=== PATIENT | female | born 1945 | race Two or more races ===

== ENCOUNTER 2019-07-13 22:54 | Emergency (ER) | payer BC, MEDICARE, OTHER ==
[~2019-07-13] VITALS: Ht 167.6 cm; Wt 83.9 kg
--- NOTE | 2019-07-13 23:00 | NUR ---
biba for evaluation of abd pain and backache. - n/v, - diarrhea, - hematuria or dysuria.
[2019-07-13] MEDS ORDERED: IV NS 0.9% 1,000 ML BAG IV ONE (23:30)
[2019-07-13 23:38] LABS: BASOPHILS % (AUTO) 0.4 % (0.0-2.0); EOSINOPHILS % (AUTO) 1.8 % (0.0-6.0); HEMATOCRIT 40 % (33-45); HEMOGLOBIN 13.4 g/dL (11.5-14.8); MEAN CORPUSCULAR HGB CONC 33 g/dl (31.0-36.0); MEAN CORPUSCULAR VOLUME 83 fL (82-100); MONOCYTES # (AUTO) 0.9 /CMM (0.1-1.30); NEUTROPHILS # (AUTO) 9.1 /CMM (1.8-8.9); NEUTROPHILS % (AUTO) 74.8 % (43.0-81.0); PLATELET COUNT (AUTO) 254 /CMM (150-450); RED BLOOD CELL COUNT(AUTO) 4.88 MIL/uL (4.0-5.2); WHITE BLOOD COUNT (AUTO) 12.2 K/uL (4.3-11.0)
--- NOTE | 2019-07-13 23:45 | NUR ---
us tech at the bed side
[2019-07-13 23:46] LABS: CALCIUM, SERUM 10.2 mg/dL (8.5-10.1); CARBON DIOXIDE 27 mmol/L (21-32); CHLORIDE 103 mmol/L (98-107); GLUCOSE 153 mg/dL (74-106); POTASSIUM 4.1 mmol/L (3.5-5.1); SODIUM SERUM 140 mmol/L (136-145); UREA NITROGEN, BLOOD 12 mg/dL (7-18)
[2019-07-13 23:50] LABS: ALANINE AMINOTRANSFERASE 59 U/L (12-78); ALBUMIN 3.6 g/dL (3.4-5.0); ALKALINE PHOSPHATASE 97 U/L (46-116); ASPARTATE AMINOTRANSFERASE 29 U/L (15-37); BILIRUBIN,DIRECT 0.1 mg/dL (0.0-0.2); BILIRUBIN,TOTAL 0.4 mg/dL (0.2-1.0); LIPASE 109 U/L (73-393); TOTAL PROTEIN, SERUM 7.7 g/dL (6.4-8.2)
[2019-07-13] MEDS ORDERED: IOHEXOL-300 100 ML VIAL IV ONE (23:52)
[2019-07-13] MEDS ORDERED: CT SWABBABLE VALVE TRANS SET 1 EA INFUS.SET MC ONE (23:52)
[2019-07-14 01:46] LABS: APPEARANCE,URINE Clear (CLEAR); BILIRUBIN,URINE Negative (NEGATIVE); BLOOD, URINE Negative Ery/uL (NEGATIVE); COLOR,URINE Yellow (YELLOW); KETONES,URINE 15 (NEGATIVE); LEUKOCYTE ESTERASE ,URINE Negative (NEGATIVE); NITRITE, URINE Negative (NEGATIVE); PROTEIN,URINE Negative (NEGATIVE); UGLUCOSE 500 MG/DL mg/dL (NEGATIVE); UROBILINOGEN,URINE 0.2 EU/dL (0.2)
--- NOTE | 2019-07-14 02:10 | NUR ---
IV removed. Catheter intact and site benign. Pressure and 4x4 applied to site. No bleeding noted.Patient discharged to home in stable condition. Rx and Written and verbal after care instructions given. Patient verbalizes understanding of instruction.
[2019-07-14 02:14] VITALS: BP 143/78
[2019-07-14 03:58] LABS: BACTERIA,URINE Few /HPF (None Seen); RBC,URINE 0-2 /HPF (0-2); SQUAMOUS EPITHELIAL CELL,UR Few /HPF (None Seen)
[2019-07-15] MEDS ORDERED: VALS80TA2 PO (17:52)
[2019-07-15] MEDS ORDERED: DULA0.75 SQ (17:52)
[2019-07-15] MEDS ORDERED: EMPA1TAB9 PO (17:54)
== END 2019-07-14 02:15 | disposition home or self-care (01) ==
LOC: ER 22:56
DX: K80.20 Calculus of gallbladder without cholecystitis without obstruction (principal); E11.65 Type 2 diabetes mellitus with hyperglycemia; M54.5 Low back pain; I10 Essential (primary) hypertension
CPT/HCPCS: 36415; 71045; 76705; 80048; 80076; 81001; 82150; 83690; 84484; 85025; 85730; 93005; 96360; 99284; J7030; Q9967; 74178; 81000-TC

== ENCOUNTER 2019-07-15 13:34 | Inpatient (IN) | payer MEDICARE, BC ==
[~2019-07-15] VITALS: Ht 167.6 cm; Wt 95.3 kg
[2019-07-15] MEDS ORDERED: IV NS 0.9% 1,000 ML BAG IV ONE (15:00)
[2019-07-15 15:09] LABS: BASOPHILS % (AUTO) 0.1 % (0.0-2.0); HEMATOCRIT 40 % (33-45); HEMOGLOBIN 12.9 g/dL (11.5-14.8); LYMPHOCYTES # (AUTO) 1.1 /CMM (0.8-4.8); LYMPHOCYTES % (AUTO) 4.5 % (20.0-44.0); MEAN CORPUSCULAR HGB CONC 32 g/dl (31.0-36.0); MEAN CORPUSCULAR VOLUME 84 fL (82-100); MONOCYTES # (AUTO) 2.2 /CMM (0.1-1.30); MONOCYTES % (AUTO) 9.3 % (2.0-12.0); NEUTROPHILS # (AUTO) 20.6 /CMM (1.8-8.9); NEUTROPHILS % (AUTO) 86.1 % (43.0-81.0); PLATELET COUNT (AUTO) 193 /CMM (150-450); RED BLOOD CELL COUNT(AUTO) 4.81 MIL/uL (4.0-5.2); WHITE BLOOD COUNT (AUTO) 23.9 K/uL (4.3-11.0)
[2019-07-15 15:16] LABS: CALCIUM, SERUM 9.3 mg/dL (8.5-10.1); CARBON DIOXIDE 25 mmol/L (21-32); CHLORIDE 101 mmol/L (98-107); CREATININE 0.8 mg/dL (0.6-1.3); GLUCOSE 196 mg/dL (74-106); POTASSIUM 4.5 mmol/L (3.5-5.1); SODIUM SERUM 137 mmol/L (136-145); UREA NITROGEN, BLOOD 12 mg/dL (7-18)
[2019-07-15 15:22] LABS: ALANINE AMINOTRANSFERASE 35 U/L (12-78); ALKALINE PHOSPHATASE 83 U/L (46-116); ASPARTATE AMINOTRANSFERASE 25 U/L (15-37); BILIRUBIN,DIRECT 0.2 mg/dL (0.0-0.2); LIPASE 45 U/L (73-393)
[2019-07-15] MEDS ORDERED: IV NS 0.9% 250 ML IV ONE (16:57)
[2019-07-15] MEDS ORDERED: IOHEXOL-300 100 ML VIAL IV ONE (16:57)
[2019-07-15] MEDS ORDERED: CT SWABBABLE VALVE TRANS SET 1 EA INFUS.SET MC ONE (16:57)
[2019-07-15 17:27] LABS: APPEARANCE,URINE Clear (CLEAR); BLOOD, URINE Negative Ery/uL (NEGATIVE); COLOR,URINE Yellow (YELLOW); KETONES,URINE 80 (NEGATIVE); LEUKOCYTE ESTERASE ,URINE Negative (NEGATIVE); NITRITE, URINE Negative (NEGATIVE); PROTEIN,URINE Trace mg/dl (NEGATIVE); UGLUCOSE 500 MG/DL mg/dL (NEGATIVE); UROBILINOGEN,URINE 0.2 EU/dL (0.2)
[2019-07-15 17:28] LABS: BILIRUBIN,URINE NEGATIVE (NEGATIVE)
[2019-07-15 17:43] LABS: BACTERIA,URINE Rare /HPF (None Seen); RBC,URINE 0-2 /HPF (0-2); SQUAMOUS EPITHELIAL CELL,UR Few /HPF (None Seen); WBC,URINE 0-2 /HPF (0-3)
[2019-07-15] MEDS ORDERED: VALS80TA2 PO (17:52)
[2019-07-15] MEDS ORDERED: DULA0.75 SQ (17:52)
[2019-07-15] MEDS ORDERED: EMPA1TAB9 PO (17:54)
[2019-07-15 20:45] VITALS: BP 145/80
[2019-07-15] MEDS ORDERED: DEXTROSE 50%-WATER 50 ML DISP.SYRIN IV PRN (21:30)
[2019-07-15] MEDS ORDERED: ACETAMINOPHEN 325 MG TABLET PO PRN (21:30)
[2019-07-15] MEDS ORDERED: KETOROLAC TROMETHAMINE INJ 30 MG/ML VIAL IV PRN (21:30)
[2019-07-15] MEDS ORDERED: HYDROCODONE/APAP 5/325MG 1 EACH TABLET PO PRN (21:30)
[2019-07-15] MEDS ORDERED: Z GUARD REMEDY 2 OZ OINT TP PRN (21:30)
[2019-07-15] MEDS ORDERED: ZOLPIDEM TARTRATE 5 MG TABLET PO PRN (21:30)
[2019-07-15] MEDS ORDERED: ONDANSETRON HCL/PF 4 MG/2 ML VIAL IVP PRN (21:30)
[2019-07-15] MEDS ORDERED: MAGNESIUM HYDROXIDE 30 ML UDC PO PRN (21:30)
[2019-07-15] MEDS: IV NS 0.9% 1,000 ML IV PRN (23:23)
[2019-07-16] VITALS (43 sets, daily range): BP systolic 89–150; BP diastolic 47–80
[2019-07-16] MEDS ORDERED: PIPERACILLIN /TAZOBACTAM 3.375 G VIAL IV ONE ×2 (00:01→05:57)
[2019-07-16] MEDS: PIPERACILLIN /TAZOBACTAM 3.375 G in IV D5W 50 ML IV SCH ×2 (00:10→06:05)
[2019-07-16] MEDS: BLOOD SUGAR DIAGNOSTIC 1 EACH STRIP IN SCH ×5 (00:32→23:41)
[2019-07-16 06:34] LABS: BASOPHILS % (AUTO) 0.1 % (0.0-2.0); EOSINOPHILS % (AUTO) 0.1 % (0.0-6.0); HEMATOCRIT 37 % (33-45); LYMPHOCYTES # (AUTO) 1.2 /CMM (0.8-4.8); LYMPHOCYTES % (AUTO) 6.7 % (20.0-44.0); MEAN CORPUSCULAR HGB CONC 33 g/dl (31.0-36.0); MEAN CORPUSCULAR VOLUME 83 fL (82-100); MONOCYTES # (AUTO) 1.7 /CMM (0.1-1.30); MONOCYTES % (AUTO) 9.1 % (2.0-12.0); NEUTROPHILS # (AUTO) 15.4 /CMM (1.8-8.9); PLATELET COUNT (AUTO) 168 /CMM (150-450); RED BLOOD CELL COUNT(AUTO) 4.41 MIL/uL (4.0-5.2); WHITE BLOOD COUNT (AUTO) 18.3 K/uL (4.3-11.0)
[2019-07-16 07:18] LABS: CALCIUM, SERUM 8.1 mg/dL (8.5-10.1); CREATININE 0.9 mg/dL (0.6-1.3); MAGNESIUM 2.1 mg/dL (1.8-2.4); PHOSPHORUS 2.5 mg/dL (2.5-4.9); POTASSIUM 3.4 mmol/L (3.5-5.1)
[2019-07-16] MEDS ORDERED: BUPIVACAINE 0.5 % PF 150 MG/30 ML VIAL ONE (08:19)
[2019-07-16] MEDS: VALSARTAN 80 MG TABLET PO SCH (09:00)
[2019-07-16] MEDS ORDERED: MIDAZOLAM HCL 2 MG/2ML VIAL ONE (09:40)
[2019-07-16] MEDS ORDERED: FENTANYL PF 100MCG/2ML AMPUL ONE (09:40)
[2019-07-16] MEDS ORDERED: MORPHINE SULFATE INJ 2 MG/ML DISP.SYRIN IV PRN ×2 (10:00→13:30)
[2019-07-16] MEDS ORDERED: PROPOFOL 100 ML IV PRN (11:00)
[2019-07-16] MEDS ORDERED: FENTANYL PF 100MCG/2ML AMPUL IV PRN (11:00)
[2019-07-16] MEDS ORDERED: DOPamine 400 MG in IV D5W 250 ML IV PRN (11:00)
[2019-07-16 11:20] LABS: ABG BASE EXCESS -6.4 mmol/L; ABG OXYGEN SATURATION 91.5 % (92.0-98.5); ABG PCO2 35.2 mmHg (35.0-45.0); ABG PO2 64.9 mmHg (75.0-100.0); AaDO2 612.9 mmHg; COHb 0.9 % (0.5-1.5); MetHb 0.7 % (0.0-1.5); PEEP,BG 5 cm H2O; SITE, ABG A-Line; VT, ABG 800 mL
[2019-07-16] MEDS: POTASSIUM CL. PREMIX PERIPHER. 50 ML IV SCH ×2 (11:28→12:30)
[2019-07-16] MEDS: IV NS 0.9% 1,000 ML IV PRN (11:29)
[2019-07-16] MEDS ORDERED: MIDAZOLAM HCL 2 MG/2ML VIAL IV PRN (12:00)
[2019-07-16] MEDS ORDERED: HYDROCODONE/APAP 5/325MG 1 EACH TABLET PO PRN (13:30)
[2019-07-16] MEDS: PIPERACILLIN /TAZOBACTAM 3.375 G in IV D5W 100 ML IV SCH ×2 (14:16→22:17)
[2019-07-16 14:37] LABS: ABG BASE EXCESS -6.1 mmol/L; ABG OXYGEN SATURATION 96.3 % (92.0-98.5); ABG PCO2 33.8 mmHg (35.0-45.0); ABG PH 7.356 (7.350-7.450); AaDO2 86.2 mmHg; COHb 0.3 % (0.5-1.5); MetHb 0.7 % (0.0-1.5); O2Hb 95.3 % (94.0-97.0); SITE, ABG A-Line; VENT MODE, BG CPAP5 / PS 10
[2019-07-16] MEDS ORDERED: ACETAMINOPHEN 650 MG/SUPP.RECT RC PRN (16:00)
[2019-07-17] VITALS (20 sets, daily range): BP systolic 93–142; BP diastolic 45–77
[2019-07-17] MEDS: IV NS 0.9% 1,000 ML IV PRN ×2 (02:00→13:47)
[2019-07-17] MEDS ORDERED: ALBUMIN 25% 50 ML IV ONE ×2 (02:15→02:18)
[2019-07-17 04:28] LABS: HEMATOCRIT 32 % (33-45); HEMOGLOBIN 10.5 g/dL (11.5-14.8); LYMPHOCYTES # (AUTO) 0.8 /CMM (0.8-4.8); LYMPHOCYTES % (AUTO) 5.8 % (20.0-44.0); MEAN CORPUSCULAR HGB CONC 33 g/dl (31.0-36.0); MEAN CORPUSCULAR VOLUME 84 fL (82-100); MONOCYTES # (AUTO) 1.1 /CMM (0.1-1.30); MONOCYTES % (AUTO) 7.8 % (2.0-12.0); NEUTROPHILS # (AUTO) 12.3 /CMM (1.8-8.9); NEUTROPHILS % (AUTO) 86.4 % (43.0-81.0); PLATELET COUNT (AUTO) 173 /CMM (150-450); RED BLOOD CELL COUNT(AUTO) 3.81 MIL/uL (4.0-5.2); WHITE BLOOD COUNT (AUTO) 14.3 K/uL (4.3-11.0)
[2019-07-17 04:52] LABS: APPEARANCE,URINE CLOUDY (CLEAR); BILIRUBIN,URINE 1+ (NEGATIVE); BLOOD, URINE NEGATIVE Ery/uL (NEGATIVE); COLOR,URINE YELLOW (YELLOW); KETONES,URINE 1+ (NEGATIVE); LEUKOCYTE ESTERASE ,URINE NEGATIVE (NEGATIVE); NITRITE, URINE NEGATIVE (NEGATIVE); PH,URINE 5.5 (5.0-8.0); PROTEIN,URINE TRACE mg/dl (NEGATIVE); UGLUCOSE 3+ mg/dL (NEGATIVE); UROBILINOGEN,URINE 0.2 EU/dL (0.2)
[2019-07-17 04:53] LABS: CALCIUM, SERUM 8.1 mg/dL (8.5-10.1); CARBON DIOXIDE 25 mmol/L (21-32); CHLORIDE 107 mmol/L (98-107); CREATININE 0.9 mg/dL (0.6-1.3); GLUCOSE 170 mg/dL (74-106); MAGNESIUM 2.3 mg/dL (1.8-2.4); PHOSPHORUS 2.8 mg/dL (2.5-4.9); POTASSIUM 3.9 mmol/L (3.5-5.1); SODIUM SERUM 141 mmol/L (136-145); UREA NITROGEN, BLOOD 27 mg/dL (7-18)
[2019-07-17 05:05] LABS: BACTERIA,URINE Few /HPF (None Seen); RBC,URINE 0-2 /HPF (0-2); SQUAMOUS EPITHELIAL CELL,UR Rare /HPF (None Seen); URINE AMORPHOUS URATE Many /HPF (None Seen); WBC,URINE 0-2 /HPF (0-3)
[2019-07-17] MEDS: PIPERACILLIN /TAZOBACTAM 3.375 G in IV D5W 100 ML IV SCH ×3 (05:22→22:02)
[2019-07-17] MEDS: BLOOD SUGAR DIAGNOSTIC 1 EACH STRIP IN SCH ×4 (05:31→23:20)
[2019-07-17] MEDS: VALSARTAN 80 MG TABLET PO SCH (08:12)
[2019-07-17] MEDS ORDERED: MENTHOL/CETYLPYRD (CEPACOL) 1 LOZ LOZENGE PO PRN (11:30)
[2019-07-17] MEDS: INSULIN REGULAR, HUMAN 100 UNIT/ML 3 ML VIAL SQ PRN (11:41)
[2019-07-17] MEDS: ACETYLCYSTEINE 10% SOLN 400 MG/4 ML VIAL NEB SCH ×2 (14:00→23:51)
[2019-07-17] MEDS: ALBUTEROL FS 2.5 MG/0.5 ML VIAL.NEB NEB SCH ×2 (14:00→19:41)
[2019-07-17] MEDS: IPRATROPIUM NEB FS 0.5 MG/2.5 ML AMPUL.NEB NEB SCH ×2 (14:00→19:41)
[2019-07-17 17:10] LABS: ALBUMIN 2.2 g/dL (3.4-5.0); BILIRUBIN,TOTAL 0.5 mg/dL (0.2-1.0); CALCIUM, SERUM 8.3 mg/dL (8.5-10.1); CREATININE 0.9 mg/dL (0.6-1.3); POTASSIUM 3.5 mmol/L (3.5-5.1); TOTAL PROTEIN, SERUM 6.3 g/dL (6.4-8.2)
[2019-07-18 00:53] VITALS: BP 132/59
[2019-07-18] MEDS: IV NS 0.9% 1,000 ML IV PRN (03:45)
[2019-07-18 04:00] VITALS: BP 127/61
[2019-07-18] MEDS: PIPERACILLIN /TAZOBACTAM 3.375 G in IV D5W 100 ML IV SCH ×3 (04:58→20:17)
[2019-07-18] MEDS: BLOOD SUGAR DIAGNOSTIC 1 EACH STRIP IN SCH ×3 (05:19→23:30)
[2019-07-18 07:13] LABS: BASOPHILS % (AUTO) 0.4 % (0.0-2.0); EOSINOPHILS % (AUTO) 1.1 % (0.0-6.0); HEMATOCRIT 32 % (33-45); HEMOGLOBIN 10.4 g/dL (11.5-14.8); LYMPHOCYTES # (AUTO) 1.2 /CMM (0.8-4.8); LYMPHOCYTES % (AUTO) 14.9 % (20.0-44.0); MEAN CORPUSCULAR HGB CONC 33 g/dl (31.0-36.0); MEAN CORPUSCULAR VOLUME 84 fL (82-100); MONOCYTES # (AUTO) 0.7 /CMM (0.1-1.30); MONOCYTES % (AUTO) 9.1 % (2.0-12.0); NEUTROPHILS % (AUTO) 74.5 % (43.0-81.0); PLATELET COUNT (AUTO) 199 /CMM (150-450); WHITE BLOOD COUNT (AUTO) 8.1 K/uL (4.3-11.0)
[2019-07-18] MEDS: IPRATROPIUM NEB FS 0.5 MG/2.5 ML AMPUL.NEB NEB SCH ×4 (07:44→20:03)
[2019-07-18] MEDS: ALBUTEROL FS 2.5 MG/0.5 ML VIAL.NEB NEB SCH ×4 (07:44→20:03)
[2019-07-18] MEDS: ACETYLCYSTEINE 10% SOLN 400 MG/4 ML VIAL NEB SCH ×3 (07:45→23:51)
[2019-07-18 07:57] LABS: BILIRUBIN,TOTAL 0.6 mg/dL (0.2-1.0); CREATININE 0.8 mg/dL (0.6-1.3); MAGNESIUM 1.9 mg/dL (1.8-2.4); PHOSPHORUS 1.7 mg/dL (2.5-4.9); POTASSIUM 3.5 mmol/L (3.5-5.1); TOTAL PROTEIN, SERUM 5.8 g/dL (6.4-8.2)
[2019-07-18 08:00] VITALS: BP 130/63
[2019-07-18] MEDS: VALSARTAN 80 MG TABLET PO SCH (09:07)
[2019-07-18] MEDS ORDERED: K PHOS NEUTRAL 250 MG TABLET PO ONE (11:30)
[2019-07-18 12:00] VITALS: BP_SYST 130; BP_SYST 134; BP_DIAS 63; BP_DIAS 69
[2019-07-18] MEDS ORDERED: FUROSEMIDE 20 MG/2 ML VIAL IV ONE (12:00)
[2019-07-18 16:00] VITALS: BP_SYST 134; BP_SYST 135; BP_DIAS 67; BP_DIAS 69
[2019-07-18 20:00] VITALS: BP 136/61
[2019-07-18] MEDS: INSULIN REGULAR, HUMAN 100 UNIT/ML 3 ML VIAL SQ PRN (23:31)
[2019-07-19] MEDS: PIPERACILLIN /TAZOBACTAM 3.375 G in IV D5W 100 ML IV SCH ×3 (04:08→20:30)
[2019-07-19] MEDS: BLOOD SUGAR DIAGNOSTIC 1 EACH STRIP IN SCH ×4 (05:23→23:38)
[2019-07-19 06:58] LABS: BASOPHILS % (AUTO) 0.8 % (0.0-2.0); EOSINOPHILS % (AUTO) 2.6 % (0.0-6.0); HEMATOCRIT 32 % (33-45); HEMOGLOBIN 10.7 g/dL (11.5-14.8); LYMPHOCYTES # (AUTO) 1.2 /CMM (0.8-4.8); LYMPHOCYTES % (AUTO) 19.2 % (20.0-44.0); MEAN CORPUSCULAR HGB CONC 33 g/dl (31.0-36.0); MEAN CORPUSCULAR VOLUME 84 fL (82-100); MONOCYTES # (AUTO) 0.7 /CMM (0.1-1.30); MONOCYTES % (AUTO) 10.6 % (2.0-12.0); NEUTROPHILS # (AUTO) 4.2 /CMM (1.8-8.9); NEUTROPHILS % (AUTO) 66.8 % (43.0-81.0); PLATELET COUNT (AUTO) 203 /CMM (150-450); RED BLOOD CELL COUNT(AUTO) 3.88 MIL/uL (4.0-5.2); WHITE BLOOD COUNT (AUTO) 6.3 K/uL (4.3-11.0)
[2019-07-19 07:36] LABS: CALCIUM, SERUM 8.6 mg/dL (8.5-10.1); CREATININE 0.8 mg/dL (0.6-1.3); MAGNESIUM 1.8 mg/dL (1.8-2.4); PHOSPHORUS 2.7 mg/dL (2.5-4.9); POTASSIUM 3.4 mmol/L (3.5-5.1)
[2019-07-19] MEDS: ALBUTEROL FS 2.5 MG/0.5 ML VIAL.NEB NEB SCH ×4 (07:57→19:55)
[2019-07-19] MEDS: IPRATROPIUM NEB FS 0.5 MG/2.5 ML AMPUL.NEB NEB SCH ×4 (07:57→19:55)
[2019-07-19] MEDS: ACETYLCYSTEINE 10% SOLN 400 MG/4 ML VIAL NEB SCH ×3 (07:57→22:41)
[2019-07-19 08:00] VITALS: BP 122/58
[2019-07-19] MEDS: VALSARTAN 80 MG TABLET PO SCH (09:00)
[2019-07-19] MEDS ORDERED: POTASSIUM CHLORIDE 20 MEQ TAB.PRT.SR PO SCH (10:30)
[2019-07-19] MEDS: INSULIN REGULAR, HUMAN 100 UNIT/ML 3 ML VIAL SQ PRN ×2 (12:22→17:13)
[2019-07-19] MEDS ORDERED: POTASSIUM CHLORIDE 20 MEQ TAB.PRT.SR PO ONE (15:00)
[2019-07-19 16:00] VITALS: BP 120/62
[2019-07-19 18:29] VITALS: BP 109/64
[2019-07-19 20:00] VITALS: BP 159/69
[2019-07-20 04:00] VITALS: BP 146/70
[2019-07-20] MEDS: PIPERACILLIN /TAZOBACTAM 3.375 G in IV D5W 100 ML IV SCH ×2 (04:10→12:05)
[2019-07-20] MEDS: BLOOD SUGAR DIAGNOSTIC 1 EACH STRIP IN SCH ×2 (05:45→11:48)
[2019-07-20 08:00] VITALS: BP 152/73
[2019-07-20] MEDS: IPRATROPIUM NEB FS 0.5 MG/2.5 ML AMPUL.NEB NEB SCH ×2 (08:10→11:34)
[2019-07-20] MEDS: ACETYLCYSTEINE 10% SOLN 400 MG/4 ML VIAL NEB SCH (08:11)
[2019-07-20] MEDS: ALBUTEROL FS 2.5 MG/0.5 ML VIAL.NEB NEB SCH ×2 (08:11→11:34)
[2019-07-20 08:33] VITALS: BP 152/73
[2019-07-20] MEDS: VALSARTAN 80 MG TABLET PO SCH (08:33)
[2019-07-20 08:36] LABS: CALCIUM, SERUM 8.7 mg/dL (8.5-10.1); CREATININE 0.8 mg/dL (0.6-1.3); POTASSIUM 3.6 mmol/L (3.5-5.1)
[2019-07-20] MEDS ORDERED: CIPR-262 PO (10:13)
[2019-07-20] MEDS ORDERED: METR500T PO (10:13)
[2019-07-20] MEDS: INSULIN REGULAR, HUMAN 100 UNIT/ML 3 ML VIAL SQ PRN (11:48)
== END 2019-07-20 14:20 | disposition home health service (06) | DRG 417 ==
LOC: ER 13:41 → MEDSG1 20:09 → ICU 07-16 10:00 → TELE-TD 07-17 15:43 → MEDSG1 07-18 09:47
PROVIDERS: ADMIT Nurse Practitioner Acute Care; ATTEND Nurse Practitioner Acute Care
PROC: 0FT44ZZ Resection of Gallbladder, Percutaneous Endoscopic Approach (ICD-10-PCS; principal; 2019-07-16)
DX: K81.0 Acute cholecystitis (principal); J96.00 Acute respiratory failure, unspecified whether with hypoxia or hypercapnia; E44.1 Mild protein-calorie malnutrition; D68.59 Other primary thrombophilia; J98.11 Atelectasis; E11.9 Type 2 diabetes mellitus without complications; K74.60 Unspecified cirrhosis of liver; I10 Essential (primary) hypertension; E66.01 Morbid (severe) obesity due to excess calories; D64.9 Anemia, unspecified; R16.1 Splenomegaly, not elsewhere classified; Z68.33 Body mass index [BMI] 33.0-33.9, adult; E88.09 Other disorders of plasma-protein metabolism, not elsewhere classified; D72.829 Elevated white blood cell count, unspecified; Z90.710 Acquired absence of both cervix and uterus; Z79.84 Long term (current) use of oral hypoglycemic drugs
CPT/HCPCS: 36415; 36600; 71045-TC; 74022-TC; 74178; 76705-TC; 80048-TC; 80053-TC; 80061-TC; 80076-TC; 81000-TC; 82150-TC; 82803-TC; 82962-TC; 83605-TC; 83690-TC; 83735-TC; 84100-TC; 84484-TC; 85025-TC; 85730-TC; 87040-TC; 87081-TC; 87086-TC; 88304-TC; 88312-TC; 92526; 92611-TC; 94799-TC; 97110-TC; 97116-TC; 97530-TC; A6253; A6403; C1751; G0378; J0690; J1100; J1265; J1815; J1940; J2250; J2543; J2704; J2765; J3010; J3480; J3490; J7030; J7050; J7060; P9047; Q9967

== ENCOUNTER 2020-08-23 17:21 | Emergency (ER) | payer BC, MEDICARE ==
[~2020-08-23] VITALS: Ht 170.2 cm; Wt 90.3 kg
[~2020-08-23 17:21] MED LIST: CIPR-262 PO; DULA0.75 SQ; EMPA1TAB9 PO; METR500T PO; VALS80TA2 PO
--- NOTE | 2020-08-23 17:21 | NUR ---
PT BIBRA FROM HOME C/O ABDOMINAL PAIN FOR 2 WEEKS. PT IS AAOX4, NOT IN RESPIRATORY DISTRESS, HOOKED TO TRUCK DRIVER INSTRUCTOR V/S STABLE, KEPT RESTED AND COMFORTABLE. WILL CONTINUE TO MONITOR.
--- NOTE | 2020-08-23 17:25 | NUR ---
IV LINE ESTABLISHED BLOOD DRAWN AND SENT TO LAB.
--- NOTE | 2020-08-23 17:32 | NUR ---
SEEN AND EXAMINED BY .
--- NOTE | 2020-08-23 17:40 | NUR ---
PT REFUSED IV INSERTION AND INSISTED TO START ONLY IN THE AC. MD JIMENES.
[2020-08-23] MEDS ORDERED: IOHEXOL-300 100 ML VIAL IV ONE (17:46)
[2020-08-23] MEDS ORDERED: IV NS 0.9% 250 ML IV ONE (17:46)
--- NOTE | 2020-08-23 17:46 | NUR ---
ER PHLEB AT BEDSIDE FOR BLOOD DRAW.
[2020-08-23] MEDS: MORPHINE SULFATE INJ 2 MG/ML DISP.SYRIN IV ONE ×2 (17:47→17:59)
[2020-08-23] MEDS ORDERED: MORPHINE SULFATE INJ 4 MG/ML DISP.SYRIN ONE (17:58)
[2020-08-23 18:18] LABS: BASOPHILS % (AUTO) 0.4 % (0.0-2.0); EOSINOPHILS % (AUTO) 0.4 % (0.0-6.0); HEMATOCRIT 39 % (33-45); HEMOGLOBIN 12.6 g/dL (11.5-14.8); LYMPHOCYTES # (AUTO) 0.9 /CMM (0.8-4.8); LYMPHOCYTES % (AUTO) 28.2 % (20.0-44.0); MEAN CORPUSCULAR HGB CONC 33 g/dl (31.0-36.0); MEAN CORPUSCULAR VOLUME 79 fL (82-100); MONOCYTES # (AUTO) 0.3 /CMM (0.1-1.30); NEUTROPHILS # (AUTO) 1.9 /CMM (1.8-8.9); PLATELET COUNT (AUTO) 96 /CMM (150-450); RED BLOOD CELL COUNT(AUTO) 4.88 MIL/uL (4.0-5.2); WHITE BLOOD COUNT (AUTO) 3.1 K/uL (4.3-11.0)
--- NOTE | 2020-08-23 18:18 | NUR ---
LEVELMAN AT BEDSIDE FOR XRAY.
[2020-08-23] MEDS ORDERED: MECLIZINE HCL 25 MG TABLET ONE (18:19)
[2020-08-23] MEDS ORDERED: ONDANSETRON HCL/PF 4 MG/2 ML VIAL ONE (18:19)
[2020-08-23] MEDS ORDERED: MECLIZINE HCL 12.5 MG TABLET PO ONE (18:30)
[2020-08-23] MEDS ORDERED: ONDANSETRON HCL/PF - ER 4 MG/2 ML VIAL IV ONE (18:30)
[2020-08-23 18:31] LABS: CALCIUM, SERUM 8.5 mg/dL (8.5-10.1); CARBON DIOXIDE 24 mmol/L (21-32); CHLORIDE 103 mmol/L (98-107); CREATININE 0.8 mg/dL (0.6-1.3); GLUCOSE 123 mg/dL (74-106); SODIUM SERUM 140 mmol/L (136-145); UREA NITROGEN, BLOOD 15 mg/dL (7-18)
--- NOTE | 2020-08-23 18:39 | NUR ---
URINE SPECIMEN COLLECTED AND SENT TO LAB.
[2020-08-23 18:41] LABS: ALANINE AMINOTRANSFERASE 47 U/L (12-78); ALBUMIN 2.9 g/dL (3.4-5.0); ALKALINE PHOSPHATASE 101 U/L (46-116); ASPARTATE AMINOTRANSFERASE 59 U/L (15-37); BILIRUBIN,DIRECT 0.1 mg/dL (0.0-0.2); BILIRUBIN,TOTAL 0.4 mg/dL (0.2-1.0); LIPASE 116 U/L (73-393); TOTAL PROTEIN, SERUM 6.7 g/dL (6.4-8.2)
[2020-08-23 19:19] LABS: APPEARANCE,URINE CLEAR (CLEAR); BILIRUBIN,URINE SMALL (NEGATIVE); COLOR,URINE DARK YELLO (YELLOW); KETONES,URINE TRACE (NEGATIVE); LEUKOCYTE ESTERASE ,URINE NEGATIVE (NEGATIVE); NITRITE, URINE NEGATIVE (NEGATIVE); PROTEIN,URINE TRACE mg/dl (NEGATIVE); UGLUCOSE 250 MG/DL mg/dL (NEGATIVE)
[2020-08-23 19:27] LABS: BLOOD, URINE NEGATIVE Ery/uL (NEGATIVE)
[2020-08-23 19:36] LABS: LYMPHOCYTES % (MANUAL) 30 % (16-48); MONOCYTES % (MANUAL) 8 % (0-11.0); NEUTROPHILS % (MANUAL) 62 (42-76)
--- NOTE | 2020-08-23 21:39 | NUR ---
Patient discharged to home in stable condition. Written and verbal after care instructions given. Patient verbalizes understanding of instruction. IV removed. Catheter intact and site benign. Pressure and 4x4 applied to site. No bleeding noted.
[2020-08-23 22:47] VITALS: BP 139/80
== END 2020-08-23 21:39 | disposition home or self-care (01) ==
LOC: ER 17:29
DX: U07.1 COVID-19 (principal); R19.7 Diarrhea, unspecified; R10.9 Unspecified abdominal pain; E11.9 Type 2 diabetes mellitus without complications; Z79.84 Long term (current) use of oral hypoglycemic drugs; Z90.710 Acquired absence of both cervix and uterus; R91.8 Other nonspecific abnormal finding of lung field
CPT/HCPCS: 36415; 71045; 74177; 80048; 80076; 81001; 83605; 83690; 84484; 85007; 85025; 87426; 93005; 96374; 99285; J2270; J2405 ×2; J7050; J8597; Q9967; 81000-TC; C9803

== ENCOUNTER 2020-10-04 19:39 | Inpatient (IN) | payer MEDICARE ==
[~2020-10-04] VITALS: Ht 170.2 cm; Wt 69.4 kg
--- NOTE | 2020-10-04 19:45 | NUR ---
PT COREYRA 102 FROM HOME FOR C/O ALOC X1 DAY. PER EMS , PT WAS DIAGNOSED W COVID A FEW WEEKS AGO AND IS CURRENTLY TAKING CIPRO FOR UTI. PT AAOX1, RESPIRATIONS EVEN AND UNLABORED ON RA W/ NAD NOTED. PT CONNECTED TO THE RESOLUTION AGENT AND POX
[2020-10-04] MEDS ORDERED: ACETAMINOPHEN 650 MG/SUPP.RECT RC ONE ×2 (20:06→20:30)
--- NOTE | 2020-10-04 20:07 | NUR ---
XRAY AT BEDSIDE
--- NOTE | 2020-10-04 20:20 | NUR ---
GLAZIER SUPERVISOR AT BEDSIDE FOR BLOOD DRAW
[2020-10-04 20:28] LABS: BASOPHILS % (AUTO) 0.5 % (0.0-2.0); EOSINOPHILS % (AUTO) 0.2 % (0.0-6.0); HEMATOCRIT 46 % (33-45); LYMPHOCYTES # (AUTO) 0.5 /CMM (0.8-4.8); LYMPHOCYTES % (AUTO) 5.4 % (20.0-44.0); MEAN CORPUSCULAR HGB CONC 33 g/dl (31.0-36.0); MEAN CORPUSCULAR VOLUME 83 fL (82-100); MONOCYTES # (AUTO) 0.7 /CMM (0.1-1.30); NEUTROPHILS # (AUTO) 7.4 /CMM (1.8-8.9); NEUTROPHILS % (AUTO) 85.9 % (43.0-81.0); PLATELET COUNT (AUTO) 365 /CMM (150-450); RED BLOOD CELL COUNT(AUTO) 5.53 MIL/uL (4.0-5.2); WHITE BLOOD COUNT (AUTO) 8.6 K/uL (4.3-11.0)
[2020-10-04 20:37] LABS: BILIRUBIN,URINE Negative (NEGATIVE); BLOOD, URINE Moderate Ery/uL (NEGATIVE); COLOR,URINE DARK YELLOW (YELLOW); LEUKOCYTE ESTERASE ,URINE Large (NEGATIVE); NITRITE, URINE Positive (NEGATIVE); PH,URINE 6.5 (5.0-8.0); PROTEIN,URINE >=300 mg/dl (NEGATIVE); UGLUCOSE 500 MG/DL mg/dL (NEGATIVE); UROBILINOGEN,URINE 0.2 EU/dL (0.2)
--- NOTE | 2020-10-04 20:37 | NUR ---
SIMON COLLECTED AND SENT TO LAB
[2020-10-04 20:43] LABS: BACTERIA,URINE 4+ /HPF (None Seen); SQUAMOUS EPITHELIAL CELL,UR Few /HPF (None Seen); WBC,URINE 21-50 /HPF (0-3)
[2020-10-04 20:45] LABS: ALANINE AMINOTRANSFERASE 46 U/L (12-78); ALBUMIN 3.2 g/dL (3.4-5.0); ALKALINE PHOSPHATASE 206 U/L (46-116); ASPARTATE AMINOTRANSFERASE 31 U/L (15-37); BILIRUBIN,DIRECT 0.4 mg/dL (0.0-0.2); BILIRUBIN,TOTAL 0.7 mg/dL (0.2-1.0); CALCIUM, SERUM 10.3 mg/dL (8.5-10.1); CARBON DIOXIDE 24 mmol/L (21-32); CHLORIDE 96 mmol/L (98-107); CREATININE 2.3 mg/dL (0.6-1.3); SODIUM SERUM 132 mmol/L (136-145); TOTAL PROTEIN, SERUM 8.4 g/dL (6.4-8.2); UREA NITROGEN, BLOOD 29 mg/dL (7-18)
[2020-10-04 20:46] LABS: GLUCOSE 392 mg/dL (74-106)
--- NOTE | 2020-10-04 20:49 | NUR ---
(SISTER) [phone] PLEASE CALL FOR UPDATE
--- NOTE | 2020-10-04 21:01 | NUR ---
[facility] ([facility]) AND EMERGENCY CONTACT [phone]
--- NOTE | 2020-10-04 21:27 | NUR ---
Call from lab, rapid covid negative
[2020-10-04] MEDS ORDERED: NS 0.9% IV ONE (22:00)
[2020-10-04] MEDS ORDERED: CEFTRIAXONE 1 G in IV D5W 50 ML IV ONE (22:00)
[2020-10-04] MEDS ORDERED: VANCOMYCIN 1 GM in IV D5W 250 ML IV ONE (22:00)
--- NOTE | 2020-10-04 22:10 | NUR ---
COVIDPCR SAMPLE COLLECTED, SENT TO LAB.
[2020-10-04] MEDS ORDERED: CEFTRIAXONE 1 G VIAL ONE (22:12)
--- NOTE | 2020-10-04 22:23 | NUR ---
REPORT GIVEN TO DEMETRIO NASCIMENTO FOR MELVI
[2020-10-04] MEDS ORDERED: VANCOMYCIN 1 GM VIAL ONE (22:41)
[2020-10-04 23:00] VITALS: BP 164/75
--- NOTE | 2020-10-04 23:04 | NUR ---
PT TRANSFERRED TO ROOM PER ACLS PROTOCOL
--- NOTE | 2020-10-04 23:05 | NUR ---
TELE/SUPERVISOR TAN ROOM NOTES: REPORT GIVEN BY ER NURSE RANDY. PT ARRIVED TO THE UNIT AT 2300, STABLE VIA GURNEY. ON ROOM AIR, TRANSFERRED VIA ACLS PROTOCOL. PT. IS ABLE TO NON VERBAL IN ER PER RN RANDY. PT. IS RESPONSIVE TO STIMULUS. A/OX1, APPEARS TO BE CONFUSED AT THIS TIME AND UNABLE TO ANSWER QUESTIONS FOR ADMISSION. PT IS BED BOUND PER FAMILY. SKIN WAS ASSESSED AND PRESENTED REDNESS ON THE SACRUM WITH SKIN INTACT AND NO OPEN WOUNDS. REDNESS ON THE RIGHT ANKLE AND RIGHT CHEEK. PT DENIES PAIN AT THIS TIME. NO SOB NOTED. BREATHING EVEN AND UNLABORED. NO S/S OF DISTRESS. ORIENTED TO STAFF AND UNIT. SAFETY MEASURES IN PLACE. BED IN LOW, LOCKED POSITION WITH SR UPX2. CALL LIGHT WITHIN REACH. WILL CONTINUE TO MONITOR PT. ACCORDINGLY.
--- NOTE | 2020-10-04 23:20 | NUR ---
TELE/RN NOTES: PT CONNECTED TO THE TELE MONITOR. READING OF ST 130S. PT DENIES PAIN AT THIS TIME. PT CONFUSE AND UNABLE TO COMMUNICATE WELL.
[2020-10-05] MEDS ORDERED: ZOLPIDEM TARTRATE 5 MG TABLET PO PRN
[2020-10-05] MEDS ORDERED: HYDROCODONE/APAP 5/325MG TABLET PO PRN
[2020-10-05] MEDS ORDERED: MAG HYDROX/AL HYDROX/SIMETH 30 ML UDC PO PRN
[2020-10-05] MEDS ORDERED: ONDANSETRON HCL/PF 4 MG/2 ML VIAL IVP PRN
[2020-10-05] MEDS ORDERED: MAGNESIUM HYDROXIDE 30 ML UDC PO PRN
[2020-10-05] MEDS ORDERED: Z GUARD REMEDY 2 OZ OINT TP PRN
--- NOTE | 2020-10-05 00:15 | NUR ---
TELE/RN NOTES: LAB ([facility]) CALLED FOR CRITICAL RESULT LACTIC ACID OF 2.3. NOTIFIED DR. WISE. PER BILLIE, ORDER REPEAT LACTIC ACID BLOOD DRAW FOR 3AM. ORDER CARRIED OUT AND NOTED.
[2020-10-05] MEDS: ENOXAPARIN SODIUM 30 MG/0.3 ML DISP.SYRIN SQ SCH ×2 (00:40→21:14)
[2020-10-05] MEDS ORDERED: hydrALAZINE HCL IV 20 MG VIAL IV PRN (01:00)
--- NOTE | 2020-10-05 01:08 | NUR ---
TELE/RN NOTES: NOTIFIED DR. WISE REGARDING PT'S ELEVATED BP OF 167/90 HR:115. ORDERD HYDRALAZINE 25MG PO Q6 PRN FOR SBP 160.
[2020-10-05] MEDS: hydrALAZINE HCL 25 MG TABLET PO SCH ×2 (01:18→08:13)
[2020-10-05] MEDS ORDERED: IV NS 0.9% 1,000 ML IV ONE (01:30)
[2020-10-05 03:44] LABS: BASOPHILS % (AUTO) 0.4 % (0.0-2.0); HEMATOCRIT 45 % (33-45); HEMOGLOBIN 14.7 g/dL (11.5-14.8); LYMPHOCYTES # (AUTO) 0.4 /CMM (0.8-4.8); LYMPHOCYTES % (AUTO) 4.9 % (20.0-44.0); MEAN CORPUSCULAR HGB CONC 33 g/dl (31.0-36.0); MEAN CORPUSCULAR VOLUME 84 fL (82-100); MONOCYTES # (AUTO) 0.7 /CMM (0.1-1.30); MONOCYTES % (AUTO) 8.4 % (2.0-12.0); NEUTROPHILS # (AUTO) 7.2 /CMM (1.8-8.9); NEUTROPHILS % (AUTO) 86.3 % (43.0-81.0); PLATELET COUNT (AUTO) 297 /CMM (150-450); RED BLOOD CELL COUNT(AUTO) 5.39 MIL/uL (4.0-5.2); WHITE BLOOD COUNT (AUTO) 8.3 K/uL (4.3-11.0)
--- NOTE | 2020-10-05 03:48 | NUR ---
TELE/RN NOTES: DR. WISE INFORMED THAT PT IS HYPERTENSIVE BP OF 167/98. HR: 137. PER BILLIE, STOP FLUIDS FOR NOW AND ORDER CLONIDINE 0.1 MG PO Q8H PRN FOR SBP OVER 160.
[2020-10-05 03:59] LABS: CALCIUM, SERUM 9.7 mg/dL (8.5-10.1); CARBON DIOXIDE 21 mmol/L (21-32); CHLORIDE 98 mmol/L (98-107); CREATININE 1.9 mg/dL (0.6-1.3); MAGNESIUM 1.9 mg/dL (1.8-2.4); PHOSPHORUS 3.4 mg/dL (2.5-4.9); POTASSIUM 4.5 mmol/L (3.5-5.1); SODIUM SERUM 133 mmol/L (136-145); UREA NITROGEN, BLOOD 26 mg/dL (7-18)
[2020-10-05] MEDS ORDERED: CLONIDINE HCL 0.1 MG TABLET PO PRN (04:00)
[2020-10-05 04:02] LABS: GLUCOSE 396 mg/dL (74-106)
[2020-10-05 04:08] VITALS: BP 168/98
[2020-10-05 04:11] LABS: CHOLESTEROL 161 mg/dL (<200); HDL CHOLESTEROL 36 mg/dL (40-60); LDL 106 mg/dL (0-99); THYROID STIMULATING HORMONE 0.149 uIU/mL (0.358-3.74); TRIGLYCERIDES 120 mg/dL (30-150)
--- NOTE | 2020-10-05 04:11 | NUR ---
TELE/RN NOTES: LAB CALLED FOR CRITICAL RESULTS. LACTIC ACID OF 2.9 AND GLUCOSE 396. WILL CONTINUE TO MONITOR.
--- NOTE | 2020-10-05 04:19 | NUR ---
TELE/RN NOTES: PER DR. WISE, CONTINUE FLUIDS AND MAKE SURE PT IS ON A SLIDING SCALE. INFORMED THAT SHE IS ON MILD SLIDING SCALE.
[2020-10-05 04:42] VITALS: BP 158/92
[2020-10-05] MEDS: BLOOD SUGAR DIAGNOSTIC 1 EACH STRIP IN SCH ×2 (06:41→11:49)
[2020-10-05] MEDS: INSULIN REGULAR, HUMAN 100 UNIT/ML 3 ML VIAL SQ PRN ×3 (06:43→17:26)
--- NOTE | 2020-10-05 06:47 | NUR ---
TELE/RN NOTES: ACCUCHECK 463. ADMINISTERED COVERAGE 10UNITS REG INSULIN ORDERED PER SLIDING SCALE. NOTIFIED MAVERICKHI. WILL CONTINUE TO MONITOR.
--- NOTE | 2020-10-05 06:50 | NUR ---
TELE/RN CLOSING NOTES: PT. REMAINS STABLE. RESTING IN BED, A/OX1. NO SIGNIFICANT CHANGES IN CONDITION. PLACED ON 2L OXYGEN VIA NC. TELE READING OF SB 59. PT DENIES PAIN AT THIS TIME. NO SOB NOTED. BREATHING EVEN AND UNLABORED. NO S/S OF DISTRESS. SAFETY MEASURES KEPT IN PLACE. BED IN LOW, LOCKED POSITION WITH SR UPX2. KEPT WARM AND COMFORTABLE, CLEAN AND DRY AT ALL TIMES. ALL NURSING NEEDS MET AND ALL DUE MEDS GIVEN ORDERED. CALL LIGHT WITHIN REACH. WILL ENDORSE TO DAY SHIFT RN TO RECHECK BS. WILL ENDORSE TO DAY SHIFT FOR MELVI.
[2020-10-05] MEDS: PANTOPRAZOLE 40 MG TABLET.DR PO SCH (08:12)
--- NOTE | 2020-10-05 11:39 | NUR ---
WOUND CARE CONSULT: REVIEWED CHART, NURSING DOCUMENTATION AND PHOTOS WHICH INDICATE REDNESS TO RT LATERAL ANKLE AND RASH TO BUTTOCKS, PRESENT ON ADMISSION. RECOMMENDATIONS MADE FOR SKIN PROTECTION. DISCUSSED WITH NURSING STAFF. LOW AIRLOSS BED TO BE PLACED (MIESHA ISOFLEX). MD IN AGREEMENT WITH PLAN OF CARE.
[2020-10-05 11:54] VITALS: BP 139/83
--- NOTE | 2020-10-05 12:04 | NUR ---
Raoul Song notified BS level of 483.
[2020-10-05] MEDS ORDERED: IV NS 0.9% 500 ML IV ONE (13:00)
--- NOTE | 2020-10-05 13:04 | NUR ---
IV 0.9% 500 ml bolus running
[2020-10-05] MEDS ORDERED: DEXTROSE 50%-WATER 50 ML DISP.SYRIN IV PRN ×2 (13:30)
[2020-10-05] MEDS: CARVEDILOL 3.125 MG TABLET PO SCH ×2 (15:02→17:34)
[2020-10-05] MEDS: AMLODIPINE BESYLATE 5 MG TABLET PO SCH (15:03)
[2020-10-05] MEDS: ACETAMINOPHEN 325 MG TABLET PO PRN (15:17)
--- NOTE | 2020-10-05 15:17 | NUR ---
PATIENT NOTED WITH FEVER 101.2 . COOLING MEASURES IMPLEMENTED AND TYLENOL ADMINISTRATED
[2020-10-05] MEDS: CLOTRIMAZOLE/BETAMETASONE DIPROPIONATE 15 GM TUBE TP SCH (17:21)
[2020-10-05] MEDS: BLOOD SUGAR DIAGNOSTIC 1 EACH STRIP VI SCH ×2 (17:24→21:50)
[2020-10-05] MEDS: IV NS 0.9% 1,000 ML IV PRN (18:24)
--- NOTE | 2020-10-05 19:27 | NUR ---
Patient stats she feels better at this moment. VS are stable , afebrile at this time. Noted with low appetite. Skin treated with Lotrimin.IV fluids running as ordered. Patient kept clean and dry, Lotrimin applied to skin with redness and kim. All needs attended. Will endorse to next shift for MELVI .
--- NOTE | 2020-10-05 19:40 | NUR ---
FIBER ARTIST OPENING NOTES RECEIVED PATIENT IN BED, ALERT AND ORIENTED X 2-3. ARGENTINE SPEAKING VERBALLY RESPONSIVE AND ABLE TO FOLLOW SIMPLE DIRECTIONS. BREATHING REGULAR AND UNLABORED ON OXYGEN AT 2L/MIN VIA NASAL CANNULA, LATEST SPO2 96%. RIGHT HAND G22 IV LINE INTACT AND PATENT, INFUSING WELL WITH NO BLEEDING OR S/S OF INFILTRATION NOTED. ON CARDIAC MONITORING WITH SINUS TACHYCARDIA AT 102bpm. DENIES PAIN/DISCOMFORT AT THIS TIME. BED LOW AND LOCKED ON SEMI FOWLERS POSITION. CALL LIGHT IN REACH. WILL CONTINUE TO MONITOR.
[2020-10-05 20:00] VITALS: BP 141/82
[2020-10-05] MEDS: MEROPENEM 500 MG in IV NS 0.9% 50 ML IV SCH (20:41)
[2020-10-05] MEDS: NYSTATIN CREAM 15 GM TUBE TP SCH (20:41)
[2020-10-05] MEDS ORDERED: CEFTRIAXONE 1 G in IV D5W 50 ML IV SCH (21:00)
[2020-10-05] MEDS: FLUCONAZOLE IN NS 100 MG in PREMIX 1 EA IV SCH ×2 (21:13)
--- NOTE | 2020-10-05 21:30 | NUR ---
STRAP SETTER NOTES JONES CATHETER INSERTED, NOTED WITH CLOUDY ORANGY COLORED URINE 850CC FIRST DRAINED OUTPUT.
[2020-10-05] MEDS: *INSULIN REGULAR(HUMULIN R)HUM 100 UNIT/ML VIAL SQ PRN (21:53)
[2020-10-05] MEDS: DOXYCYCLINE 100 MG in IV D5W 100 ML IV SCH (22:15)
[2020-10-06] VITALS: BP 120/60
--- NOTE | 2020-10-06 01:30 | NUR ---
MACARONI PRESS OPERATOR NOTES LAB CALLED TO REPORT COVID NEGATIVE PCR RESULT. RN MODELING ANALYST AND CHARGE NURSE NOTIFIED WITH ORDERS TO TRANSFER PATIENT TO [facility] ROOM 324-1 FOR CONTINUITY OF CARE.
--- NOTE | 2020-10-06 02:00 | NUR ---
TRANSACTIONAL PARALEGAL NOTES TRANSFERRED PATIENT TO ROOM 324-1 VIA ACLS, REPORT GIVEN TO DEMETRIO ROSSI ON BEDSIDE. PATIENT REMAINED ALERT AND ORIENTED X 2-3 WITH NO DISTRESS NOTED. BELONGINGS, MEDICATIONS AND CHART ENDORSED ACCORDINGLY.
--- NOTE | 2020-10-06 02:01 | NUR ---
STRAIGHTENING MACHINE OPERATOR NOTES RECEIVED BEDSIDE REPORT FROM RAHAT ATKINSON FOR MELVI. WILL CONTINUE TO MONITOR.
[2020-10-06] MEDS: IV NS 0.9% 1,000 ML IV PRN ×2 (04:49→15:55)
[2020-10-06] MEDS: INSULIN REGULAR, HUMAN 100 UNIT/ML 3 ML VIAL SQ PRN ×3 (06:34→16:55)
[2020-10-06] MEDS: BLOOD SUGAR DIAGNOSTIC 1 EACH STRIP VI SCH ×4 (06:36→21:46)
--- NOTE | 2020-10-06 06:38 | NUR ---
CONCRETE MIXING TRUCK DRIVER NOTES PATIENT IN BED, ASLEEP, ALERT AND ORIENTED X 2-3. SLOVENIAN SPEAKING. BREATHING EVEN AND UNLABORED ON 2L NC. TELE MONITOR ST. WITH FC RUNNING TEA COLOR CLOUDY URINE. IV ON R HAND 22G RUNNING NS AT 100 ML/HR. SHOWS NO SIGNS OF INFILTRATION, NO REDNESS. ALL DUE MEDICATIONS GIVEN. ALL NEEDS ATTENDED TO. SAFETY PRECAUTIONS IN PLACE. BED IN LOWEST POSITION, LOCKED, AND CALL LIGHT KEPT WITHIN REACH. WILL ENDORSE TO ONCOMING NURSE.
[2020-10-06 07:05] LABS: BASOPHILS % (AUTO) 0.3 % (0.0-2.0); HEMATOCRIT 40 % (33-45); LYMPHOCYTES # (AUTO) 0.7 /CMM (0.8-4.8); LYMPHOCYTES % (AUTO) 8.6 % (20.0-44.0); MEAN CORPUSCULAR HGB CONC 32 g/dl (31.0-36.0); MEAN CORPUSCULAR VOLUME 84 fL (82-100); MONOCYTES # (AUTO) 0.8 /CMM (0.1-1.30); MONOCYTES % (AUTO) 9.8 % (2.0-12.0); NEUTROPHILS # (AUTO) 6.4 /CMM (1.8-8.9); NEUTROPHILS % (AUTO) 81.3 % (43.0-81.0); PLATELET COUNT (AUTO) 236 /CMM (150-450); WHITE BLOOD COUNT (AUTO) 7.9 K/uL (4.3-11.0)
[2020-10-06 07:33] LABS: CALCIUM, SERUM 9.1 mg/dL (8.5-10.1); CARBON DIOXIDE 23 mmol/L (21-32); CHLORIDE 106 mmol/L (98-107); CREATININE 1.5 mg/dL (0.6-1.3); GLUCOSE 233 mg/dL (74-106); POTASSIUM 3.7 mmol/L (3.5-5.1); SODIUM SERUM 138 mmol/L (136-145); UREA NITROGEN, BLOOD 32 mg/dL (7-18)
[2020-10-06 08:00] VITALS: BP 139/77
[2020-10-06] MEDS: PANTOPRAZOLE 40 MG TABLET.DR PO SCH (08:41)
[2020-10-06] MEDS: CARVEDILOL 3.125 MG TABLET PO SCH ×2 (08:42→16:34)
[2020-10-06] MEDS: AMLODIPINE BESYLATE 5 MG TABLET PO SCH (08:42)
[2020-10-06] MEDS: MEROPENEM 500 MG in IV NS 0.9% 50 ML IV SCH ×2 (08:42→20:51)
[2020-10-06] MEDS: NYSTATIN CREAM 15 GM TUBE TP SCH ×2 (08:44→16:35)
[2020-10-06] MEDS: CLOTRIMAZOLE/BETAMETASONE DIPROPIONATE 15 GM TUBE TP SCH ×2 (08:44→16:35)
[2020-10-06] MEDS: DOXYCYCLINE 100 MG in IV D5W 100 ML IV SCH ×2 (09:14→21:56)
[2020-10-06 16:00] VITALS: BP 122/67
--- NOTE | 2020-10-06 16:04 | NUR ---
MRSA positive nares . Physician notified
--- NOTE | 2020-10-06 19:11 | NUR ---
Patient is awake , oriented x2-3. VS are stable , afebrile all day. Noted with increased appetite. Skin treated with Lotrimin and Nystatin creme .IV fluids running as ordered. Patient kept clean and dry.F/C draining cloudy with sediment. Safety precautions in place All needs attended. Will endorse to next shift for MELVI .
--- NOTE | 2020-10-06 19:45 | NUR ---
tele crosscutter rolled glass initial notes received report from am nurse and seen pti in bed awake and alert watching tv at this time. denies any pain or any discomfort. She has IVF NS at 100 ml/hr infusing at this time on her hand patent and intact. She also has egan to gravity with yellow output noted . no acute distress noted at this time. she also on tele SR at this time. kept her warm and comfortable at all times. will continue monitoring for safety . place call light at reach.
[2020-10-06 20:00] VITALS: BP 148/73
[2020-10-06] MEDS: FLUCONAZOLE IN NS 100 MG in PREMIX 1 EA IV SCH ×2 (21:48)
[2020-10-06] MEDS: MUPIROCIN OINT 2% 22 GM TUBE NS SCH (21:48)
[2020-10-06] MEDS: ENOXAPARIN SODIUM 30 MG/0.3 ML DISP.SYRIN SQ SCH (21:49)
[2020-10-06] MEDS: *INSULIN REGULAR(HUMULIN R)HUM 100 UNIT/ML VIAL SQ PRN (22:00)
--- NOTE | 2020-10-06 22:02 | NUR ---
tele finished metal repairer notes' routine meds given and and blood sugar 194 , 3 units of insulin given renato SQ as ordered. no signs of hypo glycemia noted. snacks also served. will continue monitoring. place call light at reach.
[2020-10-07] VITALS: BP 148/81
--- NOTE | 2020-10-07 | NUR ---
tumbler plater notes pt sleeping comfortably in bed without any distress noted. tele SR per monitor, vital signs stable. kept her warm and comfortable at all times. will continue monitoring. place call light at reach.
[2020-10-07] MEDS: IV NS 0.9% 1,000 ML IV PRN (03:35)
[2020-10-07 04:00] VITALS: BP 150/80
[2020-10-07] MEDS: INSULIN REGULAR, HUMAN 100 UNIT/ML 3 ML VIAL SQ PRN ×2 (06:41→17:49)
[2020-10-07 06:57] LABS: BASOPHILS % (AUTO) 0.3 % (0.0-2.0); EOSINOPHILS % (AUTO) 1.4 % (0.0-6.0); HEMATOCRIT 33 % (33-45); HEMOGLOBIN 10.8 g/dL (11.5-14.8); LYMPHOCYTES # (AUTO) 1.1 /CMM (0.8-4.8); LYMPHOCYTES % (AUTO) 17.4 % (20.0-44.0); MEAN CORPUSCULAR HGB CONC 33 g/dl (31.0-36.0); MEAN CORPUSCULAR VOLUME 83 fL (82-100); MONOCYTES # (AUTO) 0.7 /CMM (0.1-1.30); MONOCYTES % (AUTO) 10.2 % (2.0-12.0); NEUTROPHILS # (AUTO) 4.6 /CMM (1.8-8.9); NEUTROPHILS % (AUTO) 70.7 % (43.0-81.0); PLATELET COUNT (AUTO) 201 /CMM (150-450); RED BLOOD CELL COUNT(AUTO) 3.97 MIL/uL (4.0-5.2); WHITE BLOOD COUNT (AUTO) 6.5 K/uL (4.3-11.0)
--- NOTE | 2020-10-07 07:12 | NUR ---
tele christmas tree farm worker closing notes pt resting at this time after we did morning care . blood sugar checked done 199, 3 units of insulin renato SQ as ordered. no signs of hyper glycemia noted. all due meds given and all needs met. stable throughout the night and slept well. tele SR with PAC's heart rate 73 per monitor. kept her warm and comfortable at all times. bed in low and lock in position with side rails x2 up and bed alarm set for safety. endorse to am nurse Puckett for continuity of care.
[2020-10-07 07:24] LABS: CALCIUM, SERUM 8.4 mg/dL (8.5-10.1); CREATININE 0.7 mg/dL (0.6-1.3); MAGNESIUM 1.8 mg/dL (1.8-2.4); PHOSPHORUS 2.1 mg/dL (2.5-4.9); POTASSIUM 3.5 mmol/L (3.5-5.1)
--- NOTE | 2020-10-07 07:42 | NUR ---
ARC CUTTER PLASMA ARC OPENING NOTES RECEIVED PATIENT IN BED, ASLEEP. PATIENT ON OXYGEN THERAPY AT 2 LPM OF O2; BREATHING IS EVEN AND UNLABORED AT THIS TIME. TELE MONITOR WITH A READING OF SINUS RHYTHM 76 BPM. NO SIGNS OF PAIN SUCH FACIAL GRIMACING, MOANING OR GUARDING. IV ACCESS ON R HAND G#22. JONES CATH DRAINING YELLOW URINE WITH SEDIMENT. SAFETY PRECAUTIONS IN PLACE; BED IN LOW POSITION AND LOCKED, RAILS UPX2, CALL LIGHT WITHIN REACH. WILL CONTINUE TO MONITOR PATIENT.
[2020-10-07] MEDS: BLOOD SUGAR DIAGNOSTIC 1 EACH STRIP VI SCH ×4 (07:49→21:54)
[2020-10-07 08:00] VITALS: BP 131/73
[2020-10-07] MEDS: MEROPENEM 500 MG in IV NS 0.9% 50 ML IV SCH (08:16)
[2020-10-07] MEDS: PANTOPRAZOLE 40 MG TABLET.DR PO SCH (08:16)
[2020-10-07] MEDS: DOXYCYCLINE HYCLATE (100 MG) 100 MG TABLET PO SCH ×2 (08:16→21:54)
[2020-10-07] MEDS: CARVEDILOL 3.125 MG TABLET PO SCH ×2 (08:17→17:05)
[2020-10-07] MEDS: NYSTATIN CREAM 15 GM TUBE TP SCH ×2 (08:17→16:18)
[2020-10-07] MEDS: MUPIROCIN OINT 2% 22 GM TUBE NS SCH ×2 (08:17→22:06)
[2020-10-07] MEDS: CLOTRIMAZOLE/BETAMETASONE DIPROPIONATE 15 GM TUBE TP SCH ×2 (08:18→16:18)
[2020-10-07] MEDS: AMLODIPINE BESYLATE 5 MG TABLET PO SCH (08:35)
--- NOTE | 2020-10-07 12:15 | NUR ---
BENDER HELPER NOTES 1200 ACCU-CHECK WITH A READING OF BS 194. PATIENT REFUSED INSULIN SAYING SHE HAD A BANANA BEFORE SUGAR CHECK AND ITS A GOOD READING AFTER HAVING A BANANA.
[2020-10-07] MEDS: MICAFUNGIN SODIUM 100 MG in IV NS 0.9% 100 ML IV SCH (15:54)
[2020-10-07 16:00] VITALS: BP 135/71
[2020-10-07] MEDS ORDERED: NEUTRA PHOS 1 POWD.PACKET PO ONE (16:30)
--- NOTE | 2020-10-07 18:43 | NUR ---
WAX PATTERN ASSEMBLER CLOSING NOTES PATIENT IN BED, AWAKE, A/O X2 AND WATCHING TV. PATIENT ON OXYGEN THERAPY AT 2 LPM OF O2; BREATHING IS EVEN AND UNLABORED DURING THE SHIFT. TELE MONITOR WITH A READING OF SINUS RHYTHM 75 BPM. NO COMPLAINS OF PAIN DURING THE DAY. IV ACCESS ON R HAND G#22. JONES CATH DRAINING YELLOW URINE WITH SEDIMENT WITH DAILY OUTPUT OF 500 MLS. ALL NEEDS ATTENDED TO THROUGHOUT THE DAY. PATIENT CLEAN AND DRY. SAFETY PRECAUTIONS IN PLACE; BED IN LOW POSITION AND LOCKED, RAILS UPX2, CALL LIGHT WITHIN REACH. WILL ENDORSE TO PROPERTY MAN NURSE.
--- NOTE | 2020-10-07 19:54 | NUR ---
DOOR TO DOOR SELLING DISTRIBUTOR NOTES PATIENT IN BED, AWAKE, ALERT AND ORIENTED X 2-3. MONTENEGRIN SPEAKING. BREATHING EVEN AND UNLABORED ON 2L NC. TELE MONITOR SR. FC WITH YELLOW URINE. IV ON R HAND 22G SL. SHOWS NO SIGNS OF INFILTRATION, NO REDNESS. SAFETY PRECAUTIONS IN PLACE. BED IN LOWEST POSITION, LOCKED, AND CALL LIGHT KEPT WITHIN REACH. WILL CONTINUE TO MONITOR.
[2020-10-07 20:00] VITALS: BP 135/79
[2020-10-07] MEDS ORDERED: FLUCONAZOLE (100 MG) 100 MG TABLET PO SCH (21:00)
[2020-10-07] MEDS: ENOXAPARIN SODIUM 30 MG/0.3 ML DISP.SYRIN SQ SCH (22:04)
[2020-10-07] MEDS: *INSULIN REGULAR(HUMULIN R)HUM 100 UNIT/ML VIAL SQ PRN (22:06)
[2020-10-08] VITALS (7 sets, daily range): BP systolic 128–140; BP diastolic 62–70
[2020-10-08 00:12] LABS: OCCULT BLOOD STOOL NEGATIVE (NEGATIVE)
--- NOTE | 2020-10-08 00:32 | NUR ---
BRAZER RESISTANCE NOTES GAVE BEDSIDE REPORT TO CHILO RN FOR MELVI
--- NOTE | 2020-10-08 00:35 | NUR ---
TELE/RN NOTES RECEIVED BEDSIDE REPORT FROM DEMETRIO ROSSI FOR MELVI.
--- NOTE | 2020-10-08 06:30 | NUR ---
TELE/RN NOTES PATIENT REFUSED TWO UNITS OF INSULIN THIS MORNING. RISK AND BENEFITS EXPLAINED. PATIENT STILL DID NOT WANT INSULIN FOR BS OF 165. WILL CONTINUE TO MONITOR.
[2020-10-08] MEDS: BLOOD SUGAR DIAGNOSTIC 1 EACH STRIP VI SCH ×4 (06:43→21:25)
--- NOTE | 2020-10-08 06:50 | NUR ---
TELE/RN CLOSING NOTES PATIENT IN BED RESTING. PATIENT ALERT AND ORIENTED X 2-3. LAO SPEAKING. BREATHING EVEN AND UNLABORED ON 2L NC TOLERATING WELL. TELE MONITOR SR. FC WITH YELLOW URINE OUT 500CC. IV ON R HAND 22G SL. SHOWS NO SIGNS OF INFILTRATION, NO REDNESS. ALL NEEDS HAVE BEEN MET DURING SHIFT. SAFETY PRECAUTIONS IN PLACE. BED IN LOWEST POSITION, LOCKED, AND CALL LIGHT KEPT WITHIN REACH. WILL ENDORSE CARE TO DAY SHIFT NURSE.
[2020-10-08 06:59] LABS: BASOPHILS % (AUTO) 0.3 % (0.0-2.0); EOSINOPHILS % (AUTO) 3.2 % (0.0-6.0); HEMATOCRIT 36 % (33-45); HEMOGLOBIN 11.7 g/dL (11.5-14.8); LYMPHOCYTES # (AUTO) 1.7 /CMM (0.8-4.8); LYMPHOCYTES % (AUTO) 26.8 % (20.0-44.0); MEAN CORPUSCULAR HGB CONC 33 g/dl (31.0-36.0); MEAN CORPUSCULAR VOLUME 83 fL (82-100); MONOCYTES # (AUTO) 0.5 /CMM (0.1-1.30); MONOCYTES % (AUTO) 8.5 % (2.0-12.0); NEUTROPHILS # (AUTO) 3.9 /CMM (1.8-8.9); NEUTROPHILS % (AUTO) 61.2 % (43.0-81.0); PLATELET COUNT (AUTO) 201 /CMM (150-450); RED BLOOD CELL COUNT(AUTO) 4.31 MIL/uL (4.0-5.2); WHITE BLOOD COUNT (AUTO) 6.3 K/uL (4.3-11.0)
[2020-10-08 07:08] LABS: CALCIUM, SERUM 8.4 mg/dL (8.5-10.1); CREATININE 0.7 mg/dL (0.6-1.3); MAGNESIUM 1.6 mg/dL (1.8-2.4); PHOSPHORUS 2.5 mg/dL (2.5-4.9); POTASSIUM 3.5 mmol/L (3.5-5.1)
[2020-10-08] MEDS: PANTOPRAZOLE 40 MG TABLET.DR PO SCH (07:52)
[2020-10-08] MEDS: MUPIROCIN OINT 2% 22 GM TUBE NS SCH ×2 (10:05→21:16)
[2020-10-08] MEDS: AMLODIPINE BESYLATE 5 MG TABLET PO SCH (10:05)
[2020-10-08] MEDS: NYSTATIN CREAM 15 GM TUBE TP SCH ×2 (10:06→16:53)
[2020-10-08] MEDS: CARVEDILOL 3.125 MG TABLET PO SCH ×2 (10:06→16:53)
[2020-10-08] MEDS: CLOTRIMAZOLE/BETAMETASONE DIPROPIONATE 15 GM TUBE TP SCH ×2 (10:06→16:52)
[2020-10-08] MEDS: Magnesium 1GM/D5W 100ML PREMIX 100 ML IV SCH ×2 (10:07→12:44)
[2020-10-08] MEDS: DOXYCYCLINE HYCLATE (100 MG) 100 MG TABLET PO SCH ×2 (10:10→21:14)
[2020-10-08] MEDS: *INSULIN REGULAR(HUMULIN R)HUM 100 UNIT/ML VIAL SQ PRN ×3 (13:03→21:27)
[2020-10-08] MEDS: MICAFUNGIN SODIUM 100 MG in IV NS 0.9% 100 ML IV SCH (16:56)
--- NOTE | 2020-10-08 19:10 | NUR ---
heel burnisher opening notes received patient awake in bed alert and oriented x3, able to make needs known , respirations even and unlabored with equal rise and fall of chest, denies any pain or discomfort at this time, egan catheter intact and draining, urine yellow, iv site to left wrist #22g intact and patent, no redness, no infiltration present, oriented to staff and call light and kept within reach, low bed and locked, bed ramos offered, fluids provided, on cardiac monitoring sr 73. all needs attended at this time, will continue to monitor and attend to needs.
[2020-10-08] MEDS: ACETAMINOPHEN 325 MG TABLET PO PRN (19:48)
--- NOTE | 2020-10-08 19:49 | NUR ---
rn notes patient complained of headache requested for tylenol. tylenol prn given, will continue to monitor for effectiveness.
[2020-10-08] MEDS: ENOXAPARIN SODIUM 30 MG/0.3 ML DISP.SYRIN SQ SCH (21:15)
[2020-10-09] VITALS: BP 145/73
[2020-10-09 04:00] VITALS: BP 130/63
[2020-10-09] MEDS: INSULIN REGULAR, HUMAN 100 UNIT/ML 3 ML VIAL SQ PRN (06:11)
--- NOTE | 2020-10-09 06:55 | NUR ---
tax associate attorney closing notes patient awake in bed alert and oriented x3, able to make needs known , respirations even and unlabored with equal rise and fall of chest, denies any pain or discomfort at this time, egan catheter intact and draining, urine yellow, iv site to left wrist #22g intact and patent, no redness, no infiltration present, call light kept within reach, low bed and locked, bed ramos offered,skin care provided as ordered, fluids provided, on cardiac monitoring sr 67. all needs attended at this time, will continue to monitor and attend to needs and endorse to next shift.
--- NOTE | 2020-10-09 07:40 | NUR ---
RN OPENING NOTE THE PATIENT IS RECEIVED IN BED. PATIENT IS ALERT AND ORIENTED X3. RECEIVING OXYGEN AT 2L/MIN VIA NASAL CANNULA AND DENIES SOB. RESPIRATION REGULAR AND UNLABORED. DENIES PAIN. THE PATIENT IS IN NO APPARENT DISTRESS. TELE BOX READING IS SR 69. JONES CATH IS PRESENT. NO BLADDER DISTENSION NOTED. LEFT WRIST G 22 PATENT AND SALINE LOCKED. BED LOW AND LOCKED. SIDE RAILS UP X3. CALL LIGHT WITHIN REACH. WILL CONTINUE TO MONITOR.
[2020-10-09] MEDS: PANTOPRAZOLE 40 MG TABLET.DR PO SCH (08:11)
[2020-10-09] MEDS: AMLODIPINE BESYLATE 5 MG TABLET PO SCH (08:11)
[2020-10-09] MEDS: BLOOD SUGAR DIAGNOSTIC 1 EACH STRIP VI SCH ×2 (08:12→12:00)
[2020-10-09] MEDS: DOXYCYCLINE HYCLATE (100 MG) 100 MG TABLET PO SCH (08:12)
[2020-10-09] MEDS: CARVEDILOL 3.125 MG TABLET PO SCH (08:12)
[2020-10-09] MEDS: MUPIROCIN OINT 2% 22 GM TUBE NS SCH (08:15)
[2020-10-09] MEDS: NYSTATIN CREAM 15 GM TUBE TP SCH (08:15)
[2020-10-09] MEDS: CLOTRIMAZOLE/BETAMETASONE DIPROPIONATE 15 GM TUBE TP SCH (08:16)
[2020-10-09 10:30] VITALS: BP 131/75
[2020-10-09] MEDS ORDERED: HOME MED MISCELLANEOUS XX SCH ×2 (10:30)
[2020-10-09] MEDS ORDERED: VALSARTAN 80 MG TABLET PO SCH (10:30)
--- NOTE | 2020-10-09 11:47 | NUR ---
RN REFUSED MEDICATION THE PATIENT REFUSED DIVAN 80 MG DESPITE EXPLAINING RISKS AND BENEFITS.
--- NOTE | 2020-10-09 13:20 | NUR ---
RN REFUSED BLOOD SUGAR CHECK THE PATIENT REFUSED BLOOD SUGAR CHECK DUE AT 1200. EXPLAINED RISKS AND BENEFITS BUT THE PATIENT STILL REFUSED.
--- NOTE | 2020-10-09 15:21 | NUR ---
RN CLOSING NOTE THE PATIENT REFUSED DISCHARGE SKIN ASSESSMENT AND PICTURES TO BE TAKEN DESPITE EXPLAINING RISKS AND BENEFITS.
--- NOTE | 2020-10-09 15:22 | NUR ---
RN CLOSING NOTE THE PATIENT ALERT AND ORIENTED X3. IN ROOM AIR AND OXYGEN SATURATION IS AT 97%. DENIES SOB. RESPIRATION REGULAR AND UNLABORED. DENIES PAIN. LEFT WRIST G 22 IV LINE REMOVED AND NO BLEEDING NOTED. JONES CATH PRESENT. NO BLADDER DISTENSION NOTED. DISCHARGE EDUCATION PROVIDED TO THE PATIENT AND SHE VERBALIZED UNDERSTANDING. REPORT GIVEN TO THE RECEIVING NURSE FATUMA. THE PATIENT LEAVING THE FACILITY IN STABLE CONDITION VIA AMBULANCE.
[2020-10-10 12:06] LABS: *SPE A/G RATIO 0.6 (0.7-1.7); *SPE ALPHA-1-GLOBULIN 0.3 g/dL (0.0-0.4); *SPE ALPHA-2-GLOBULIN 1.1 g/dL (0.4-1.0); *SPE BETA GLOBULIN 0.7 g/dL (0.7-1.3); *SPE GLOBULIN, TOTAL 3.1 g/dL (2.2-3.9); *SPE M-SPIKE Not Observed g/dL (Not Observed); *SPEGAMMA GLOBULIN 0.9 g/dL (0.4-1.8)
== END 2020-10-09 15:30 | DRG 871 ==
LOC: ER 19:40 → TELE2 22:09 → TELE 10-06 02:05
PROVIDERS: ADMIT Student in an Organized Health Care Education/Training Program; ATTEND Nurse Practitioner Acute Care
DX: B37.7 Candidal sepsis (principal); G92 Toxic encephalopathy; N17.0 Acute kidney failure with tubular necrosis; D68.69 Other thrombophilia; E87.1 Hypo-osmolality and hyponatremia; E87.2 Acidosis; B37.49 Other urogenital candidiasis; I10 Essential (primary) hypertension; D64.9 Anemia, unspecified; E07.9 Disorder of thyroid, unspecified; E78.5 Hyperlipidemia, unspecified; E83.52 Hypercalcemia; E86.0 Dehydration; E86.1 Hypovolemia; F03.90 Unspecified dementia, unspecified severity, without behavioral disturbance, psychotic disturbance, mood disturbance, and anxiety; E11.65 Type 2 diabetes mellitus with hyperglycemia; B37.3 Candidiasis of vulva and vagina; Z74.01 Bed confinement status; Z79.4 Long term (current) use of insulin; Z90.710 Acquired absence of both cervix and uterus; Z86.19 Personal history of other infectious and parasitic diseases; E66.9 Obesity, unspecified; Z68.24 Body mass index [BMI] 24.0-24.9, adult; Z22.322 Carrier or suspected carrier of Methicillin resistant Staphylococcus aureus; K74.60 Unspecified cirrhosis of liver
CPT/HCPCS: 36415; 71045-TC; 80048-TC; 80061-TC; 80076-TC; 81001; 82140-TC; 82272-TC; 82962-TC; 83605-TC; 83735-TC; 84100-TC; 84155; 84165; 84443-TC; 84484-TC; 85025-TC; 85730-TC; 87040-TC; 87081-TC; 87086-TC; 92526; 92611-TC; 93307-TC; 97112-TC; 97530-TC; A4216; C9803; G0378; J0696; J1450; J1650; J1815; J2185; J2248; J3370; J3475; J3490; J7030; J7040; J7060; U0003

== ENCOUNTER 2020-11-16 17:02 | Emergency (ER) | payer MEDICARE ==
[~2020-11-16] VITALS: Ht 170.2 cm; Wt 90.3 kg
[~2020-11-16 17:02] MED LIST changes: -CIPR-262 PO; -METR500T PO
--- NOTE | 2020-11-16 17:21 | NUR ---
[id number] HOME FOR R FLANK PAIN X 2 DAYS. F/C NOTED PLACED 1 WEEK AGO FOR URINARY RETENTION. FREQUENT UTI ENDORSED.TO ER BED 11, HOOKED TO MONITOR, CHANGED TO HOSP GOWN, WARM BLANKET PROVIDED, PATIENT AAO x 4. BREATHING EVEN AND UNLABORED. AWAITING MD VELÁSQUEZ
--- NOTE | 2020-11-16 17:40 | NUR ---
DR CATHERINE AT BEDSIDE
[2020-11-16 18:24] LABS: BASOPHILS # (AUTO) 0.1 /CMM (0.0-0.2); BASOPHILS % (AUTO) 1.3 % (0.0-2.0); EOSINOPHILS % (AUTO) 5.7 % (0.0-6.0); HEMATOCRIT 41 % (33-45); HEMOGLOBIN 13.6 g/dL (11.5-14.8); LYMPHOCYTES # (AUTO) 2.5 /CMM (0.8-4.8); LYMPHOCYTES % (AUTO) 25.9 % (20.0-44.0); MEAN CORPUSCULAR HGB CONC 33 g/dl (31.0-36.0); MEAN CORPUSCULAR VOLUME 85 fL (82-100); MONOCYTES # (AUTO) 0.7 /CMM (0.1-1.30); MONOCYTES % (AUTO) 6.9 % (2.0-12.0); NEUTROPHILS # (AUTO) 5.7 /CMM (1.8-8.9); NEUTROPHILS % (AUTO) 60.2 % (43.0-81.0); PLATELET COUNT (AUTO) 202 /CMM (150-450); RED BLOOD CELL COUNT(AUTO) 4.83 MIL/uL (4.0-5.2); WHITE BLOOD COUNT (AUTO) 9.5 K/uL (4.3-11.0)
[2020-11-16 18:31] LABS: CALCIUM, SERUM 10.3 mg/dL (8.5-10.1); CREATININE 0.8 mg/dL (0.6-1.3); POTASSIUM 3.7 mmol/L (3.5-5.1)
[2020-11-16 18:37] LABS: ALBUMIN 3.4 g/dL (3.4-5.0); BILIRUBIN,DIRECT 0.2 mg/dL (0.0-0.2); BILIRUBIN,TOTAL 0.3 mg/dL (0.2-1.0); TOTAL PROTEIN, SERUM 7.3 g/dL (6.4-8.2)
[2020-11-16] MEDS ORDERED: CT SWABBABLE VALVE TRANS SET 1 EA INFUS.SET MC ONE (18:41)
[2020-11-16] MEDS ORDERED: IOHEXOL-300 100 ML VIAL IV ONE (18:41)
[2020-11-16] MEDS ORDERED: IV NS 0.9% 250 ML IV ONE (18:41)
--- NOTE | 2020-11-16 18:54 | NUR ---
URINE SAMPLE COLLECTED FROM JONES CATHETER, SENT TO LAB
--- NOTE | 2020-11-16 19:00 | NUR ---
PICKED UP BY ANAMARIA NUÑEZ VIA [facility] FOR CT SCAN
--- NOTE | 2020-11-16 19:10 | NUR ---
patient back to room from ct scan
--- NOTE | 2020-11-16 19:33 | NUR ---
REPORT GIVEN TO CHRISTIANO ATKINSON FOR MELVI
--- NOTE | 2020-11-16 19:59 | NUR ---
TOOK OVER PT CARE. PT DENIES PAIN, AWAITING FOR RESULTS.
[2020-11-16 20:03] LABS: BILIRUBIN,URINE NEGATIVE (NEGATIVE); COLOR,URINE YELLOW (YELLOW); LEUKOCYTE ESTERASE ,URINE SMALL (NEGATIVE); NITRITE, URINE POSITIVE (NEGATIVE); PROTEIN,URINE 100 mg/dl (NEGATIVE); UGLUCOSE >=1000 mg/dL (NEGATIVE); UROBILINOGEN,URINE 0.2 EU/dL (0.2)
[2020-11-16 20:20] LABS: BACTERIA,URINE 2+ /HPF (None Seen); SQUAMOUS EPITHELIAL CELL,UR Few /HPF (None Seen); WBC,URINE TOO NUMEROUS TO COUN /HPF (0-3)
[2020-11-16] MEDS ORDERED: CEFTRIAXONE 1GM BAG (ER ONLY) 50 ML IV ONE (20:52)
[2020-11-16] MEDS ORDERED: CEFTRIAXONE 1GM BAG (ER ONLY) 1 GM/50 ML PIGGYBACK IV ONE (21:00)
--- NOTE | 2020-11-16 21:11 | NUR ---
[facility] ETA 2179
--- NOTE | 2020-11-16 21:43 | NUR ---
PT PROVIDED WITH A NEW JONES.
--- NOTE | 2020-11-16 22:10 | NUR ---
PT DISCHARGED, I SPOKE TO THE SON REGARDING DISCHARGE PAPERS AND RX. PT AWARE WELL. VSS. PICKED UP BY AMBULANCE AND TRANSFERED HOME.
[2020-11-16 22:37] VITALS: BP 126/81
== END 2020-11-16 22:38 | disposition home or self-care (01) ==
LOC: ER 17:05
DX: N39.0 Urinary tract infection, site not specified (principal); I10 Essential (primary) hypertension; E11.9 Type 2 diabetes mellitus without complications; Z90.710 Acquired absence of both cervix and uterus; Z79.899 Other long term (current) drug therapy
CPT/HCPCS: 36415; 51702; 74177; 80048; 80076; 81001; 83690; 85025; 87086; 96365; 99285; J0696; J7050; Q9967

== ENCOUNTER 2020-12-06 13:26 | Emergency (ER) | payer MEDICARE ==
[~2020-12-06] VITALS: Ht 167.6 cm; Wt 83.9 kg
--- NOTE | 2020-12-06 13:30 | NUR ---
bibra c/o r hip pain 03/20 x 4days, took tramadol this am with relief. denies any fall or injury, to ER bed 9, hooked to BP cuff and POX. changed to hosp gown, warm blanket provided, patient AAO x 3, breathing even and unlabored. NAD noted. awaiting MD hannah.
--- NOTE | 2020-12-06 14:15 | NUR ---
ELECTRONIC DIE MAKER AT BEDSIDE
--- NOTE | 2020-12-06 14:25 | NUR ---
Angela abdul in [facility] - 12/06/20 at 1425 by RITA Patient discharged to home in stable condition. Written and verbal after care instructions given. Patient verbalizes understanding of instruction.
--- NOTE | 2020-12-06 15:17 | NUR ---
CALLED TRANSPORT ETA IS 1730 AM [facility].
--- NOTE | 2020-12-06 16:25 | NUR ---
JONES CATHETER CHANGED REQUESTED BY THE PATIENT
--- NOTE | 2020-12-06 17:43 | NUR ---
PATIENT PICKED UP BY [facility] IN STABLE CONDITION. PATIENT WILL BE BROUGHT HOME. SON IS WAITING FOR PATIENT. Written and verbal after care instructions given. Patient verbalizes understanding of instruction.
[2020-12-06 17:45] VITALS: BP 127/76
== END 2020-12-06 17:46 | disposition home or self-care (01) ==
LOC: ER 13:29
DX: S76.011A Strain of muscle, fascia and tendon of right hip, initial encounter (principal); I10 Essential (primary) hypertension; E11.9 Type 2 diabetes mellitus without complications; Z79.899 Other long term (current) drug therapy; X58.XXXA Exposure to other specified factors, initial encounter; Y93.89 Activity, other specified; Y92.89 Other specified places as the place of occurrence of the external cause; Y99.8 Other external cause status
CPT/HCPCS: 73502

== ENCOUNTER 2021-04-26 13:18 | Inpatient (IN) | payer BC, MEDICARE ==
[~2021-04-26] VITALS: Ht 170.2 cm; Wt 73.0 kg
--- NOTE | 2021-04-26 13:45 | NUR ---
REINSERTED NEW JONES CATH AND HEMATURIA NOTED. URINE SAMPLE SENT TO LAB.
--- NOTE | 2021-04-26 13:52 | NUR ---
[id number]. PT COMPLAINS OF BLADDER PAIN AND HEMATURIA IN THE JONES CATHETER. A/O X4. STABLE ON ROOM AIR. NO SOB OR ANY DISTRESS. PAIN SCALE OF 6/10. JONES CATH IN PLACE. AT BEDSIDE FOR EVAL.
[2021-04-26 13:54] LABS: BASOPHILS # (AUTO) 0.1 /CMM (0.0-0.2); BASOPHILS % (AUTO) 0.7 % (0.0-2.0); EOSINOPHILS % (AUTO) 3.4 % (0.0-6.0); HEMATOCRIT 39 % (33-45); HEMOGLOBIN 12.7 g/dL (11.5-14.8); LYMPHOCYTES % (AUTO) 22.1 % (20.0-44.0); MEAN CORPUSCULAR HGB CONC 33 g/dl (31.0-36.0); MEAN CORPUSCULAR VOLUME 84 fL (82-100); MONOCYTES # (AUTO) 0.5 /CMM (0.1-1.30); MONOCYTES % (AUTO) 5.8 % (2.0-12.0); PLATELET COUNT (AUTO) 194 /CMM (150-450); WHITE BLOOD COUNT (AUTO) 8.8 K/uL (4.3-11.0)
[2021-04-26 14:02] LABS: CREATININE 0.7 mg/dL (0.6-1.3); POTASSIUM 3.9 mmol/L (3.5-5.1)
[2021-04-26 14:07] LABS: CALCIUM, SERUM 9.5 mg/dL (8.5-10.1)
[2021-04-26] MEDS ORDERED: CEFTRIAXONE 1GM BAG (ER ONLY) 1 GM/50 ML PIGGYBACK IV ONE (14:30)
[2021-04-26] MEDS ORDERED: IV NS 0.9% 1,000 ML BAG IV ONE ×2 (14:30→16:30)
[2021-04-26] MEDS ORDERED: CEFTRIAXONE 1GM BAG (ER ONLY) 50 ML IV ONE (14:42)
--- NOTE | 2021-04-26 14:47 | NUR ---
ROCEPHIN STARTED AFTER BLOOD CULTURE WAS TAKEN.
[2021-04-26 14:51] LABS: BILIRUBIN,URINE MODERATE (NEGATIVE); COLOR,URINE RED (YELLOW); LEUKOCYTE ESTERASE ,URINE Large (NEGATIVE); NITRITE, URINE Positive (NEGATIVE); PH,URINE 5.5 (5.0-8.0); PROTEIN,URINE >=300 mg/dl (NEGATIVE); UGLUCOSE 100 MG/DL mg/dL (NEGATIVE)
[2021-04-26 14:53] LABS: BACTERIA,URINE 1+ /HPF (None Seen); RBC,URINE 21-50 /HPF (0-2); WBC,URINE 21-50 /HPF (0-3)
[2021-04-26 14:54] LABS: HYALINE CASTS, URINE Few /LPF (None Seen)
[2021-04-26] MEDS ORDERED: LABE100T5 PO (16:13)
[2021-04-26] MEDS ORDERED: CARV3.12 PO (16:13)
[2021-04-26] MEDS ORDERED: KETOROLAC TROMETHAMINE INJ 30 MG/ML VIAL IV ONE (16:30)
[2021-04-26] MEDS ORDERED: MAG HYDROX/AL HYDROX/SIMETH 30 ML UDC PO PRN (16:30)
[2021-04-26] MEDS ORDERED: ACETAMINOPHEN 325 MG TABLET PO PRN (16:30)
[2021-04-26] MEDS ORDERED: DEXTROSE 50%-WATER 50 ML DISP.SYRIN IV PRN (16:30)
[2021-04-26] MEDS ORDERED: Z GUARD REMEDY 2 OZ OINT TP PRN (16:30)
[2021-04-26] MEDS ORDERED: ZOLPIDEM TARTRATE 5 MG TABLET PO PRN (16:30)
[2021-04-26] MEDS ORDERED: MAGNESIUM HYDROXIDE 30 ML UDC PO PRN (16:30)
[2021-04-26] MEDS ORDERED: ONDANSETRON HCL/PF 4 MG/2 ML VIAL IVP PRN (16:30)
--- NOTE | 2021-04-26 17:07 | NUR ---
COVID NEGATIVE PER LAB
[2021-04-26 17:30] LABS: BILIRUBIN,DIRECT 0.1 mg/dL (0.0-0.2); BILIRUBIN,TOTAL 0.1 mg/dL (0.2-1.0)
[2021-04-26] MEDS: BLOOD SUGAR DIAGNOSTIC 1 EACH STRIP IN SCH ×2 (17:30→22:22)
--- NOTE | 2021-04-26 17:53 | NUR ---
BED 327-1
--- NOTE | 2021-04-26 18:23 | NUR ---
REPORT GIVEN TO NURSE BURLESON
--- NOTE | 2021-04-26 18:36 | NUR ---
ms rn received a new admission, 75 year old female,awake,alert,oriented x4,not in any form of distress, respirations even and unlabored,no sob noted, came in w/ dx of sepsis, egan catheter intact w/ reddish urine output, denies pain at this time, will monitor patient.
--- NOTE | 2021-04-26 19:00 | NUR ---
RN OPENING/ADMITTING NOTE RECEIVED REPORT FROM THE MORNING SHIFT DEMETRIO [id number]. PT ABLE TO COMMUNICATE NEEDS. NO SOB NOTED, NO C/O PAIN AT THIS TIME, NO S/S OF ANY APPARENT DISTRESS NOTED. RESPIRATIONS EVEN AND UNLABORED, ACTIVE BOWEL SOUNDS AUSCULTATED THROUGHOUT, ABDOMEN IS NON DISTENDED. SKIN IS INTACT, REDNESS ON THE SACRUM NOTED, WARM TO TOUCH. CAPILLARY REFILL < 3SECS, PULSES PRESENT BILATERALLY, GOOD CIRCULATION NOTED. IV ACCESS NOTED IN RH G#20, INTACT, PATENT AND FLUSHING WELL. PT'S BELONGINGS ACCOUNTED FOR, AND KEPT AT PT'S BEDSIDE PER PT REQUEST. ASPIRATION AND SAFETY PRECAUTIONS IN PLACE AND MAINTAINED AT ALL TIMES. BED IN LOWEST LOCKED POSITION, SIDE RAILS UPX2, TABLE AND CALL LIGHT WITHIN REACH. WILL CONTINUE PLAN OF CARE Addendum: 04/26/21 at 2357 by LOLIS NICKERSON RN RN OPENING/ADMITTING NOTE RECEIVED REPORT FROM THE MORNING SHIFT DEMETRIO [id number]. PT ABLE TO COMMUNICATE NEEDS. NO SOB NOTED, NO C/O PAIN AT THIS TIME, NO S/S OF ANY APPARENT DISTRESS NOTED. RESPIRATIONS EVEN AND UNLABORED, ACTIVE BOWEL SOUNDS AUSCULTATED THROUGHOUT, ABDOMEN IS NON DISTENDED. SKIN IS INTACT, REDNESS ON THE SACRUM NOTED, WARM TO TOUCH. CAPILLARY REFILL < 3SECS, PULSES PRESENT BILATERALLY, GOOD CIRCULATION NOTED. IV ACCESS NOTED IN RH G#20, INTACT, PATENT AND FLUSHING WELL. JONES CATHETER IN PLACE DRAINING CLEAR YELLOW/ PINK URINE. PT'S BELONGINGS ACCOUNTED FOR, AND KEPT AT PT'S BEDSIDE PER PT REQUEST. ASPIRATION AND SAFETY PRECAUTIONS IN PLACE AND MAINTAINED AT ALL TIMES. BED IN LOWEST LOCKED POSITION, SIDE RAILS UPX2, TABLE AND CALL LIGHT WITHIN REACH. WILL CONTINUE PLAN OF CARE
[2021-04-26] MEDS: CARVEDILOL 3.125 MG TABLET PO SCH (19:06)
[2021-04-26] MEDS: HYDROCODONE/APAP 5/325MG TABLET PO PRN (19:07)
[2021-04-26] MEDS: LABETALOL HCL (100MG) 100 MG TABLET PO SCH (19:07)
--- NOTE | 2021-04-26 19:16 | NUR ---
ms rn eating dinner, due meds given,tolerated well. will endorse to linseed oil refiner for admission.
[2021-04-26] MEDS: IV NS 0.9% 1,000 ML IV PRN (20:16)
[2021-04-26] MEDS: VANCOMYCIN HCL 0.75 GM in IV D5W 250 ML IV SCH (20:26)
[2021-04-26] MEDS ORDERED: MEROPENEM 1 G in IV NS 0.9% 100 ML IV SCH (21:00)
[2021-04-26] MEDS: MEROPENEM 1 G in IV NS 0.9% 100 ML IV SCH (21:00)
[2021-04-26] MEDS: INSULIN REGULAR, HUMAN 100 UNIT/ML 3 ML VIAL SQ PRN (21:04)
--- NOTE | 2021-04-26 21:04 | NUR ---
BS 209 Addendum: 04/27/21 at 0327 by LOLIS NICKERSON RN BS 209. INSULIN COVERAGE OF 4 UNITS ADMINISTERED
[2021-04-27] VITALS: BP 137/69
[2021-04-27 04:00] VITALS: BP 139/77
[2021-04-27] MEDS: MEROPENEM 1 G in IV NS 0.9% 100 ML IV SCH ×3 (04:27→21:12)
[2021-04-27] MEDS: VANCOMYCIN HCL 0.75 GM in IV D5W 250 ML IV SCH ×2 (06:21→19:05)
[2021-04-27 06:39] LABS: CALCIUM, SERUM 8.8 mg/dL (8.5-10.1); CREATININE 0.7 mg/dL (0.6-1.3); MAGNESIUM 1.5 mg/dL (1.8-2.4); PHOSPHORUS 3.4 mg/dL (2.5-4.9); POTASSIUM 3.9 mmol/L (3.5-5.1)
[2021-04-27] MEDS: BLOOD SUGAR DIAGNOSTIC 1 EACH STRIP IN SCH ×4 (06:48→22:39)
[2021-04-27 06:54] LABS: THYROID STIMULATING HORMONE 0.656 uIU/mL (0.358-3.74)
[2021-04-27 07:07] LABS: BASOPHILS # (AUTO) 0.1 /CMM (0.0-0.2); BASOPHILS % (AUTO) 0.6 % (0.0-2.0); EOSINOPHILS % (AUTO) 4.6 % (0.0-6.0); HEMATOCRIT 36 % (33-45); HEMOGLOBIN 11.7 g/dL (11.5-14.8); LYMPHOCYTES # (AUTO) 2.2 /CMM (0.8-4.8); LYMPHOCYTES % (AUTO) 24.2 % (20.0-44.0); MEAN CORPUSCULAR HGB CONC 32 g/dl (31.0-36.0); MEAN CORPUSCULAR VOLUME 85 fL (82-100); MONOCYTES # (AUTO) 0.6 /CMM (0.1-1.30); MONOCYTES % (AUTO) 7.2 % (2.0-12.0); NEUTROPHILS # (AUTO) 5.7 /CMM (1.8-8.9); NEUTROPHILS % (AUTO) 63.4 % (43.0-81.0); PLATELET COUNT (AUTO) 177 /CMM (150-450); RED BLOOD CELL COUNT(AUTO) 4.25 MIL/uL (4.0-5.2); WHITE BLOOD COUNT (AUTO) 8.9 K/uL (4.3-11.0)
--- NOTE | 2021-04-27 07:20 | NUR ---
ms rn received on bed, awake,alert,oriented x4,respirations even and unlabored,no sob noted, lungs are clear,abdomen soft,positive bowel sounds,denies pain at this time,will monitor patient.
[2021-04-27 08:00] VITALS: BP 118/74
--- NOTE | 2021-04-27 09:30 | NUR ---
ms sandoval breakfast served,due meds given, tolerated well.
[2021-04-27] MEDS: LABETALOL HCL (100MG) 100 MG TABLET PO SCH ×2 (09:45→16:22)
[2021-04-27] MEDS: CARVEDILOL 3.125 MG TABLET PO SCH ×2 (09:45→16:22)
[2021-04-27] MEDS: METFORMIN 500 MG TABLET PO SCH ×2 (09:45→16:22)
--- NOTE | 2021-04-27 11:00 | NUR ---
ms rn was seen by mil menendez w/ orders made and carried out.
[2021-04-27 12:00] VITALS: BP 124/77
[2021-04-27] MEDS: INSULIN REGULAR, HUMAN 100 UNIT/ML 3 ML VIAL SQ PRN ×2 (12:10→21:32)
[2021-04-27] MEDS: Magnesium 1GM/D5W 100ML PREMIX 100 ML IV SCH ×2 (12:11→13:09)
[2021-04-27 16:00] VITALS: BP 106/68
--- NOTE | 2021-04-27 16:00 | NUR ---
ms rn was seen by ricardo menendez w/ diane to get info of pt's pet scan done in [facility]. waiver singed and faxed.
--- NOTE | 2021-04-27 18:00 | NUR ---
ms rn on bed, no distress noted,all needs attended.
--- NOTE | 2021-04-27 20:00 | NUR ---
RN OPENING NOTE RECEIVED PT AWAKE IN BED.A/OX4,SR 86 PVC. PT IS ON RA. NO SOB NOTED. NO S/S OF RESPIRATORY DISTRESS. PT IS BED REST. SKIN IS INTACT. PT HAS NO C/O PAIN AT THIS TIME. IV ACCESS IN RH G#20, INTACT, PATENT AND FLUSHING WELL. BEDSIDE COMMODE IN PLACE. SAFETY MEASURES MAINTAINED. BED IN LOWEST LOCKED POSITION, HOB ELEVATED, SIDE RAILS UP X2. CALL LIGHT AND TABLE WITHIN REACH. WILL CONTINUE WITH PLAN OF CARE.
[2021-04-27 20:08] VITALS: BP 119/61
[2021-04-27] MEDS ORDERED: diphenhydrAMINE HCL 25 MG CAPSULE PO ONE (22:30)
[2021-04-28 00:14] VITALS: BP 120/68
[2021-04-28] MEDS: IV NS 0.9% 1,000 ML IV PRN (02:10)
[2021-04-28 04:21] VITALS: BP 145/74
[2021-04-28] MEDS: MEROPENEM 1 G in IV NS 0.9% 100 ML IV SCH ×3 (04:44→20:39)
--- NOTE | 2021-04-28 06:07 | NUR ---
HOSPITAL LABORATORY TECHNICIAN CLOSING NOTE PT IS AWAKE IN BED, EASY TO AROUSE.A/OX4. PT IS STABLE ON RA. NO SOB NOTED, NO S/S OF RESPIRATORY DISTRESS. PT IS BED REST. IV ACCESS IS INTACT, PATENT, AND FLUSHING WELL. ALL NEEDS HAVE BEEN MET. ALL CARE, NEEDS, MEDICATIONS, AND TREATMENT ADMINISTERED ANTICIPATED PER ORDER. PAIN MANAGEMENT AND . PT REPOSITIONED Q2H AND PRN. SAFETY AND ASPIRATION PRECAUTIONS MAINTAINED AT ALL TIMES. BED IN LOWEST LOCKED POSITION, HOB ELEVATED, SIDE RAILS UPX2. CALL LIGHT AND TABLE WITHIN REACH. WILL ENDORSE TO ONCOMING NURSE FOR MELVI.
[2021-04-28 06:31] LABS: BASOPHILS # (AUTO) 0.1 /CMM (0.0-0.2); BASOPHILS % (AUTO) 0.8 % (0.0-2.0); EOSINOPHILS % (AUTO) 5.1 % (0.0-6.0); HEMATOCRIT 37 % (33-45); HEMOGLOBIN 12.2 g/dL (11.5-14.8); LYMPHOCYTES % (AUTO) 24.6 % (20.0-44.0); MEAN CORPUSCULAR HGB CONC 33 g/dl (31.0-36.0); MEAN CORPUSCULAR VOLUME 84 fL (82-100); MONOCYTES # (AUTO) 0.6 /CMM (0.1-1.30); MONOCYTES % (AUTO) 7.2 % (2.0-12.0); NEUTROPHILS # (AUTO) 5.1 /CMM (1.8-8.9); NEUTROPHILS % (AUTO) 62.3 % (43.0-81.0); PLATELET COUNT (AUTO) 189 /CMM (150-450); RED BLOOD CELL COUNT(AUTO) 4.42 MIL/uL (4.0-5.2); WHITE BLOOD COUNT (AUTO) 8.2 K/uL (4.3-11.0)
[2021-04-28 07:17] LABS: ALBUMIN 2.5 g/dL (3.4-5.0); BILIRUBIN,TOTAL 0.3 mg/dL (0.2-1.0); CALCIUM, SERUM 8.9 mg/dL (8.5-10.1); CREATININE 0.7 mg/dL (0.6-1.3); MAGNESIUM 1.6 mg/dL (1.8-2.4); PHOSPHORUS 3.4 mg/dL (2.5-4.9); POTASSIUM 4.1 mmol/L (3.5-5.1)
--- NOTE | 2021-04-28 07:25 | NUR ---
DECK WORKER OPENING NOTE RECEIVED PT AWAKE IN BED. PATIENT IS A/OX4 PATIENT IS BREATHING EVENLY AND NONLABORED ON RA. NO SOB NOTED. NO S/S OF RESPIRATORY DISTRESS. PATIENT ON TELE MONITOR SHOWING SR 86 WITH PVC. PT HAS NO C/O PAIN AT THIS TIME. IV ACCESS IN RH G#20, INTACT, PATENT AND FLUSHING WELL. BEDSIDE COMMODE IN PLACE. SAFETY MEASURES MAINTAINED. BED IN LOWEST LOCKED POSITION, HOB ELEVATED, SIDE RAILS UP X2. CALL LIGHT AND TABLE WITHIN REACH. WILL CONTINUE TO MONITOR
[2021-04-28] MEDS: BLOOD SUGAR DIAGNOSTIC 1 EACH STRIP IN SCH ×4 (07:27→21:42)
[2021-04-28] MEDS: VANCOMYCIN HCL 0.75 GM in IV D5W 250 ML IV SCH ×2 (07:39→18:06)
[2021-04-28 08:00] VITALS: BP 131/58
[2021-04-28] MEDS: LABETALOL HCL (100MG) 100 MG TABLET PO SCH ×2 (08:25→16:47)
[2021-04-28] MEDS: METFORMIN 500 MG TABLET PO SCH ×2 (08:25→16:47)
[2021-04-28] MEDS: CARVEDILOL 3.125 MG TABLET PO SCH ×2 (08:25→16:46)
--- NOTE | 2021-04-28 09:41 | NUR ---
RN NOTE PATIENT SEEN BY WOUND CARE NURSE FOR REDNESS OF THE SACRUM. LOTRIMIN ORDERED WILL CONTINUE TO MONITOR
--- NOTE | 2021-04-28 09:45 | NUR ---
WOUND CARE CONSULT: PT PRESENTS WITH RASH TO BUTTOCKS, PRESENT ON ADMISSION. RECOMMENDATIONS MADE FOR SKIN PROTECTION. DISCUSSED WITH NURSING STAFF. ROBERT CHAMBERS. IN AGREEMENT WITH PLAN OF CARE. Addendum: 04/28/21 at 0945 by BELEN JIMENES WNDNU Amended: Links added.
[2021-04-28] MEDS: INSULIN REGULAR, HUMAN 100 UNIT/ML 3 ML VIAL SQ PRN ×2 (11:28→17:14)
--- NOTE | 2021-04-28 11:30 | NUR ---
RN NOTE PATIENT'S BLOOD GLUCOSE 119. NO INSULIN GIVEN WILL CONTINUE TO MONITOR
[2021-04-28] MEDS: Magnesium 1GM/D5W 100ML PREMIX 100 ML IV SCH ×2 (11:32→12:33)
--- NOTE | 2021-04-28 14:03 | NUR ---
RN NOTE PATIENT ASKED FOR MEDICATION FOR CONSTIPATION. WILL GIVEN PRN CONSTIPATION MEDICATION. WILL CONTINUE TO MONITOR
--- NOTE | 2021-04-28 16:05 | NUR ---
RN NOTE PATIENT COMPLAINED OF REDNESS NEAR THE R WRIST IV SITE. UPON FURTHER INVESTIGATION, SITE WAS HARD AND WARM. IV WAS DISCONNECTED AND REMOVED. ICE WAS PLACE, ARM ELEVATED. PATIENT ALSO COMPLAINED OF LEFT ARM PAIN. MD NOTIFIED WITH NEW ORDER FOR LEFT ARM XRAY. WILL CONTINUE TO MONITOR
[2021-04-28] MEDS: CLOTRIMAZOLE 1% 15 GM TUBE TP SCH (16:47)
--- NOTE | 2021-04-28 18:44 | NUR ---
SPRINKLER FITTER OPENING NOTE PT AWAKE IN BED. PATIENT IS A/OX4 PATIENT IS BREATHING EVENLY AND NONLABORED ON RA. NO SOB NOTED. NO S/S OF RESPIRATORY DISTRESS. PATIENT ON TELE MONITOR SHOWING SR 86 WITH PVC. PT HAS NO C/O PAIN AT THIS TIME. IV ACCESS ON LEFT UPPER ARM, MIDLINE 18 GAUGE, INTACT, PATENT AND FLUSHING WELL, IV MEDICATION VANCOMYCIN RUNNING. BEDSIDE COMMODE IN PLACE. SAFETY MEASURES MAINTAINED. BED IN LOWEST LOCKED POSITION, HOB ELEVATED, SIDE RAILS UP X2. CALL LIGHT AND TABLE WITHIN REACH. WILL ENDORSE TO ONCOMING SHIFT Addendum: 04/28/21 at 1844 by PREM BERRY RN CLOSING NOTE
--- NOTE | 2021-04-28 19:29 | NUR ---
HIGH LIGHTER NOTES PT RECEIVED AWAKE IN BED. PATIENT IS A/OX4 PATIENT IS BREATHING EVENLY AND NONLABORED ON ROOM AIR TOLERATING WELL.NO SOB NOTED. NO S/S OF RESPIRATORY DISTRESS. PATIENT ON TELE MONITOR SHOWING SR 86 WITH PVC. PT HAS NO C/O PAIN AT THIS TIME. IV ACCESS ON LEFT UPPER ARM, MIDLINE 18 GAUGE, INTACT, PATENT AND FLUSHING WELL. BEDSIDE COMMODE IN PLACE. SAFETY MEASURES MAINTAINED. BED IN LOWEST LOCKED POSITION, HOB ELEVATED, SIDE RAILS UP X2. CALL LIGHT AND TABLE WITHIN REACH. WILL CONTINUE TO MONITOR.
[2021-04-28 19:51] VITALS: BP 117/68
[2021-04-28] MEDS: HYDROCODONE/APAP 5/325MG TABLET PO PRN (21:36)
[2021-04-29] VITALS: BP 129/74
[2021-04-29] MEDS: MEROPENEM 1 G in IV NS 0.9% 100 ML IV SCH ×2 (04:06→12:08)
[2021-04-29] MEDS: VANCOMYCIN HCL 0.75 GM in IV D5W 250 ML IV SCH ×2 (06:02→07:06)
--- NOTE | 2021-04-29 06:33 | NUR ---
HOSPICE OFFICE COORDINATOR NOTES PT AWAKE IN BED. PATIENT IS A/OX4 PATIENT IS BREATHING EVENLY AND NONLABORED ON ROOM AIR TOLERATING WELL.NO SOB NOTED. NO S/S OF RESPIRATORY DISTRESS. PATIENT ON TELE MONITOR SHOWING SR 86 WITH PVC. PT HAS NO C/O PAIN AT THIS TIME. IV ACCESS ON LEFT UPPER ARM, MIDLINE 18 GAUGE, INTACT, PATENT AND FLUSHING WELL. BEDSIDE COMMODE IN PLACE. SAFETY MEASURES MAINTAINED. BED IN LOWEST LOCKED POSITION, HOB ELEVATED, SIDE RAILS UP X2. CALL LIGHT AND TABLE WITHIN REACH. WILL CONTINUE ENDORSE TO DAY SHIFT NURSE.
[2021-04-29] MEDS: BLOOD SUGAR DIAGNOSTIC 1 EACH STRIP IN SCH ×3 (06:46→16:30)
[2021-04-29 07:02] LABS: BASOPHILS # (AUTO) 0.1 /CMM (0.0-0.2); BASOPHILS % (AUTO) 0.8 % (0.0-2.0); EOSINOPHILS % (AUTO) 5.6 % (0.0-6.0); HEMATOCRIT 35 % (33-45); HEMOGLOBIN 11.6 g/dL (11.5-14.8); LYMPHOCYTES # (AUTO) 2.1 /CMM (0.8-4.8); LYMPHOCYTES % (AUTO) 28.6 % (20.0-44.0); MEAN CORPUSCULAR HGB CONC 33 g/dl (31.0-36.0); MEAN CORPUSCULAR VOLUME 84 fL (82-100); MONOCYTES # (AUTO) 0.6 /CMM (0.1-1.30); MONOCYTES % (AUTO) 8.5 % (2.0-12.0); NEUTROPHILS # (AUTO) 4.3 /CMM (1.8-8.9); NEUTROPHILS % (AUTO) 56.5 % (43.0-81.0); PLATELET COUNT (AUTO) 180 /CMM (150-450); RED BLOOD CELL COUNT(AUTO) 4.18 MIL/uL (4.0-5.2); WHITE BLOOD COUNT (AUTO) 7.5 K/uL (4.3-11.0)
[2021-04-29 07:38] LABS: CALCIUM, SERUM 8.8 mg/dL (8.5-10.1); CREATININE 0.7 mg/dL (0.6-1.3); MAGNESIUM 1.7 mg/dL (1.8-2.4); POTASSIUM 4.1 mmol/L (3.5-5.1)
--- NOTE | 2021-04-29 08:00 | NUR ---
RN OPENING NOTE RECEIVED PATIENT IN BED, AO X 3-4, ABLE TO RESPONDS ALL STIMULI. NO S/S OF DISTRESS OBSERVED. SKIN IS WARM TO TOUCH KEEP CLEAN/DRY, INTACT IV SITE, IN JONES CAHTE FOR UTI. RESPIRATORY EVEN AND UNLABORED ON ROOM AIR, NO DISTRESS OBSERVED. KEPT ELEVATED HOB FOR ENSURE AIRWAY AND ASPIRATION PRECAUTION, ALSO LOWEST BED POSITION FOR SAFETY. CALL LIGHT WITHIN REACH, WILL CONTINUE TO MONITOR.
[2021-04-29] MEDS: LABETALOL HCL (100MG) 100 MG TABLET PO SCH ×2 (08:34→16:29)
[2021-04-29 08:35] VITALS: BP 168/83
[2021-04-29] MEDS: METFORMIN 500 MG TABLET PO SCH ×2 (08:35→16:29)
[2021-04-29] MEDS: HYDROCODONE/APAP 5/325MG TABLET PO PRN (08:35)
[2021-04-29] MEDS: CARVEDILOL 3.125 MG TABLET PO SCH ×2 (08:35→16:29)
[2021-04-29] MEDS: CLOTRIMAZOLE 1% 15 GM TUBE TP SCH ×2 (08:43→16:29)
[2021-04-29] MEDS: Magnesium 1GM/D5W 100ML PREMIX 100 ML IV SCH ×2 (09:42→11:12)
--- NOTE | 2021-04-29 10:00 | NUR ---
PATIENT C/O DISCOMFORT F/C NOTICED DEFLATE BALLOON, REINSERTED NEW JONES BRITTNI.
--- NOTE | 2021-04-29 12:00 | NUR ---
PATIENT REFUSED INSULIN AT LUNCH.
[2021-04-29] MEDS ORDERED: NITR100C PO (14:03)
--- NOTE | 2021-04-29 18:02 | NUR ---
PATIENT DISCHARGE TO HOME, GIVEN DISCHARGE INSTRUCTION INCLUDE PO ABX AND SIDE EFFECTS. 2ENTs PICKED UP PATIENT TO THE HOME. JONES CATHETER DISCHARGE WITH PATIENT ACCORDING MD. PATIENT MEDICALLY IN STABLE CONDITION.
== END 2021-04-29 18:27 | disposition home health service (06) | DRG 872 ==
LOC: ER 13:36 → TELE 18:03
PROC: 05HC33Z Insertion of Infusion Device into Left Basilic Vein, Percutaneous Approach (ICD-10-PCS; principal; 2021-04-28)
DX: A41.9 Sepsis, unspecified organism (principal); N39.0 Urinary tract infection, site not specified; D68.59 Other primary thrombophilia; E87.2 Acidosis; Z74.09 Other reduced mobility; Z20.822 Contact with and (suspected) exposure to COVID-19; F02.80 Dementia in other diseases classified elsewhere, unspecified severity, without behavioral disturbance, psychotic disturbance, mood disturbance, and anxiety; G20 Parkinson's disease; Z86.19 Personal history of other infectious and parasitic diseases; E11.9 Type 2 diabetes mellitus without complications; Z86.16 Personal history of COVID-19; I10 Essential (primary) hypertension; Z90.49 Acquired absence of other specified parts of digestive tract; Z90.710 Acquired absence of both cervix and uterus; M06.9 Rheumatoid arthritis, unspecified; K74.60 Unspecified cirrhosis of liver; R31.9 Hematuria, unspecified
CPT/HCPCS: 36415; 73030-TC; 80048-TC; 80053-TC; 80061-TC; 80202-TC; 81001; 82247-TC; 82248-TC; 82962-TC; 83605-TC; 83735-TC; 84100-TC; 84443-TC; 85025-TC; 85730-TC; 87040-TC; 87081-TC; 87086-TC; 87186-TC; C9803; G0378; J0696; J1815; J2185; J3370; J3475; J7030; J7060; Q0163

== ENCOUNTER 2021-05-11 00:13 | Inpatient (IN) | payer MEDICARE ==
[~2021-05-11] VITALS: Ht 167.6 cm; Wt 69.5 kg
[~2021-05-11 00:13] MED LIST changes: +CARV3.12 PO; +NITR100C PO; -VALS80TA2 PO
[2021-05-11] MEDS ORDERED: CEFEPIME 1 GM in IV D5W 50 ML IV ONE (01:00)
[2021-05-11] MEDS ORDERED: MEROPENEM 1,000 MG in IV NS 0.9% 100 ML IV ONE (01:00)
[2021-05-11] MEDS ORDERED: IV NS 0.9% 1,000 ML BAG IV ONE (01:00)
[2021-05-11] MEDS ORDERED: PHENAZOPYRIDINE HCL 200 MG TABLET PO ONE (01:00)
[2021-05-11 01:13] LABS: BILIRUBIN,URINE NEGATIVE (NEGATIVE); COLOR,URINE YELLOW (YELLOW); LEUKOCYTE ESTERASE ,URINE MODERATE (NEGATIVE); NITRITE, URINE NEGATIVE (NEGATIVE); PROTEIN,URINE >=300 mg/dl (NEGATIVE); UGLUCOSE NEGATIVE (NEGATIVE); UROBILINOGEN,URINE 0.2 EU/dL (0.2)
[2021-05-11 01:19] LABS: BACTERIA,URINE Many /HPF (None Seen); RBC,URINE 21-50 /HPF (0-2); SQUAMOUS EPITHELIAL CELL,UR Few /HPF (None Seen); WBC,URINE 81-100 /HPF (0-3); YEAST,URINE Many /HPF (None Seen)
[2021-05-11] MEDS ORDERED: PHENAZOPYRIDINE HCL 200 MG TABLET ONE (01:19)
[2021-05-11] MEDS ORDERED: CEFTRIAXONE 1GM BAG (ER ONLY) 50 ML IV ONE (01:19)
[2021-05-11 01:22] LABS: COLOR,URINE YELLOW (YELLOW)
[2021-05-11 01:23] LABS: PROTEIN,URINE >=300 mg/dl (NEGATIVE); UGLUCOSE NEGATIVE (NEGATIVE)
[2021-05-11 01:24] LABS: BILIRUBIN,URINE NEGATIVE (NEGATIVE); LEUKOCYTE ESTERASE ,URINE MODERATE (NEGATIVE); NITRITE, URINE NEGATIVE (NEGATIVE); UROBILINOGEN,URINE 0.2 EU/dL (0.2)
[2021-05-11 01:25] LABS: BACTERIA,URINE Many /HPF (None Seen); RBC,URINE 21-50 /HPF (0-2); SQUAMOUS EPITHELIAL CELL,UR Few /HPF (None Seen); WBC,URINE 81-100 /HPF (0-3); YEAST,URINE Many /HPF (None Seen)
[2021-05-11 01:26] LABS: BASOPHILS # (AUTO) 0.1 K/uL (0.0-0.2); BASOPHILS % (AUTO) 0.6 % (0.0-2.0); EOSINOPHILS % (AUTO) 1.7 % (0.0-6.0); HEMATOCRIT 44 % (33-45); HEMOGLOBIN 14.5 g/dL (11.5-14.8); LYMPHOCYTES # (AUTO) 2.6 K/uL (0.8-4.8); LYMPHOCYTES % (AUTO) 13.3 % (20.0-44.0); MEAN CORPUSCULAR HGB CONC 33 g/dl (31.0-36.0); MEAN CORPUSCULAR VOLUME 83 fL (82-100); MONOCYTES # (AUTO) 1.2 K/uL (0.1-1.30); MONOCYTES % (AUTO) 5.8 % (2.0-12.0); NEUTROPHILS # (AUTO) 15.7 K/uL (1.8-8.9); NEUTROPHILS % (AUTO) 78.6 % (43.0-81.0); PLATELET COUNT (AUTO) 341 K/uL (150-450); RED BLOOD CELL COUNT(AUTO) 5.35 MIL/uL (4.0-5.2)
[2021-05-11 01:35] LABS: ALANINE AMINOTRANSFERASE 90 U/L (12-78); ALBUMIN 3.3 g/dL (3.4-5.0); ALKALINE PHOSPHATASE 155 U/L (46-116); ASPARTATE AMINOTRANSFERASE 71 U/L (15-37); BILIRUBIN,DIRECT 0.1 mg/dL (0.0-0.2); BILIRUBIN,TOTAL 0.4 mg/dL (0.2-1.0); CALCIUM, SERUM 10.1 mg/dL (8.5-10.1); CARBON DIOXIDE 22 mmol/L (21-32); CHLORIDE 104 mmol/L (98-107); CREATININE 0.8 mg/dL (0.6-1.3); GLUCOSE 210 mg/dL (74-106); SODIUM SERUM 138 mmol/L (136-145); TOTAL PROTEIN, SERUM 7.7 g/dL (6.4-8.2); UREA NITROGEN, BLOOD 18 mg/dL (7-18)
--- NOTE | 2021-05-11 01:35 | NUR ---
ODALYS STEWART 878 FROM HOME C/O BLADDER PAIN X2 DAYS. PATIENT IS A/OX 4, RR EVEN AND UNLABORED, NO SIGNS OF SOB NOTED. PATIENT PRESENT WITH F/C. PATIENT CONNCETED TO FISHER PURSE SEINE AND POX. WILL CONTINUE TO MONITOR.
[2021-05-11] MEDS ORDERED: MEROPENEM 1 G VIAL IV ONE (01:39)
--- NOTE | 2021-05-11 01:40 | NUR ---
COVID SWAB COLLECTED AND SENT TO LAB
--- NOTE | 2021-05-11 01:46 | NUR ---
CALLED HOUSE SUP FOR TELE BED
--- NOTE | 2021-05-11 01:52 | NUR ---
BED ASSIGNMENT: 311-2 T
[2021-05-11] MEDS ORDERED: DEXTROSE 50%-WATER 50 ML DISP.SYRIN IV PRN (02:00)
[2021-05-11] MEDS ORDERED: ZOLPIDEM TARTRATE 5 MG TABLET PO PRN (02:00)
[2021-05-11] MEDS ORDERED: ONDANSETRON HCL/PF 4 MG/2 ML VIAL IVP PRN (02:00)
[2021-05-11] MEDS ORDERED: IV NS 0.9% 1,000 ML IV ONE (02:00)
[2021-05-11] MEDS ORDERED: Z GUARD REMEDY 2 OZ OINT TP PRN (02:00)
[2021-05-11] MEDS ORDERED: MAGNESIUM HYDROXIDE 30 ML UDC PO PRN (02:00)
--- NOTE | 2021-05-11 02:09 | NUR ---
REPORT GIVEN TO CHARGE NURSE MARVEL
[2021-05-11 02:17] VITALS: BP 177/94
--- NOTE | 2021-05-11 02:20 | NUR ---
PATIENT TRANSFERRED PER ACLS PROTOCOL
--- NOTE | 2021-05-11 02:20 | NUR ---
BAND STRAIGHTENER OPENING NOTES PATIENT ADMITTED FOR SEPSIS, ALERT/ORIENTED X 4, ABLE TO MAKE NEEDS KNOWN, COMPLAINING OF LOWER ABDOMINAL PAIN. PT STABLE ON RA, NO S/S OF DISTRESS OR SOB NOTED. PATIENT HAS EXTENSIVE REDNESS/WOUNDS ON BUTTOCKS AND STATES IT ITCHES. PER PATIENT SHE IS BEDBOUND D/T TO SEVERE LEG WEAKNESS AND HAS HAD DIARRHEA AT HOME. PETECHIA ALSO FOUND ON BILATERAL ARMS. LEFT FOREARM #20G IV ACCESS PATENT AND FLUSHING WELL. PATIENT BELONGINGS CHARTED, PT HAS $49 IN HER WALLET AND REFUSED TO STORE IT IN THE SAFE, RISKS AND BENEFITS EXPLAINED. ORIENTED PATIENT TO BEDROOM AND HOW TO USE CALL LIGHT. SAFETY MEASURES IN PLACE, CALL LIGHT AND TABLE WITHIN REACH, BED LOCKED IN LOWEST POSITION, BED ALARM ON. WILL CONTINUE TO MONITOR
[2021-05-11] MEDS ORDERED: VANCOMYCIN 1 GM in IV D5W 250ml IV ONE (02:30)
[2021-05-11] MEDS ORDERED: VANCOMYCIN 1 GM VIAL ONE (02:39)
[2021-05-11] MEDS: ACETAMINOPHEN 325 MG TABLET PO PRN ×2 (02:56→14:54)
[2021-05-11] MEDS: IV NS 0.9% 1,000 ML IV PRN ×2 (03:35→21:36)
[2021-05-11 04:00] VITALS: BP 126/62
[2021-05-11] MEDS ORDERED: IV NS 0.9% 500 ML IV ONE (05:30)
--- NOTE | 2021-05-11 05:30 | NUR ---
BILL BOARD POSTER NOTES TOYIN MEJIAS NP NOTIFIED OF CRITICAL LACTIC ACID OF 2.3 WITH NEW ORDER FOR 500 ML BOLUS OF NS. ORDER READ BACK AND CARRIED OUT.
--- NOTE | 2021-05-11 07:00 | NUR ---
CREW DIRECTOR CLOSING NOTES PATIENT RESTING IN BED, ALERT/ORIENTED X 4, ABLE TO MAKE NEEDS KNOWN. PT STABLE ON RA, NO S/S OF DISTRESS OR SHORTNESS OF BREATH NOTED. PT ON TELE MONITOR WITH SINUS TACHY, HR 102. LEFT FA IV ACCESS IS INTACT WITH A RUNNING NS @ 90ML/HR. MEDICATIONS GIVEN ORDERED, NEEDS MET THROUGHOUT SHIFT. SAFETY MEASURES IN PLACE, WILL ENDORSE TO DAY SHIFT NURSE FOR CONTINUITY OF CARE
--- NOTE | 2021-05-11 07:51 | NUR ---
TELE/RN OPENING NOTES RECEIVED PATIENT IN BED, ALERT AND ORIENTEDX4, ABLE TO MAKE NEEDS KNOWN. ON TELE MONITOR WITH SINUS TACHY ON 100'S. NO DISTRESS NOTED AT THIS TIME. ON ROOM AIR. LEFT FA IV ACCESS IS INTACT WITH A RUNNING NS @ 90ML/HR. SAFETY PRECAUTIONS IN PLACED. BED LOCKED ON LOWEST POSITION, CALL LIGHT WITHIN REACH. WILL CONTINUE TO MONITOR.
[2021-05-11] MEDS: BLOOD SUGAR DIAGNOSTIC 1 EACH STRIP VI SCH ×4 (08:03→21:17)
--- NOTE | 2021-05-11 08:18 | NUR ---
TELE/RN NOTES PATIENT'S BLOOD GLUCOSE IS 165, PATIENT REFUSED INSULIN INJECTION ADMINISTRATION BASED ON SLIDING SCALE, PER PATIENT, SHE JUST FINISHED HER BREAKFAST AND BS RESULT IS NOT THAT HIGH. WILL CONTINUE TO MONITOR.
[2021-05-11] MEDS: CARVEDILOL 3.125 MG TABLET PO SCH ×2 (08:36→18:04)
--- NOTE | 2021-05-11 12:05 | NUR ---
TELE/RN NOTES PATIENT'S BLOOD SUGAR RESULT IS 159, REFUSED 2 UNITS OF INSULIN TO BE ADMINISTERED BASED ON A SLIDING SCALE. EXPLAINED BENEFITS OF HAVING AN INSULIN SHOT, BUT PATIENT STILL REFUSED. WILL CONTINUE TO MONITOR.
[2021-05-11] MEDS: MEROPENEM 500 MG in IV NS 0.9% 50 ML IV SCH ×2 (12:49→21:17)
[2021-05-11] MEDS ORDERED: MEROPENEM 500 MG in IV NS 0.9% 100 ML IV SCH (13:00)
[2021-05-11] MEDS ORDERED: MEROPENEM 1 G in IV NS 0.9% 100 ML IV SCH (13:00)
[2021-05-11] MEDS: VANCOMYCIN 0.75 GM in IV D5W 250 ML IV SCH (15:12)
[2021-05-11] MEDS: HYDROCODONE/APAP 5/325MG TABLET PO PRN ×2 (16:21→22:10)
--- NOTE | 2021-05-11 19:32 | NUR ---
TELE/RN CLOSING NOTES PATIENT IN BED, ALERT AND ORIENTEDX4, ABLE TO MAKE NEEDS KNOWN. ON TELE MONITOR WITH SINUS TACHY ON 100'S. NO DISTRESS NOTED AT THIS TIME. ON ROOM AIR. LEFT FA IV ACCESS IS INTACT WITH A RUNNING NS @ 90ML/HR. SAFETY PRECAUTIONS IN PLACED. BED LOCKED ON LOWEST POSITION, CALL LIGHT WITHIN REACH. WILL ENDORSE TO THE NEXT SHIFT FOR CONTINUITY OF CARE.
[2021-05-11 20:00] VITALS: BP 150/84
[2021-05-11] MEDS: INSULIN REGULAR, HUMAN 100 UNIT/ML 3 ML VIAL SQ PRN (21:40)
[2021-05-12] VITALS: BP_SYST 143; BP_SYST 161; BP_DIAS 100; BP_DIAS 78
[2021-05-12] MEDS: VANCOMYCIN 0.75 GM in IV D5W 250 ML IV SCH ×3 (03:33→19:12)
[2021-05-12] MEDS: HYDROCODONE/APAP 5/325MG TABLET PO PRN ×4 (04:30→21:26)
[2021-05-12 04:59] VITALS: BP 164/94
[2021-05-12] MEDS ORDERED: HYDROMORPHONE 1 MG/1 ML DISP.SYRIN IV ONE (05:00)
[2021-05-12] MEDS: MEROPENEM 500 MG in IV NS 0.9% 50 ML IV SCH ×3 (05:17→21:08)
--- NOTE | 2021-05-12 05:57 | NUR ---
MAJOR APPLIANCE ASSEMBLY SUPERVISOR NOTES PT REFUSED BLOOD DRAW. EXPLAINED TO PT IMPORTANCE OF BLOOD DRAW IN HER POC BUT PT STILL REFUSED. WILL CONTINUE TO MONITOR.
--- NOTE | 2021-05-12 05:58 | NUR ---
MEDIUM CYCLE SALESPERSON NOTES BLOOD SUGAR CHECKED 167. PT REFUSED TO HAVE INSULIN COVERAGE. EXPLAINED TO PT IMPORTANCE OF INSULIN COVERAGE IN HER POC BUT PT STILL REFUSED. WILL CONTINUE TO MONITOR.
--- NOTE | 2021-05-12 06:21 | NUR ---
PRECAST WORKER NOTES AWAKE & RESPONSIVE. NOT IN ANY DISTRESS. NO SOB NOTED. DENIES ANY PAIN OR DISCOMFORT AT THIS TIME. ON TELE SR WITH OCC PVCS @ 92 WITH IVF INFUSING WELL. AM CARE DONE. MONITORED ACCORDINGLY. CALL LIGHT WITHIN REACH. BED IN LOWEST POSITION. SR UP X3 WITH BED ALARM ON FOR SAFETY. WILL ENDORSE TO NEXT SHIFT.
--- NOTE | 2021-05-12 07:15 | NUR ---
MAILROOM COURIER OPENING NOTES RECEIVED PATIENT IN BED, ALERT AND ORIENTEDX4, ABLE TO MAKE NEEDS KNOWN. ON TELE MONITOR WITH SINUS TACHY ON 102. NO DISTRESS NOTED AT THIS TIME. ON ROOM AIR WITH NO RESPIRATORY DISTRESS. LEFT FA IV ACCESS IS INTACT WITH A RUNNING NS @ 90ML/HR. SAFETY PRECAUTIONS IN PLACED. BED LOCKED ON LOWEST POSITION, CALL LIGHT WITHIN REACH. WILL CONTINUE TO MONITOR.
[2021-05-12] MEDS: BLOOD SUGAR DIAGNOSTIC 1 EACH STRIP VI SCH ×4 (07:36→22:11)
[2021-05-12 08:00] VITALS: BP 122/69
[2021-05-12] MEDS: CARVEDILOL 3.125 MG TABLET PO SCH ×2 (08:28→17:44)
--- NOTE | 2021-05-12 10:48 | NUR ---
WOUND CARE CONSULT: PT PRESENTS WITH DISCOLORATION TO BILATERAL ARMS AND RED RASH TO SACRUM, BUTTOCKS AND PERINEUM, PRESENT ON ADMISSION. PT IS INCONTINENT. RECOMMENDATIONS MADE FOR SKIN PROTECTION AND CARE. DISCUSSED WITH NURSING STAFF. PT TO BE PLACED ON MIESHA ISOFLEX LOW AIRLOSS BED. MD IN AGREEMENT WITH PLAN OF CARE.
[2021-05-12] MEDS: IV NS 0.9% 1,000 ML IV PRN (12:35)
[2021-05-12] MEDS: FLUCONAZOLE IN NS 100 MG in PREMIX 1 EA IV SCH ×2 (14:30→19:05)
[2021-05-12 14:45] LABS: BASOPHILS % (AUTO) 0.4 % (0.0-2.0); HEMATOCRIT 38 % (33-45); HEMOGLOBIN 12.4 g/dL (11.5-14.8); LYMPHOCYTES # (AUTO) 1.1 K/uL (0.8-4.8); LYMPHOCYTES % (AUTO) 9.7 % (20.0-44.0); MEAN CORPUSCULAR HGB CONC 33 g/dl (31.0-36.0); MEAN CORPUSCULAR VOLUME 84 fL (82-100); MONOCYTES # (AUTO) 0.8 K/uL (0.1-1.30); MONOCYTES % (AUTO) 7.1 % (2.0-12.0); NEUTROPHILS # (AUTO) 8.9 K/uL (1.8-8.9); NEUTROPHILS % (AUTO) 80.8 % (43.0-81.0); PLATELET COUNT (AUTO) 204 K/uL (150-450); RED BLOOD CELL COUNT(AUTO) 4.54 MIL/uL (4.0-5.2)
[2021-05-12] MEDS: MAG HYDROX/AL HYDROX/SIMETH 30 ML UDC PO PRN ×2 (15:05→23:57)
[2021-05-12 15:07] LABS: ALBUMIN 2.7 g/dL (3.4-5.0); BILIRUBIN,TOTAL 0.7 mg/dL (0.2-1.0); CALCIUM, SERUM 9.5 mg/dL (8.5-10.1); CREATININE 0.8 mg/dL (0.6-1.3); MAGNESIUM 1.4 mg/dL (1.8-2.4); PHOSPHORUS 2.8 mg/dL (2.5-4.9); TOTAL PROTEIN, SERUM 6.5 g/dL (6.4-8.2)
--- NOTE | 2021-05-12 15:45 | NUR ---
PRODUCTION SUPPORT MANAGER NOTE PATIENT COMPLAINED OF PAIN ON THE LEFT ARM, PATIENT ALSO SAID HER IT IS FROM HER IV LINE. I ASKED HER IF I CAN ASSESS IT, BUT SHE REFUSED AT THIS TIME. FAMILY IS AT BEDSIDE. DR. LOPEZ AWARE. PATIENT WITH MEDICATIONS DUE BUT REFUSED TO HAVE IV RUNNING AND IV ANTIBIOTIC AT THIS TIME. PATIENT ALSO SAID THAT SHE PREFERS A MIDLINE INSTEAD SO SHE DOESNT HAVE TO BE POKED AGAIN AND AGAIN. AWAITNG ORDERS. HEALTH TEACHING DONE. VERBALIZED UNDERSTANDIGN AND APPRECIAITON. WILL CONTINUE TO MONITOR PATIENT.
[2021-05-12 16:12] VITALS: BP 155/84
[2021-05-12] MEDS: CLOTRIMAZOLE/BETAMETASONE DIPROPIONATE 15 GM TUBE TP SCH (17:43)
[2021-05-12] MEDS: GLUCERNA SHAKE 237 ML CAN PO SCH (17:47)
--- NOTE | 2021-05-12 18:30 | NUR ---
CELL FEED DEPARTMENT SUPERVISOR NOTE MIDLINE INSERTED ORDERED C/O DR. DONIS. IV FLUIDS RESTARTED AND ANTIBIOTIC GIVEN. PATIENT ALSO ASKED FOR PAIN MEDICATION MORPHINE. WILL ENDORSE TO NEXT SHIFT.
--- NOTE | 2021-05-12 18:55 | NUR ---
MARKET NEWS REPORTER CLOSING NOTES RECEIVED PATIENT IN BED, ALERT AND ORIENTEDX4, ABLE TO MAKE NEEDS KNOWN. ON TELE MONITOR WITH SINUS RHYTHYM. NO DISTRESS NOTED AT THIS TIME. ON ROOM AIR WITH NO RESPIRATORY DISTRESS. LEFT FA IV ACCESS, REFUSED TO HAVE IT REMOVED AT THIS TIME. WITH MIDLINE FR18 ON RIGHT ARM WITH IVFLUID RUNNING NS @ 90ML/HR. SAFETY PRECAUTIONS IN PLACED. BED LOCKED ON LOWEST POSITION, CALL LIGHT WITHIN REACH. WILL CONTINUE TO MONITOR. Addendum: 05/12/21 at 1999 by DOM MEJIAS RN WILL ENDORSE TO FENCE REPAIRMAN FOR CONTINUITY OF CARE.
[2021-05-12] MEDS: MORPHINE SULFATE INJ 2 MG/ML DISP.SYRIN IV PRN ×2 (19:05→23:11)
--- NOTE | 2021-05-12 19:25 | NUR ---
TELE/RN OPENING NOTE RECEIVED PATIENT RESTING IN BED. AWAKE, ALERT AND ORIENTED X 4. ABLE TO MAKE NEEDS KNOWN. CONTINUES ON ROOM AIR WITH NO S/SX OF RESPIRATORY DISTRESS NOTED. IV ACCESS TO RIGHT UPPER ARM MIDLINE #18G AND LEFT FOREARM #20G BOTH INTACT AND PATENT. CONTINUES ON IVF 0.9% NS. CONTINUES ON IV ABX. CALL LIGHT WITHIN REACH. ASPIRATION, FALL AND SAFETY PRECAUTIONS MAINTAINED. WILL CONTINUE TO MONITOR. Addendum: 05/12/21 at 2015 by ULISSES AHRRIS RN TELE MONITOR READING SR HR 85
[2021-05-12 20:00] VITALS: BP 134/69
--- NOTE | 2021-05-12 20:27 | NUR ---
TELE/RN NOTE PATIENT WITH C/O PAIN TO LEFT FOREARM IV SITE. PATIENT HAS MIDLINE TO RIGHT UPPER ARM. LEFT FOREARM IV REMOVED WITH PRESSURE DRESSING APPLIED. PATIENT TOLERATED WELL. WILL CONTINUE TO MONITOR.
[2021-05-12] MEDS: *INSULIN REGULAR(HUMULIN R)HUM 100 UNIT/ML VIAL SQ PRN (22:17)
[2021-05-13] VITALS: BP 112/64
--- NOTE | 2021-05-13 00:15 | NUR ---
TELE/RN NOTE PATIENT WITH C/O ITCHINESS TO BACK AREA. NO RASH NOTED. NOTIFIED INTAKE MAN DIRECTOR LIFE INSURANCE TOYIN MEJIAS WITH NEW ORDER FOR BENADRYL 25MG PO Q6HR PRN. ORDER IMPUTED AND CARRIED OUT. WILL CONTINUE TO MONITOR.
[2021-05-13] MEDS: diphenhydrAMINE HCL 25 MG CAPSULE PO PRN (00:54)
[2021-05-13] MEDS: VANCOMYCIN 0.75 GM in IV D5W 250 ML IV SCH ×2 (03:48→15:29)
[2021-05-13 04:00] VITALS: BP 138/78
[2021-05-13] MEDS: MEROPENEM 500 MG in IV NS 0.9% 50 ML IV SCH ×3 (04:51→21:29)
[2021-05-13] MEDS: MORPHINE SULFATE INJ 2 MG/ML DISP.SYRIN IV PRN ×3 (05:53→16:08)
--- NOTE | 2021-05-13 06:25 | NUR ---
TELE/RN CLOSING NOTE PATIENT CURRENTLY RESTING IN BED. AWAKE, ALERT AND ORIENTED X 4. ABLE TO MAKE NEEDS KNOWN. CONTINUES ON ROOM AIR WITH NO S/SX OF RESPIRATORY DISTRESS NOTED. IV ACCESS TO RIGHT UPPER ARM MIDLINE #18G INTACT AND PATENT. CONTINUES ON IVF 0.9% NS @ 90ML/HR. CONTINUES ON IV ABX. CALL LIGHT WITHIN REACH. ASPIRATION, FALL AND SAFETY PRECAUTIONS MAINTAINED. WILL ENDORSE PLAN OF CARE TO ONCOMING SHIFT. Addendum: 05/13/21 at 0647 by ULISSES HARRIS RN TELE MONITOR READING ST HR 103
[2021-05-13] MEDS: BLOOD SUGAR DIAGNOSTIC 1 EACH STRIP VI SCH ×4 (06:42→21:28)
--- NOTE | 2021-05-13 07:15 | NUR ---
CHASSIS DRIVER OPENING NOTES RECEIVED PATIENT IN BED, ALERT AND ORIENTED X 4, ABLE TO MAKE NEEDS KNOWN. ON TELE MONITOR WITH SINUS TACHY AT 103. ON ROOM AIR WITH NO RESPIRATORY DISTRESS. WITH MIDLINE FR18 ON RIGHT ARM WITH IV FLUID RUNNING NS @ 90ML/HR. SAFETY PRECAUTIONS IN PLACED. BED LOCKED ON LOWEST POSITION, CALL LIGHT WITHIN REACH. WILL CONTINUE TO MONITOR PATIENT.
[2021-05-13 07:40] LABS: BASOPHILS # (AUTO) 0.1 K/uL (0.0-0.2); BASOPHILS % (AUTO) 0.9 % (0.0-2.0); EOSINOPHILS % (AUTO) 4.6 % (0.0-6.0); HEMATOCRIT 36 % (33-45); HEMOGLOBIN 11.9 g/dL (11.5-14.8); LYMPHOCYTES # (AUTO) 1.4 K/uL (0.8-4.8); LYMPHOCYTES % (AUTO) 19.8 % (20.0-44.0); MEAN CORPUSCULAR HGB CONC 33 g/dl (31.0-36.0); MEAN CORPUSCULAR VOLUME 84 fL (82-100); MONOCYTES # (AUTO) 0.8 K/uL (0.1-1.30); MONOCYTES % (AUTO) 11.2 % (2.0-12.0); NEUTROPHILS # (AUTO) 4.4 K/uL (1.8-8.9); NEUTROPHILS % (AUTO) 63.5 % (43.0-81.0); PLATELET COUNT (AUTO) 188 K/uL (150-450); RED BLOOD CELL COUNT(AUTO) 4.33 MIL/uL (4.0-5.2); WHITE BLOOD COUNT (AUTO) 6.9 K/uL (4.3-11.0)
[2021-05-13 07:48] VITALS: BP 137/82
[2021-05-13 07:54] LABS: ALBUMIN 2.4 g/dL (3.4-5.0); CALCIUM, SERUM 8.9 mg/dL (8.5-10.1); CREATININE 0.6 mg/dL (0.6-1.3); MAGNESIUM 1.5 mg/dL (1.8-2.4); PHOSPHORUS 2.3 mg/dL (2.5-4.9); POTASSIUM 3.9 mmol/L (3.5-5.1); TOTAL PROTEIN, SERUM 5.8 g/dL (6.4-8.2)
[2021-05-13] MEDS: GLUCERNA SHAKE 237 ML CAN PO SCH ×2 (08:00→17:00)
[2021-05-13] MEDS: CARVEDILOL 3.125 MG TABLET PO SCH ×2 (09:06→17:06)
[2021-05-13] MEDS: CLOTRIMAZOLE/BETAMETASONE DIPROPIONATE 15 GM TUBE TP SCH ×2 (09:07→17:12)
[2021-05-13] MEDS: IV NS 0.9% 1,000 ML IV PRN (09:15)
[2021-05-13] MEDS ORDERED: NEUTRA PHOS 1 POWD.PACKET PO ONE (10:30)
[2021-05-13] MEDS: Magnesium 1GM/D5W 100ML PREMIX 100 ML IV SCH ×2 (10:40→11:41)
[2021-05-13] MEDS ORDERED: IV NS 0.9% 250 ML IV ONE (11:15)
[2021-05-13] MEDS ORDERED: IOHEXOL-300 100 ML VIAL IV ONE (11:15)
[2021-05-13] MEDS: INSULIN REGULAR, HUMAN 100 UNIT/ML 3 ML VIAL SQ PRN ×2 (11:40→17:51)
[2021-05-13] MEDS ORDERED: FLUCONAZOLE IN NS 100 MG in PREMIX 1 EA IV SCH (13:00)
[2021-05-13] MEDS: HYDROCODONE/APAP 5/325MG TABLET PO PRN ×2 (13:07→19:41)
[2021-05-13 16:00] VITALS: BP 126/69
--- NOTE | 2021-05-13 19:10 | NUR ---
BRANCH BANKER CLOSING NOTES RECEIVED PATIENT IN BED, ALERT AND ORIENTEDX4, ABLE TO MAKE NEEDS KNOWN. ON TELE MONITOR WITH SINUS RHYTHM. NO DISTRESS NOTED AT THIS TIME. ON ROOM AIR WITH NO RESPIRATORY DISTRESS. LEFT FA IV ACCESS, REFUSED TO HAVE IT REMOVED AT THIS TIME. WITH MIDLINE FR18 ON RIGHT ARM WITH IV FLUID RUNNING NS @ 90ML/HR. SAFETY PRECAUTIONS IN PLACED. BED LOCKED ON LOWEST POSITION, CALL LIGHT WITHIN REACH. ENDORSED TO NEXT SHIFT FOR CONTINUITY OF CARE.
--- NOTE | 2021-05-13 19:16 | NUR ---
THERAPEUTIC ACTIVITIES SERVICES WORKER: CONTINUITY OF CARE Patient in bed, awake. Sinus rhythm HR 79 in the Tele monitor. CARI Midline, IVF infusing. Reports left shoulder pain. Education on pain medication [place] and possible side effect given to patient, verbalized understanding. Fall precaution maintained.
--- NOTE | 2021-05-13 19:47 | NUR ---
PERIANESTHESIA MANAGER: SHOULDER PAIN Patient c/o left shoulder pain /, limited movement LUE d/t pain. PRN [place] given, will reassess.
[2021-05-13 19:51] VITALS: BP 129/72
[2021-05-13 20:00] VITALS: BP 129/72
[2021-05-13] MEDS: *INSULIN REGULAR(HUMULIN R)HUM 100 UNIT/ML VIAL SQ PRN (21:44)
--- NOTE | 2021-05-13 21:46 | NUR ---
PAPER PROCESSING MACHINE HELPER: ACCU CHECK FSBS 174mg/dl Given 3 units insulin per sliding scale, witnessed by DEMETRIO Trinh.
[2021-05-14] VITALS (7 sets, daily range): BP systolic 124–144; BP diastolic 57–74
[2021-05-14] MEDS: IV NS 0.9% 1,000 ML IV PRN (02:32)
[2021-05-14] MEDS: VANCOMYCIN 0.75 GM in IV D5W 250 ML IV SCH ×2 (03:04→15:00)
[2021-05-14] MEDS: MEROPENEM 500 MG in IV NS 0.9% 50 ML IV SCH ×3 (04:59→20:31)
--- NOTE | 2021-05-14 06:18 | NUR ---
PAD MACHINE FEEDER: END OF SHIFT REPORT Patient is A/O x3. Sinus Rhythm with PVC HR 81 in the Tele monitor. Ongoing IVF, on IV Merrem/Vanco/Diflucan. Afebrile. Left shoulder pain improved with [place]. Incontinent with urine, sacrum/buttock/perineum most of the time moist, rash moderately red, skin blanchable. Treatment Lotrimin cream applied to rash. Fall precaution maintained. Will endorse to oncoming RN.
[2021-05-14] MEDS: BLOOD SUGAR DIAGNOSTIC 1 EACH STRIP VI SCH ×4 (06:50→22:12)
--- NOTE | 2021-05-14 06:55 | NUR ---
ASSISTANT RESEARCH SCIENTIST: ACCU CHECK FSBG 159mg/dl Given 2 units insulin per sliding scale, witnessed by DEMETRIO Tovar.
--- NOTE | 2021-05-14 07:15 | NUR ---
SHIPWRIGHT HELPER OPENING NOTES RECEIVED PATIENT IN BED, ALERT AND ORIENTED X 4, ABLE TO MAKE NEEDS KNOWN. ON TELE MONITOR WITH SINUS RHYTHM AT 81 WITH SOME PVC. ON ROOM AIR WITH NO RESPIRATORY DISTRESS. WITH MIDLINE FR18 ON RIGHT ARM WITH IV FLUID RUNNING NS @ 90ML/HR. COMFORT MEASURES PROVIDED. NO COMPLAINT OF PAIN AT THIS TIME. SAFETY PRECAUTIONS IN PLACED. BED LOCKED ON LOWEST POSITION, CALL LIGHT WITHIN REACH. WILL CONTINUE TO MONITOR PATIENT.
[2021-05-14] MEDS: GLUCERNA SHAKE 237 ML CAN PO SCH ×2 (08:00→17:00)
[2021-05-14] MEDS: CARVEDILOL 3.125 MG TABLET PO SCH ×2 (08:46→19:04)
[2021-05-14] MEDS: CLOTRIMAZOLE/BETAMETASONE DIPROPIONATE 15 GM TUBE TP SCH ×2 (08:47→17:00)
[2021-05-14 09:35] LABS: BASOPHILS % (AUTO) 0.5 % (0.0-2.0); EOSINOPHILS % (AUTO) 2.5 % (0.0-6.0); HEMATOCRIT 35 % (33-45); HEMOGLOBIN 11.5 g/dL (11.5-14.8); LYMPHOCYTES % (AUTO) 15.1 % (20.0-44.0); MEAN CORPUSCULAR HGB CONC 33 g/dl (31.0-36.0); MEAN CORPUSCULAR VOLUME 84 fL (82-100); MONOCYTES # (AUTO) 0.6 K/uL (0.1-1.30); NEUTROPHILS # (AUTO) 4.9 K/uL (1.8-8.9); NEUTROPHILS % (AUTO) 72.9 % (43.0-81.0); PLATELET COUNT (AUTO) 190 K/uL (150-450); RED BLOOD CELL COUNT(AUTO) 4.15 MIL/uL (4.0-5.2); WHITE BLOOD COUNT (AUTO) 6.8 K/uL (4.3-11.0)
[2021-05-14 10:02] LABS: ALBUMIN 2.2 g/dL (3.4-5.0); BILIRUBIN,TOTAL 0.5 mg/dL (0.2-1.0); CALCIUM, SERUM 8.5 mg/dL (8.5-10.1); CREATININE 0.7 mg/dL (0.6-1.3); MAGNESIUM 1.7 mg/dL (1.8-2.4); PHOSPHORUS 2.9 mg/dL (2.5-4.9); POTASSIUM 4.3 mmol/L (3.5-5.1); TOTAL PROTEIN, SERUM 5.7 g/dL (6.4-8.2)
[2021-05-14] MEDS: Magnesium 1GM/D5W 100ML PREMIX 100 ML IV SCH ×2 (10:52→17:41)
[2021-05-14] MEDS: VORICONAZOLE 400 MG in IV D5W 250 ML IV SCH ×2 (11:45→22:13)
[2021-05-14] MEDS: INSULIN REGULAR, HUMAN 100 UNIT/ML 3 ML VIAL SQ PRN (12:07)
[2021-05-14] MEDS ORDERED: NEUTRA PHOS 1 POWD.PACKET PO ONE (17:00)
--- NOTE | 2021-05-14 19:00 | NUR ---
CLINICAL PHARMACY TECHNICIAN OPENING NOTES RECEIVED PATIENT IN BED, ALERT AND ORIENTED X 4, ABLE TO MAKE NEEDS KNOWN. ON ROOM AIR WITH NO RESPIRATORY DISTRESS. WITH MIDLINE FR18 ON RIGHT ARM WITH IV FLUID RUNNING NS @ 90ML/HR. COMFORT MEASURES PROVIDED. SAFETY PRECAUTIONS IN PLACED. BED LOCKED ON LOWEST POSITION, CALL LIGHT WITHIN REACH. WILL ENDORSE TO NURSE FOR CONTINUITY OF CARE
[2021-05-14] MEDS: MORPHINE SULFATE INJ 2 MG/ML DISP.SYRIN IV PRN (19:09)
--- NOTE | 2021-05-14 19:20 | NUR ---
TELE/RN OPENING NOTE RECEIVED PATIENT RESTING IN BED. AWAKE, ALERT AND ORIENTED X 4. ABLE TO MAKE NEEDS KNOWN. DENIES PAIN AT THIS TIME. CONTINUES ON ROOM AIR WITH NO S/SX OF RESPIRATORY DISTRESS NOTED. IV ACCESS TO RIGHT UPPER ARM MIDLINE INTACT AND PATENT. CONTINUES ON IV NS 0.9% @ 90ML/HR. CONTINUES ON IV ABX AND IV ANTIFUNGAL. CALL LIGHT WITHIN REACH. ASPIRATION, FALL AND SAFETY PRECAUTIONS MAINTAINED. WILL CONTINUE TO MONITOR.
[2021-05-14] MEDS: diphenhydrAMINE HCL 25 MG CAPSULE PO PRN (22:13)
--- NOTE | 2021-05-14 22:29 | NUR ---
TELE/RN NOTE PATIENTS BLOOD GLUCOSE LEVEL AT HS IS 231. PATIENT REFUSING INSULIN AT THIS TIME. STATES SHE KNOWS HER BODY AND THE SUGAR WILL GO DOWN BY THE MORNING. EDUCATED ON RISKS/BENEFITS WITH PATIENT CONTINUING TO REFUSE. WILL CONTINUE TO MONITOR.
[2021-05-15] MEDS: IV NS 0.9% 1,000 ML IV PRN (00:39)
[2021-05-15] MEDS: VANCOMYCIN 0.75 GM in IV D5W 250 ML IV SCH ×2 (03:44→15:21)
[2021-05-15] MEDS: MEROPENEM 500 MG in IV NS 0.9% 50 ML IV SCH ×3 (05:08→20:41)
--- NOTE | 2021-05-15 06:20 | NUR ---
MS/RN CLOSING NOTE PATIENT CURRENTLY RESTING IN BED. ALERT AND ORIENTED X 4. ABLE TO MAKE NEEDS KNOWN. DENIES PAIN AT THIS TIME. CONTINUES ON ROOM AIR WITH NO S/SX OF RESPIRATORY DISTRESS NOTED. IV ACCESS TO RIGHT UPPER ARM MIDLINE INTACT AND PATENT. CONTINUES ON IV NS 0.9% @ 90ML/HR. CONTINUES ON IV ABX AND IV ANTIFUNGAL. CALL LIGHT WITHIN REACH. ASPIRATION, FALL AND SAFETY PRECAUTIONS MAINTAINED. WILL ENDORSE PLAN OF CARE TO ONCOMING SHIFT.
[2021-05-15] MEDS: BLOOD SUGAR DIAGNOSTIC 1 EACH STRIP VI SCH ×4 (06:22→22:02)
[2021-05-15] MEDS: INSULIN REGULAR, HUMAN 100 UNIT/ML 3 ML VIAL SQ PRN ×2 (06:26→16:45)
--- NOTE | 2021-05-15 07:10 | NUR ---
RN OPENING NOTE RECEIVED PATIENT IN BED. A/O X4. ON ROOM AIR, TOLERATING WELL. NO SOB NOTED. IN NO APPARENT DISTRESS. IV ACCESS ON CARI MIDLINE, INTACT AND PATENT, NS RUNNING AT 90 ML/HR. SAFETY MEASURES MAINTAINED. BED IN LOWEST POSITION, BRAKES LOCKED. SIDE RAILS UP X2. CALL LIGHT WITHIN REACH. WILL CONTINUE PLAN OF CARE.
[2021-05-15 08:00] VITALS: BP 138/70
[2021-05-15] MEDS: GLUCERNA SHAKE 237 ML CAN PO SCH ×2 (08:00→16:13)
[2021-05-15] MEDS: VORICONAZOLE 200 MG TABLET PO SCH ×2 (08:31→20:43)
[2021-05-15] MEDS: CARVEDILOL 3.125 MG TABLET PO SCH ×2 (08:32→16:12)
[2021-05-15] MEDS: CLOTRIMAZOLE/BETAMETASONE DIPROPIONATE 15 GM TUBE TP SCH ×2 (08:33→16:13)
[2021-05-15] MEDS: *INSULIN REGULAR(HUMULIN R)HUM 100 UNIT/ML VIAL SQ PRN ×2 (12:02→22:02)
[2021-05-15 13:25] LABS: BASOPHILS % (AUTO) 0.4 % (0.0-2.0); EOSINOPHILS % (AUTO) 1.9 % (0.0-6.0); HEMATOCRIT 35 % (33-45); HEMOGLOBIN 11.4 g/dL (11.5-14.8); LYMPHOCYTES # (AUTO) 1.2 K/uL (0.8-4.8); LYMPHOCYTES % (AUTO) 14.8 % (20.0-44.0); MEAN CORPUSCULAR HGB CONC 33 g/dl (31.0-36.0); MEAN CORPUSCULAR VOLUME 84 fL (82-100); MONOCYTES # (AUTO) 0.9 K/uL (0.1-1.30); MONOCYTES % (AUTO) 11.3 % (2.0-12.0); NEUTROPHILS # (AUTO) 5.7 K/uL (1.8-8.9); NEUTROPHILS % (AUTO) 71.6 % (43.0-81.0); PLATELET COUNT (AUTO) 210 K/uL (150-450)
[2021-05-15 13:44] LABS: ALBUMIN 2.3 g/dL (3.4-5.0); BILIRUBIN,TOTAL 0.2 mg/dL (0.2-1.0); CALCIUM, SERUM 8.7 mg/dL (8.5-10.1); CREATININE 0.7 mg/dL (0.6-1.3); MAGNESIUM 1.6 mg/dL (1.8-2.4); PHOSPHORUS 2.3 mg/dL (2.5-4.9); POTASSIUM 3.6 mmol/L (3.5-5.1); TOTAL PROTEIN, SERUM 5.9 g/dL (6.4-8.2)
[2021-05-15 16:00] VITALS: BP 119/50
--- NOTE | 2021-05-15 18:17 | NUR ---
RN CLOSING NOTE PATIENT RESTING IN BED. A/O X4. ON ROOM AIR, SATURATING WELL AT 99%. NO SOB NOTED. NO S/S OF RESPIRATORY DISTRESS. IV ACCESS ON CARI MIDLINE, INTACT AND PATENT. ALL DUE MEDS GIVEN ORDERED. ALL NEEDS HAVE BEEN MET AND ATTENDED. SAFETY MEASURES MAINTAINED. BED IN LOWEST POSITION, BRAKES LOCKED. SIDE RAILS UP X2. KEPT CALL LIGHT WITHIN REACH. WILL ENDORSE CONTINUITY OF CARE TO ONCOMING SHIFT.
--- NOTE | 2021-05-15 19:30 | NUR ---
MS RN OPENING PATIENT ENDORSED TO ME IN BED. A/OX4. COMPLAINING OF PAIN BUT TOLERABLE. NO S/S OF APPARENT DISTRESS. PATIENT R. FOOT EDEMA +3 NOTED. NO IV FLUID RUNNING AT THE MOMENT. SAFETY IN PLACE: BED IN LOWEST, LOCKED POSITION. CALL LIGHT WITHIN REACH. WILL CONTINUE TO MONITOR.
[2021-05-15 20:00] VITALS: BP 129/62
[2021-05-15] MEDS: HYDROCODONE/APAP 5/325MG TABLET PO PRN (21:55)
--- NOTE | 2021-05-15 21:57 | NUR ---
MS RN NOTES PATIENT GIVEN NORCO AT THIS TIME. C/O 06/20 PAIN. WILL REASSESS.
--- NOTE | 2021-05-15 22:02 | NUR ---
MS RN NOTES PATIENT HS BS 215. GIVEN 4 UNITS OF INSULIN PER SLIDING SCALE AT THIS TIME.
[2021-05-16] MEDS: VANCOMYCIN 0.75 GM in IV D5W 250 ML IV SCH ×2 (03:00→15:09)
[2021-05-16] MEDS: MEROPENEM 500 MG in IV NS 0.9% 50 ML IV SCH ×2 (05:20→12:34)
--- NOTE | 2021-05-16 07:12 | NUR ---
MS RN NOTES PATIENT AC BS 141 REFUSING INSULIN AT THE MOMENT EVEN WITH PATIENT EDUCATION. PER PATIENT "141 IS GOOD. IF I GET INSULIN IT WILL DROP MORE AND MORE". WILL ENDORSE TO MORNING RN IF SHE CHANGES HER MIND.
[2021-05-16] MEDS: BLOOD SUGAR DIAGNOSTIC 1 EACH STRIP VI SCH ×2 (07:25→11:56)
[2021-05-16 07:31] LABS: BASOPHILS # (AUTO) 0.1 K/uL (0.0-0.2); BASOPHILS % (AUTO) 0.6 % (0.0-2.0); EOSINOPHILS % (AUTO) 1.9 % (0.0-6.0); HEMATOCRIT 36 % (33-45); HEMOGLOBIN 11.7 g/dL (11.5-14.8); LYMPHOCYTES # (AUTO) 1.9 K/uL (0.8-4.8); LYMPHOCYTES % (AUTO) 20.6 % (20.0-44.0); MEAN CORPUSCULAR HGB CONC 33 g/dl (31.0-36.0); MEAN CORPUSCULAR VOLUME 84 fL (82-100); MONOCYTES # (AUTO) 0.9 K/uL (0.1-1.30); MONOCYTES % (AUTO) 10.2 % (2.0-12.0); NEUTROPHILS # (AUTO) 6.2 K/uL (1.8-8.9); NEUTROPHILS % (AUTO) 66.7 % (43.0-81.0); PLATELET COUNT (AUTO) 204 K/uL (150-450); RED BLOOD CELL COUNT(AUTO) 4.23 MIL/uL (4.0-5.2); WHITE BLOOD COUNT (AUTO) 9.3 K/uL (4.3-11.0)
--- NOTE | 2021-05-16 07:31 | NUR ---
MS RN CLOSING NOTE PATIENT IN BED. A/OX4. NO S/S OF APPARENT DISTRESS. PAIN MANAGED WITH MEDICATION. NO IV FLUID RUNNING. R. FOOT EDEMA NOTED 3+. SAFETY KEPT IN PLACE THE WHOLE SHIFT: BED IN LOWEST, LOCKED POSITION. CALL LIGHT WITHIN REACH. REPOSITIONED Q2 HOURS. ALL NEEDS ATTENDED. ALL SCHED MEDS ADMINISTERED. WILL ENDORSE CARE TO MORNING RN.
--- NOTE | 2021-05-16 07:45 | NUR ---
MS RN OPENING NOTE RECEIVED PATIENT LYING IN BED, AWAKE, A/OX4. ON ROOM AIR - NO SOB OR DISTRESS NOTED. NO PAIN AT THIS TIME. IV ACCESS TO RIGHT UPPER ARM - MIDLINE - SALINE LOCKED. RIGHT FOOT EDEMA NOTED 3+. SAFETY MEASURES IN PLACE. CALL LIGHT WITHIN REACH. WILL CONTINUE TO MONITOR.
[2021-05-16 07:47] LABS: CALCIUM, SERUM 9.4 mg/dL (8.5-10.1); CREATININE 0.7 mg/dL (0.6-1.3); MAGNESIUM 1.8 mg/dL (1.8-2.4); PHOSPHORUS 3.6 mg/dL (2.5-4.9); POTASSIUM 4.2 mmol/L (3.5-5.1)
[2021-05-16] MEDS: GLUCERNA SHAKE 237 ML CAN PO SCH ×2 (08:03→16:03)
[2021-05-16] MEDS: CARVEDILOL 3.125 MG TABLET PO SCH ×2 (08:50→16:32)
[2021-05-16] MEDS: VORICONAZOLE 200 MG TABLET PO SCH (08:50)
[2021-05-16] MEDS: CLOTRIMAZOLE/BETAMETASONE DIPROPIONATE 15 GM TUBE TP SCH ×2 (08:51→16:33)
[2021-05-16] MEDS: INSULIN REGULAR, HUMAN 100 UNIT/ML 3 ML VIAL SQ PRN (11:59)
[2021-05-16] MEDS ORDERED: LEVO500T90 PO (12:28)
[2021-05-16 16:32] VITALS: BP 126/68
--- NOTE | 2021-05-16 17:36 | NUR ---
MS BIOMEDICAL SCIENTIST NOTE PATIENT DISCHARGED VIA AMBULANCE @ 1730. PATIENT STABLE, NO SOB OR DISCOMFORT NOTED. NO COMPLAINTS OF PAIN. PATIENT KEPT CLEAN AND DRY THROUGHOUT SHIFT. DISCHARGE PHOTOS TAKEN. ALL EXITCARE AND EDUCATION GONE OVER WITH PATIENT. PATIENT VERBALIZED UNDERSTANDING. PRESCRIPTION GIVEN TO PATIENT. IV REMOVED AND WRISTBAND REMOVED. PATIENT ACCOMPANIED TO LOBBY BY EMT'S VIA [employer]. MD AND CHARGE NURSE AWARE OF DISCHARGE.
== END 2021-05-16 17:30 | disposition home health service (06) | DRG 698 ==
LOC: ER 00:15 → TELE 01:53 → MED 05-14 08:44
PROVIDERS: ATTEND Nurse Practitioner Acute Care
PROC: 05H533Z Insertion of Infusion Device into Right Subclavian Vein, Percutaneous Approach (ICD-10-PCS; principal; 2021-05-12)
PROC: B546ZZA Ultrasonography of Right Subclavian Vein, Guidance (ICD-10-PCS; 2021-05-12)
DX: T83.511A Infection and inflammatory reaction due to indwelling urethral catheter, initial encounter (principal); A41.9 Sepsis, unspecified organism; E43 Unspecified severe protein-calorie malnutrition; B37.49 Other urogenital candidiasis; D68.59 Other primary thrombophilia; E87.2 Acidosis; J98.11 Atelectasis; E11.9 Type 2 diabetes mellitus without complications; I10 Essential (primary) hypertension; E83.39 Other disorders of phosphorus metabolism; K74.60 Unspecified cirrhosis of liver; Z20.822 Contact with and (suspected) exposure to COVID-19; E83.42 Hypomagnesemia; G20 Parkinson's disease; F02.80 Dementia in other diseases classified elsewhere, unspecified severity, without behavioral disturbance, psychotic disturbance, mood disturbance, and anxiety; Z86.16 Personal history of COVID-19; Z87.440 Personal history of urinary (tract) infections; Z90.49 Acquired absence of other specified parts of digestive tract; Z90.710 Acquired absence of both cervix and uterus; Z74.09 Other reduced mobility; E88.09 Other disorders of plasma-protein metabolism, not elsewhere classified; M62.50 Muscle wasting and atrophy, not elsewhere classified, unspecified site; R74.01 Elevation of levels of liver transaminase levels; Z68.24 Body mass index [BMI] 24.0-24.9, adult; Y84.6 Urinary catheterization as the cause of abnormal reaction of the patient, or of later complication, without mention of misadventure at the time of the procedure; Y92.009 Unspecified place in unspecified non-institutional (private) residence as the place of occurrence of the external cause; B37.3 Candidiasis of vulva and vagina
CPT/HCPCS: 36415; 71045-TC; 80048-TC; 80053-TC; 80076-TC; 80202-TC; 81001; 82962-TC; 83605-TC; 83735-TC; 84100-TC; 84484-TC; 85025-TC; 85730-TC; 87040-TC; 87081-TC; 87086-TC; 93970-TC; 97112-TC; 97530-TC; A4216; C9803; G0378; J0692; J0696; J1170; J1450; J1815; J2185; J2270; J3370; J3465; J3475; J7030; J7040; J7050; J7060; Q0163; Q9967

== ENCOUNTER 2021-09-27 15:43 | Inpatient (IN) | payer MEDICARE ==
[~2021-09-27] VITALS: Ht 167.6 cm; Wt 63.1 kg
[~2021-09-27 15:43] MED LIST changes: +LEVO500T90 PO; -NITR100C PO
--- NOTE | 2021-09-27 16:00 | NUR ---
BIB RA C/O SUPRAPUBIC PRESSURE SINCE YESTERDAY. ADMITS NAUSEA, FEVER, CHILLS, WEAKNESS. ADMITS BACK PAIN. A&OX4, NONAMBULATORY, BREATHING EVEN AND UNLABORED, BILATERALLY FOOT EDEMA, UNABLE TO LIFT LEGS AGAINST GRAVITY, LIMITED LOWER EXTREMITY ROM. UPPER EXTREMITY MUSCLE RIGIDITY. HX OF HTN.
[2021-09-27 16:28] LABS: BASOPHILS % (AUTO) 0.1 % (0.0-2.0); EOSINOPHILS % (AUTO) 0.1 % (0.0-6.0); HEMATOCRIT 44 % (33-45); LYMPHOCYTES # (AUTO) 1.6 K/uL (0.8-4.8); LYMPHOCYTES % (AUTO) 8.8 % (20.0-44.0); MEAN CORPUSCULAR HGB CONC 32 g/dl (31.0-36.0); MEAN CORPUSCULAR VOLUME 83 fL (82-100); MONOCYTES % (AUTO) 5.3 % (2.0-12.0); NEUTROPHILS # (AUTO) 15.7 K/uL (1.8-8.9); NEUTROPHILS % (AUTO) 85.7 % (43.0-81.0); PLATELET COUNT (AUTO) 372 K/uL (150-450); RED BLOOD CELL COUNT(AUTO) 5.33 MIL/uL (4.0-5.2); WHITE BLOOD COUNT (AUTO) 18.3 K/uL (4.3-11.0)
[2021-09-27 16:37] LABS: CALCIUM, SERUM 9.5 mg/dL (8.5-10.1); CARBON DIOXIDE 26 mmol/L (21-32); CHLORIDE 93 mmol/L (98-107); CREATININE 0.8 mg/dL (0.6-1.3); GLUCOSE 291 mg/dL (74-106); POTASSIUM 4.1 mmol/L (3.5-5.1); SODIUM SERUM 126 mmol/L (136-145); UREA NITROGEN, BLOOD 11 mg/dL (7-18)
[2021-09-27 16:43] LABS: ALANINE AMINOTRANSFERASE 159 U/L (12-78); ALBUMIN 2.4 g/dL (3.4-5.0); ALKALINE PHOSPHATASE 378 U/L (46-116); ASPARTATE AMINOTRANSFERASE 22 U/L (15-37); BILIRUBIN,TOTAL 0.7 mg/dL (0.2-1.0); TOTAL PROTEIN, SERUM 7.8 g/dL (6.4-8.2)
--- NOTE | 2021-09-27 16:44 | NUR ---
RETURNED FROM MRI
--- NOTE | 2021-09-27 16:55 | NUR ---
MOVE SHEET SUBMITTED.
[2021-09-27] MEDS ORDERED: IV NS 0.9% 1,000 ML BAG IV ONE (17:00)
[2021-09-27] MEDS ORDERED: PIPERACILLIN /TAZOBACTAM 3.375 G in IV D5W 50 ML IV ONE (17:30)
--- NOTE | 2021-09-27 18:15 | NUR ---
COVID TEST COLLECTED AND SENT TO LAB
--- NOTE | 2021-09-27 18:25 | NUR ---
LAB AT BEDSIDE
--- NOTE | 2021-09-27 18:51 | NUR ---
Angela abdul in [facility] - 09/27/21 at 1852 by [email or web address] URINE SAMPLE OBTAINED AND SENT TO LAB
--- NOTE | 2021-09-27 18:51 | NUR ---
urine collected and sent
[2021-09-27 19:19] LABS: BILIRUBIN,URINE NEGATIVE (NEGATIVE); LEUKOCYTE ESTERASE ,URINE MODERATE (NEGATIVE); NITRITE, URINE NEGATIVE (NEGATIVE); PROTEIN,URINE 100 mg/dl (NEGATIVE); UGLUCOSE NEGATIVE (NEGATIVE); UROBILINOGEN,URINE 0.2 EU/dL (0.2)
[2021-09-27 19:24] LABS: COLOR,URINE LIGHT YELLOW (YELLOW)
[2021-09-27] MEDS ORDERED: ACETAMINOPHEN 325 MG TABLET PO PRN (19:30)
[2021-09-27] MEDS ORDERED: Z GUARD REMEDY 2 OZ OINT TP PRN (19:30)
[2021-09-27] MEDS ORDERED: MAGNESIUM HYDROXIDE 30 ML UDC PO PRN (19:30)
[2021-09-27] MEDS ORDERED: ONDANSETRON HCL/PF 4 MG/2 ML VIAL IVP PRN (19:30)
[2021-09-27] MEDS ORDERED: DULAGLUTIDE 0.5 MG SQ SCH (19:30)
[2021-09-27] MEDS ORDERED: MAG HYDROX/AL HYDROX/SIMETH 30 ML UDC PO PRN (19:30)
[2021-09-27] MEDS ORDERED: ZOLPIDEM TARTRATE 5 MG TABLET PO PRN (19:30)
[2021-09-27 19:40] LABS: BACTERIA,URINE Many /HPF (None Seen); RBC,URINE TOO NUMEROUS TO COUN /HPF (0-2); SQUAMOUS EPITHELIAL CELL,UR Many /HPF (None Seen); WBC,URINE TOO NUMEROUS TO COUN /HPF (0-3)
--- NOTE | 2021-09-27 19:45 | NUR ---
MRSA SWAB COLLECTED AND SENT TO LAB. PATIENT'S BELONGINGS LIST DONE.
--- NOTE | 2021-09-27 21:11 | NUR ---
REPORT GIVEN TO JULIEN
--- NOTE | 2021-09-27 21:20 | NUR ---
FIRE PREVENTION RESEARCH ENGINEER OPENING RECEIVED PATIENT AT THIS TIME VIA [facility]. Archana/OX1-2. NO S/S OF APPARENT DISTRESS. DENIES PAIN. PATIENT NOTED TO HAVE MULTIPLE WOUNDS-- PICTURE TAKEN. JONES CATHETER DRAINING CLOUDY URINE. TELE MONITOR READING SINUS TACHY 113-114, HIGHEST OF 120 BPM. PATIENT HAS RIGHT UPPER ARM MIDLINE AND HAS AN ORDER OF NS @ 75 CC/HR -- WILL FOLLOW THROUGH ORDER. PATIENT WRIST BAND ON, BELONGINGS CHECKED AND CHARTED -- PATIENT HAVING $24.00 IN [place] IN HER SMALL BAG. PATIENT REPORT HAVING ADVANCED DIRECTIVE BUT PER PATIENT NO ONE CAN BRING COPY IN -- WHEN ASKED AGAIN PATIENT DOES NOT ANSWER ANYMORE, PUT FULL CODE FOR NOW. V/S FOLLOWS: 142/87, HR- 120, RR-18, SATURATION 99% ON ROOM AIR, AND T- 99.7 -- WILL INITIATE COOLING MEASURES.
--- NOTE | 2021-09-27 21:25 | NUR ---
PATIENT TRANFERRED TO [facility]- ON ACCT EXEC PER ACLS PROTOCOL WITHOUT INCIDENT ALL VS STABLE AT TIME OF TRANSFER
[2021-09-27] MEDS: IV NS 0.9% 1,000 ML IV SCH (23:28)
[2021-09-27] MEDS ORDERED: PIPERACILLIN /TAZOBACTAM 3.375 G VIAL IV ONE (23:36)
[2021-09-27 23:45] VITALS: BP 170/89
[2021-09-27] MEDS: PIPERACILLIN /TAZOBACTAM 3.375 G in IV D5W 50 ML IV SCH (23:58)
[2021-09-28] VITALS: BP 142/87
[2021-09-28 04:00] VITALS: BP 130/79
[2021-09-28 06:20] LABS: BASOPHILS % (AUTO) 0.3 % (0.0-2.0); EOSINOPHILS % (AUTO) 0.4 % (0.0-6.0); HEMATOCRIT 40 % (33-45); HEMOGLOBIN 13.2 g/dL (11.5-14.8); LYMPHOCYTES # (AUTO) 1.1 K/uL (0.8-4.8); LYMPHOCYTES % (AUTO) 11.4 % (20.0-44.0); MEAN CORPUSCULAR HGB CONC 33 g/dl (31.0-36.0); MEAN CORPUSCULAR VOLUME 83 fL (82-100); MONOCYTES % (AUTO) 9.5 % (2.0-12.0); NEUTROPHILS # (AUTO) 7.9 K/uL (1.8-8.9); NEUTROPHILS % (AUTO) 78.4 % (43.0-81.0); PLATELET COUNT (AUTO) 279 K/uL (150-450); RED BLOOD CELL COUNT(AUTO) 4.78 MIL/uL (4.0-5.2); WHITE BLOOD COUNT (AUTO) 10.1 K/uL (4.3-11.0)
[2021-09-28] MEDS: PIPERACILLIN /TAZOBACTAM 3.375 G in IV D5W 50 ML IV SCH ×4 (06:38→23:24)
[2021-09-28 07:05] LABS: CREATININE 0.8 mg/dL (0.6-1.3); MAGNESIUM 1.6 mg/dL (1.8-2.4); PHOSPHORUS 3.1 mg/dL (2.5-4.9); POTASSIUM 4.1 mmol/L (3.5-5.1)
--- NOTE | 2021-09-28 07:30 | NUR ---
CUSHION SPRING ASSEMBLER OPENING NOTES: RECEIVED PATIENT IN BED WHILE AWAKE. A/O X3. ABLE TO MAKE NEEDS KNOWN IN HAITIAN LANGUAGE. EVEN AND UNLABORED BREATHS, NO SOB NO RESPIRATORY DISTRESS NOTED. NO PAIN NOTED. ON TELE MONITORING . SINUS TACHY GF=[id number]. ON CARI IV INTACT AND PATENT. NO BLEEDING NO SWELLING NOTED. RUNNING NS @ 75 ML/HR. PERINEAL AND SACRAL RASHES NOTED. BILATERAL FA DISCOLORATION, RIGHT AND LEFT ANKLE WOUND NOTED. SAFETY PRECAUTIONS IN PLACE. SIDE RAILS UPX2, BED LOWEST POSITION AND LOCKED. CALL LIGHT AND TABLE WITHIN REACH. WILL CONTINUE TO MONITOR.
--- NOTE | 2021-09-28 07:32 | NUR ---
REPORT GIVEN TO FRANCISCA FOR CONTINUITY OF CARE.
[2021-09-28 08:00] VITALS: BP 112/61
[2021-09-28] MEDS: IV NS 0.9% 1,000 ML IV SCH ×2 (08:56→22:49)
[2021-09-28] MEDS: CARVEDILOL 3.125 MG TABLET PO SCH ×2 (08:57→17:27)
[2021-09-28] MEDS ORDERED: METFORMIN HCL PO SCH (09:00)
[2021-09-28] MEDS ORDERED: [UNRECOGNIZED DRUG - OTHER] PO SCH (09:00)
[2021-09-28] MEDS ORDERED: EMPAGLIFLOZIN PO SCH (09:00)
--- NOTE | 2021-09-28 09:36 | NUR ---
WOUND CARE CONSULT: PT PRESENTS WITH MULTIPLE SKIN ISSUES INCLUDING STAGE 2 ULCER TO SACRUM, SEVERE RED RASH TO INNER THIGHS, PERINEUM, AND BUTTOCKS, DISCOLORATION TO ARMS AND TO BILATERAL ANKLES, PEELING SKIN TO FEET/HEELS AND MISSING TOENAILS, PRESENT ON ADMISSION. DPM CONSULT REQUESTED FROM DR AGUILERA. RECOMMENDATIONS MADE FOR SKIN PROTECTION AND WOUND CARE. DISCUSSED WITH NURSING STAFF. [facility] AIRSS BED TO BE PLACED. MD IN AGREEMENT WITH PLAN OF CARE. Addendum: 09/28/21 at 0938 by BELEN JIMENES WNDNU Amended: Links added.
[2021-09-28] MEDS: Magnesium 1GM/D5W 100ML PREMIX 100 ML IV SCH ×2 (10:56→11:55)
[2021-09-28 12:00] VITALS: BP 114/59
[2021-09-28] MEDS ORDERED: DEXTROSE 50%-WATER 50 ML DISP.SYRIN IV PRN (12:00)
[2021-09-28] MEDS: BLOOD SUGAR DIAGNOSTIC 1 EACH STRIP IN SCH ×3 (12:09→22:25)
[2021-09-28] MEDS: INSULIN REGULAR, HUMAN 100 UNIT/ML 3 ML VIAL SQ PRN ×3 (12:13→22:30)
--- NOTE | 2021-09-28 13:52 | NUR ---
RN NOTES SEEN AND EXAMINED BY DR. AGUILERA, WITH ORDERS MADE AND CARRIED OUT.WOUND CARE DONE ORDERED.
--- NOTE | 2021-09-28 15:20 | NUR ---
SS Consult for: Severe rash/open skin perineum, thighs, buttocks, from . SW attempted to meet with pt. for interview. Pt. was tired and did not want to speak. SW will attempt again later.
[2021-09-28] MEDS: GLUCERNA SHAKE 237 ML CAN PO SCH ×2 (16:04→17:28)
[2021-09-28] MEDS: CLOTRIMAZOLE/BETAMETASONE DIPROPIONATE 15 GM TUBE TP SCH (17:28)
--- NOTE | 2021-09-28 18:30 | NUR ---
REAL ESTATE CLOSER CLOSING NOTES: PATIENT IN BED RESTING AND AWAKE. A/O X3. ABLE TO MAKE NEEDS KNOWN IN CROATIAN LANGUAGE. EVEN AND UNLABORED BREATHS, NO SOB NO RESPIRATORY DISTRESS NOTED. NO PAIN NOTED. ON TELE MONITORING . SINUS TACHY YT=834. CARI IV INTACT AND PATENT. NO BLEEDING NO SWELLING NOTED. RUNNING NS @ 75 ML/HR. PERINEAL AND SACRAL RASHES NOTED. BILATERAL FA DISCOLORATION, RIGHT AND LEFT ANKLE WOUND NOTED. ALL DUE MEDS AND TREATMENT DONE ORDERED. SON VISITED THE PATIENT.SAFETY PRECAUTIONS IN PLACE. SIDE RAILS UPX2, BED LOWEST POSITION AND LOCKED. CALL LIGHT AND TABLE WITHIN REACH. WILL ENDORSE ONCOMING SHIFT NURSE FOR MELVI..
[2021-09-28 20:21] VITALS: BP 120/56
[2021-09-29 00:10] VITALS: BP 110/57
[2021-09-29 05:10] VITALS: BP 91/56
[2021-09-29] MEDS: PIPERACILLIN /TAZOBACTAM 3.375 G in IV D5W 50 ML IV SCH ×4 (06:18→23:17)
[2021-09-29] MEDS: INSULIN REGULAR, HUMAN 100 UNIT/ML 3 ML VIAL SQ PRN ×4 (06:25→21:39)
[2021-09-29] MEDS: BLOOD SUGAR DIAGNOSTIC 1 EACH STRIP IN SCH ×4 (06:36→21:25)
--- NOTE | 2021-09-29 07:30 | NUR ---
C++ PROFESSOR OPENING NOTES: RECEIVED PATIENT IN BED WHILE AWAKE. A/O X3. ABLE TO MAKE NEEDS KNOWN IN [place] LANGUAGE. EVEN AND UNLABORED BREATHS, NO SOB NO RESPIRATORY DISTRESS NOTED. NO PAIN NOTED. ON TELE MONITORING . SINUS HR=75. CARI MIDLINE IV GAGUE #18 INTACT AND PATENT. NO BLEEDING NO SWELLING NOTED. RUNNING NS @ 75 ML/HR. PERINEAL AND SACRAL RASHES NOTED. BILATERAL FA DISCOLORATION, RIGHT AND LEFT ANKLE WOUND NOTED. REPOSITION THE PATIENT FOR COMFORT AND SKIN MANAGEMENT.SAFETY PRECAUTIONS IN PLACE. SIDE RAILS UPX2, BED LOWEST POSITION AND LOCKED. CALL LIGHT AND TABLE WITHIN REACH. WILL CONTINUE TO MONITOR.
[2021-09-29] MEDS: GLUCERNA SHAKE 237 ML CAN PO SCH ×2 (07:57→17:36)
[2021-09-29 08:00] VITALS: BP 138/79
[2021-09-29] MEDS: CLOTRIMAZOLE/BETAMETASONE DIPROPIONATE 15 GM TUBE TP SCH ×2 (08:40→17:36)
[2021-09-29] MEDS: CARVEDILOL 3.125 MG TABLET PO SCH ×2 (08:40→17:40)
[2021-09-29 10:06] LABS: BASOPHILS % (AUTO) 0.5 % (0.0-2.0); EOSINOPHILS % (AUTO) 1.2 % (0.0-6.0); HEMATOCRIT 39 % (33-45); HEMOGLOBIN 12.6 g/dL (11.5-14.8); LYMPHOCYTES # (AUTO) 1.7 K/uL (0.8-4.8); LYMPHOCYTES % (AUTO) 29.8 % (20.0-44.0); MEAN CORPUSCULAR HGB CONC 32 g/dl (31.0-36.0); MEAN CORPUSCULAR VOLUME 82 fL (82-100); MONOCYTES # (AUTO) 0.7 K/uL (0.1-1.30); MONOCYTES % (AUTO) 12.2 % (2.0-12.0); NEUTROPHILS # (AUTO) 3.2 K/uL (1.8-8.9); NEUTROPHILS % (AUTO) 56.3 % (43.0-81.0); PLATELET COUNT (AUTO) 230 K/uL (150-450); RED BLOOD CELL COUNT(AUTO) 4.74 MIL/uL (4.0-5.2); WHITE BLOOD COUNT (AUTO) 5.7 K/uL (4.3-11.0)
[2021-09-29 10:28] LABS: CALCIUM, SERUM 8.8 mg/dL (8.5-10.1); CREATININE 0.8 mg/dL (0.6-1.3); POTASSIUM 3.6 mmol/L (3.5-5.1)
--- NOTE | 2021-09-29 11:28 | NUR ---
SS Consult: SS consult for severe rash/open skin perineum, thighs, buttocks, from home. Pt. Is a 76-year-old female. Pt. demonstrates adequate insight to the reason for hospitalization. Per pt., she was brought to hospital by ambulance due to sepsis. Pt. mentioned that her son called the ambulance. Pt. was oriented x2, alert, and cooperative. During interview, pt. was capable of following directions, made appropriate eye-contact, and appeared tired. Pt.s speech was at a normal rate. Pt.s mood was elevated. NIKHIL explored pt.s Hx of mental health and substance abuse. Pt. reported no Hx of mental health, substance abuse, suicidal or homicidal. Pt. denies auditory hallucinations, visual hallucinations, paranoia, or delusions. NIKHIL explored pt.s living situation. Per pt., she lives with her son [Jorge, phone number: [phone]. [address] [place] [address]]. Pt. mentioned that her son is her caregiver and helps her clean out her wounds. Per EMR, pt. presents with multiple skin issues including stage 2 ulcer to sacrum, severe red rash to inner thighs, and buttocks, discoloration to arms and bilateral ankles, and missing toenails. Per pt., her son is a good support system. NIKHIL is concerned that pt. is not receiving the appropriate care at home. NIKHIL explored pt.s financial status. Per pt., she receives social security income. Plan: NIKHIL provided available senior resources and pt. accepted. NIKHIL made an APS report due not having the appropriate care at home [intake number: [id number]]. Resources Provided: ABUSE PREVENTION: ELDER ABUSE HOTLINE (03/06) ADULT PROTECTIVE SERVICES HOTLINE LONG-TERM CARE [facility] Region AREA ON AGING (HOTLINE) ADULT DAY HEALTH CARE CARE CENTERS: Private pay or Medi-nancy funded adult day care [place] [facility] , [facility] , [facility] , [facility] Day [facility] Care , [facility] Adult Day [facility] , [facility] , [place] [facility] Generation [facility] , [place] [facility] , [place] ALZHEIMERS DISEASE/DEMENTIA: Alzheimers Association Helpline [facility] Chapter www.alz.org/[facility] Department of Aging www.lacity.org Family Caregiver [place] www.caregiver.org [place] Caregiver Resources Center/Family Support www.intermountain healthcareanget.[facility].org CANCER RESOURCES: [place] Cancer Society www.cancer.org Cancer Support Community www.CancerSupportVvsb.org: CancerCare www.cancercare.org [facility] Cancer Support [place] www.[facility].org COMMUNITY HEALTH ASSOCIATIONS: AARP www.aarp.org ALS Association (ask for Donna) www.als.org [place] Diabetes Association www.diabetes.org [place] Heart Association www.heart.org [place] Lung Association www.lungusa.org [place] Parkinson Disease Association www.apdaparkinson.org [place] Darby , www.redcross.org Arthritis Foundation www.arthritis.org Crohns & Colitis Foundation of [place] www.ccfa.org/chapters/rohan National Multiple Sclerosis Society www.nationalmssociety.org Myasthenia Gravis Foundation www.myasthenia-ca.org National Stroke Association www.stroke.org CONSERVATORSHIP & GUARDIANSHIP: AARP Anastacia Sandoval Legal Services Center for Health Care Rights Eldercare Information and Referral Skeet Operator Foundation [facility]: [facility] Bar Referral Service [facility] Legal Services Office of the Public Guardian [place] EYESIGHT DISORDER RESOURCES: [place] Macular Degeneration Foundation [facility] www.[facility].org GRIEF AND BEREAVEMENT RESOURCES: [facility] [place] , [facility] THE [facility] , [facility] Bere[facility]ment Center , [place] HEARING DISORDER RESOURCES: [place] Telephone Access Program Deaf and Disabled Telecommunications Program www.ddtp.[facility].ca.gov HearRx Hearing Centers ([place]) Better Hearing Systems , [place] GLAD ([facility] Agency on Deafness) V/ TTY; Senior Oracle Database Developer , [facility] Hearing [facility] -low income hearing aid assistance www.PowerbyProxiholzer health systemringfoundation.org [place] [facility] , Radha HELP AT HOME CAREGIVER SUPPORT: In Home Support Services (Must have Medi-Nancy to be eligible) *Ask for a list of agencies that provide services to assist with care in the home. Local Senior Centers also have listings of care providers. HOME SAFETY MODIFICATIONS AND EQUIPMENT: Senior centers have additional referrals. [place] Housing and Community Investment Dept. Handyworker Program (low income) or Visit http://hcidla.lacity.org/nzb-jdnipl-xl for more information National Seating and Mobility and/or ; Forever Active www.foreveractivemed.Stamped Stay Home Safe www.Stayhomesafe.Stamped LIFE ALERT RESPONSE SYSTEM: Reflect Systems Services 757-301-3688 www. Teikon Life Alert 119-958-3339 wwwS-cubism Life Station 468-275-2259 www.Kisstixx.Stamped Safe Return [phone] www.alz.or/safereturn Cell Phones for Seniors www.PassKit MEALS AND FOOD PROGRAMS: [place] Meals on Wheels [phone] [place] Meals on Wheels [phone] [facility] [phone] [place] to the Homebound [phone] [place] to the Homebound [phone] [facility] to the Homebound [phone] [facility] to the Homebound [phone] [facility] [place] [phone] [facility] [phone] ONE Generation [phone] [facility] [phone] [facility] [phone] Meals on Wheels [phone] For all ages: $6.85/ meal w side. Delivered M-F from 10 am-1pm. Application and payment is done over the phone. Frozen meals available for weekends. Emergency Food [facility] [phone] [facility] Rail Car Painter/Sandblaster [phone] [facility] [phone] [facility]- Brown bag lunches [phone] [facility] [phone] MEAL/GROCERY DELIVERY PROGRAMS: [place] [facility] Babies [phone]- [facility] [phone] Magic Kitchen [phone] Moms Meals [phone] (ask Cordon for Discount Select grocery stores may provide delivery. MEDICAL INSURANCE SUPPORT SERVICES: Center for Health Care Rights [phone] Health Insurance Counseling/Advocacy Programs (HICAP)-Must have Medicare. Offers counseling for Medi-Nancy eligibility [phone] Department of Public Rail Car Painter/Sandblaster [phone] www.[facility].ca.gov Medicare [phone] www.socialsecurity.org Social Security [phone] SENIOR ACTIVITY PROGRAMS: *Contact a local senior center, adult school, recreation facility or community college for education, fitness, recreation, and social programs. Aquatic Therapy and Adapted Exercise programs through [facility] [phone] Encore at [facility] [phone] www.[facility]/encore U- Senior Friends [phone] [place] Senior Programs [phone] www.oasisnet.org Suddenly 65 www.zgaecyxc32.com SENIOR CENTERS: [facility] [phone] [facility] [phone] [facility] [phone] [facility] [phone] [facility] [phone] [facility] [phone] [facility] [facility] [phone] One Generation, [facility] [phone] [facility] [phone] [facility] [phone] [facility] [phone] [facility] [place] [phone] TRANSPORTATION: Local [facility] may have applications for transportation programs and additional resources. ACCESS Services [phone] Transportation for seniors and disabled persons 7 days a week requiring 254 hr. advance reservation. Must apply and register for program samir eligible. CITY RIDE [phone] or [phone] Transportation for seniors and persons with ADA card/metro disabled card in the [facility]. M-F only. Must register for services. ONE GENERATION [phone] Serves 65 years + in conjunction with NantWorkse program. Must be registered with both programs. A to B Transport [phone] Provides wheelchair/gurney van service. Adult Medical Transport [phone] Accepts Medi-nancy with prior authorization. Care Van [phone] Provides wheelchair Transport. [facility] Wide Transportation [phone] Provides gurney service Gentle Care [phone] Gurney Transport. [facility] Transportation [phone] wheelchair & gurney transport [facility] Transportation [phone] wheelchair & gurney transport [place] Non-Emergency Transport [phone] wheelchair & gurney transport Independent Living [place] [phone] Short Term Transportation primarily for adults with disabilities on social security income. Nominal fee may apply and a reservation is required. Borders [employer] Cab [phone] or [phone] [facility] [phone] [place] [address] Referral Services -[phone] For additional programs & services VETERANS RESOURCES: Submissions for Aid and Attendance should be done directly to Federal VA office locatd at : [address] [address] X110 National Caregiver Support Line [phone] [facility] Veterans Services Field Office [phone] [place] Department of Affairs [phone] Pension Information [phone]
[2021-09-29] MEDS: IV NS 0.9% 1,000 ML IV SCH (12:08)
--- NOTE | 2021-09-29 18:30 | NUR ---
AUGER MILL OPERATOR CLOSING NOTES: PATIENT IN BED RESTING AND AWAKE. A/O X3. ABLE TO MAKE NEEDS KNOWN IN PORTUGUESE LANGUAGE. EVEN AND UNLABORED BREATHS, NO SOB NO RESPIRATORY DISTRESS NOTED. NO PAIN NOTED. ON TELE MONITORING . SR=85, CARI IV INTACT AND PATENT. NO BLEEDING NO SWELLING NOTED. RUNNING NS @ 75 ML/HR. PERINEAL AND SACRAL RASHES NOTED. BILATERAL FA DISCOLORATION, RIGHT AND LEFT ANKLE WOUND NOTED. ALL DUE MEDS AND TREATMENT DONE ORDERED. SON AND VISITED THE PATIENT. ALL DUE MEDS GIVEN ORDERED.SAFETY PRECAUTIONS IN PLACE. SIDE RAILS UPX2, BED LOWEST POSITION AND LOCKED. CALL LIGHT AND TABLE WITHIN REACH. WILL ENDORSE ONCOMING SHIFT NURSE FOR MELVI..
--- NOTE | 2021-09-29 19:40 | NUR ---
TELE/RN OPENING NOTE RECEIVED PATIENT RESTING IN BED. AWAKE, ALERT AND ORIENTED X 4. ABLE TO MAKE NEEDS KNOWN. DENIES PAIN AT THIS TIME. CONTINUES ON ROOM AIR WITH NO S/SX OF RESPIRATORY DISTRESS NOTED. IV ACCESS TO RIGHT UPPER ARM MIDLINE #18G INTACT AND PATENT. CONTINUES ON IVF NS 0.9% @ 75ML/HR. CONTINUES ON IV ABX. CALL LIGHT WITHIN REACH. ASPIRATION, FALL AND SAFETY PRECAUTIONS MAINTAINED. WILL CONTINUE TO MONITOR.
[2021-09-29 20:00] VITALS: BP 101/73
--- NOTE | 2021-09-29 20:20 | NUR ---
TELE/RN NOTE PATIENT WITH C/O STOMACH DISCOMFORT AND HEARTBURN. ADMINISTERED PRN MAALOX WITH PENDING EFFECT. WILL CONTINUE TO MONITOR.
--- NOTE | 2021-09-29 22:45 | NUR ---
TELE/RN NOTE PATIENT WITH C/O SACRAL PAIN AND GENERALIZED PAIN 05/20. PATIENT ONLY HAS TYLENOL AVAILABLE AT THIS TIME AND IS REQUESTING NORCO. PAGED TYPEWRITER TESTER MD HELTON. AWAITING CALL BACK.
--- NOTE | 2021-09-29 22:55 | NUR ---
TELE/RN NOTE PRODUCT AMBASSADOR MD HELTON RETURNED CALL WITH NEW ORDER FOR NORCO 5/325MG Q6HRS PRN. ORDER INPUTTED AND CARRIED OUT.
[2021-09-29] MEDS: HYDROCODONE/APAP 5/325MG TABLET PO PRN (23:16)
[2021-09-30] MEDS: IV NS 0.9% 1,000 ML IV SCH (01:18)
[2021-09-30] MEDS: PIPERACILLIN /TAZOBACTAM 3.375 G in IV D5W 50 ML IV SCH ×4 (06:05→23:43)
[2021-09-30] MEDS: BLOOD SUGAR DIAGNOSTIC 1 EACH STRIP IN SCH ×4 (06:06→21:50)
[2021-09-30 06:27] LABS: CALCIUM, SERUM 8.2 mg/dL (8.5-10.1); CREATININE 0.7 mg/dL (0.6-1.3); POTASSIUM 3.7 mmol/L (3.5-5.1)
--- NOTE | 2021-09-30 06:40 | NUR ---
TELE/RN CLOSING NOTE PATIENT CURRENTLY SLEEPING IN BED. ALERT AND ORIENTED X 4. ABLE TO MAKE NEEDS KNOWN. DENIES PAIN AT THIS TIME. CONTINUES ON ROOM AIR WITH NO S/SX OF RESPIRATORY DISTRESS NOTED. IV ACCESS TO RIGHT UPPER ARM MIDLINE #18G INTACT AND PATENT. CONTINUES ON IVF NS 0.9% @ 75ML/HR. CONTINUES ON IV ABX. JONES CATHETER IN PLACE DRAINING CLEAR, YELLOW URINE. JONES OUTPUT WAS 800CC THIS SHIFT. CALL LIGHT WITHIN REACH. ASPIRATION, FALL AND SAFETY PRECAUTIONS MAINTAINED. WILL ENDORSE PLAN OF CARE TO ONCOMING SHIFT.
[2021-09-30] MEDS: INSULIN REGULAR, HUMAN 100 UNIT/ML 3 ML VIAL SQ PRN ×4 (06:50→22:11)
--- NOTE | 2021-09-30 07:16 | NUR ---
SOFTBALL UMPIRE OPENING NOTE RECEIVED PATIENT RESTING IN BED. AWAKE, ALERT AND ORIENTED X 4. ABLE TO MAKE NEEDS KNOWN. DENIES PAIN AT THIS TIME. CONTINUES ON ROOM AIR WITH NO S/SX OF RESPIRATORY DISTRESS NOTED. IV ACCESS TO RIGHT UPPER ARM MIDLINE #18G INTACT AND PATENT. CONTINUES ON IVF NS 0.9% @ 75ML/HR. CALL LIGHT WITHIN REACH. ASPIRATION, FALL AND SAFETY PRECAUTIONS MAINTAINED. WILL CONTINUE TO MONITOR.
[2021-09-30 08:00] VITALS: BP 92/58
--- NOTE | 2021-09-30 08:30 | NUR ---
AGRICULTURAL INSPECTOR NOTE SEEN BY DR. PAGAN.
[2021-09-30] MEDS: CARVEDILOL 3.125 MG TABLET PO SCH ×2 (09:00→17:03)
[2021-09-30] MEDS: CLOTRIMAZOLE/BETAMETASONE DIPROPIONATE 15 GM TUBE TP SCH ×2 (09:08→17:00)
[2021-09-30] MEDS: GLUCERNA SHAKE 237 ML CAN PO SCH ×2 (09:08→17:04)
[2021-09-30 15:01] LABS: BASOPHILS % (AUTO) 0.3 % (0.0-2.0); HEMATOCRIT 34 % (33-45); HEMOGLOBIN 11.1 g/dL (11.5-14.8); LYMPHOCYTES # (AUTO) 1.4 K/uL (0.8-4.8); LYMPHOCYTES % (AUTO) 24.6 % (20.0-44.0); MEAN CORPUSCULAR HGB CONC 33 g/dl (31.0-36.0); MEAN CORPUSCULAR VOLUME 83 fL (82-100); MONOCYTES # (AUTO) 0.6 K/uL (0.1-1.30); MONOCYTES % (AUTO) 10.5 % (2.0-12.0); NEUTROPHILS # (AUTO) 3.5 K/uL (1.8-8.9); NEUTROPHILS % (AUTO) 60.6 % (43.0-81.0); PLATELET COUNT (AUTO) 205 K/uL (150-450); RED BLOOD CELL COUNT(AUTO) 4.14 MIL/uL (4.0-5.2); WHITE BLOOD COUNT (AUTO) 5.9 K/uL (4.3-11.0)
[2021-09-30 16:00] VITALS: BP 108/65
--- NOTE | 2021-09-30 19:20 | NUR ---
DIGITAL MEDIA INTERN CLOSING NOTE PATIENT RESTING IN BED. AWAKE, ALERT AND ORIENTED X 4. ABLE TO MAKE NEEDS KNOWN. DENIES PAIN AT THIS TIME. CONTINUES ON ROOM AIR WITH NO S/SX OF RESPIRATORY DISTRESS NOTED. IV ACCESS TO RIGHT UPPER ARM MIDLINE #18G INTACT AND PATENT. CONTINUES ON IVF NS 0.9% @ 75ML/HR. CALL LIGHT WITHIN REACH. ASPIRATION, FALL AND SAFETY PRECAUTIONS MAINTAINED. WILL ENDORSE PATIENT FOR CONTINUITY OF CARE.
[2021-09-30 20:00] VITALS: BP 128/70
--- NOTE | 2021-09-30 20:08 | NUR ---
Patient A&Ox3. In bed with no signs of distress. Denies pain or discomfort. Is able to make needs known> however, d/t skin issues pt. will be turned q2h kept clean and dry, offloading bony prominences.
[2021-09-30] MEDS: HYDROCODONE/APAP 5/325MG TABLET PO PRN (21:50)
[2021-10-01] VITALS: BP 100/55
--- NOTE | 2021-10-01 05:10 | NUR ---
Catheter leaking- chux noted to be very wet. 300cc urine output in catheter also. When removing catheter sediment noted to be clogging old cath. white and thick making urine cloudy.
[2021-10-01] MEDS: PIPERACILLIN /TAZOBACTAM 3.375 G in IV D5W 50 ML IV SCH ×4 (06:03→23:39)
[2021-10-01] MEDS: BLOOD SUGAR DIAGNOSTIC 1 EACH STRIP IN SCH ×4 (06:42→22:33)
[2021-10-01] MEDS: INSULIN REGULAR, HUMAN 100 UNIT/ML 3 ML VIAL SQ PRN ×4 (06:43→22:26)
--- NOTE | 2021-10-01 07:21 | NUR ---
Patient A&Ox3. Denies pain or discomfort. Turned q2h. Kept clean and dry. Wound care done. c/o pain x1 to ankles and suprapubic area relieved by PRN norco and ice.
--- NOTE | 2021-10-01 07:25 | NUR ---
RN OPENING NOTE RECEIVED PATIENT IN BED. A/O X3. ON ROOM AIR, DENIES SOB. IN NO APPARENT DISTRESS. TELE READING SHOWS SR WITH PVC'S. DENIES ANY PAIN AT THIS TIME. IV ACCESS ON CARI MIDLINE, INTACT AND PATENT. SAFETY MEASURES MAINTAINED. BED IN LOWEST POSITION, BRAKES LOCKED. SIDE RAILS UP X2. CALL LIGHT WITHIN REACH. WILL CONTINUE PLAN OF CARE.
--- NOTE | 2021-10-01 07:37 | NUR ---
Catheter was leaking but noticed it was slightly kinked. Unkinked and readjusted catheter 150cc promptly came out collected fresh specimen. yellow and cloudy in fridge. Changed bed, keeping pt. clean and dry.
[2021-10-01] MEDS: CLOTRIMAZOLE/BETAMETASONE DIPROPIONATE 15 GM TUBE TP SCH ×2 (09:15→16:44)
[2021-10-01] MEDS: GLUCERNA SHAKE 237 ML CAN PO SCH ×2 (09:16→16:44)
[2021-10-01] MEDS: CARVEDILOL 3.125 MG TABLET PO SCH ×2 (09:16→16:44)
--- NOTE | 2021-10-01 18:42 | NUR ---
RN OPENING NOTE PATIENT RESTING IN BED. A/O X3. ON ROOM AIR, DENIES SOB. IN NO APPARENT DISTRESS. TELE READING SHOWS SR WITH PVC'S. IV ACCESS ON CARI MIDLINE, INTACT AND PATENT. DUE MEDS GIVEN ORDERED. ALL NEEDS HAVE BEEN MET AND ATTENDED. JONES WAS SEEN LEAKING BUT PT REFUSED TO BE TOUCHED AND CHANGED. SAFETY MEASURES MAINTAINED. BED IN LOWEST POSITION, BRAKES LOCKED. SIDE RAILS UP X2. CALL LIGHT WITHIN REACH. WILL ENDORSE CONTINUITY OF CARE TO ONCOMING SHIFT. Addendum: 10/01/21 at 1858 by YASHIRA ANNE RN RN CLOSING NOTE*
--- NOTE | 2021-10-01 19:37 | NUR ---
RN NOTES RECEIVED PATIENT IN BED, ALERT/ORIENTED X3, EATING DINNER, NOT IN DISTRESS, CARI MIDLINE, ZOSYN INFUSING, JONES CATHETER DRAINING, KEPT SAFE, CALL LIGHT WITHIN REACH. WILL CONTINUE TO MONITOR.
[2021-10-01 19:56] LABS: BASOPHILS % (AUTO) 0.2 % (0.0-2.0); EOSINOPHILS % (AUTO) 2.3 % (0.0-6.0); HEMATOCRIT 39 % (33-45); HEMOGLOBIN 12.5 g/dL (11.5-14.8); LYMPHOCYTES # (AUTO) 2.3 K/uL (0.8-4.8); LYMPHOCYTES % (AUTO) 22.9 % (20.0-44.0); MEAN CORPUSCULAR HGB CONC 32 g/dl (31.0-36.0); MEAN CORPUSCULAR VOLUME 83 fL (82-100); MONOCYTES # (AUTO) 0.7 K/uL (0.1-1.30); MONOCYTES % (AUTO) 7.5 % (2.0-12.0); NEUTROPHILS # (AUTO) 6.7 K/uL (1.8-8.9); NEUTROPHILS % (AUTO) 67.1 % (43.0-81.0); PLATELET COUNT (AUTO) 262 K/uL (150-450)
[2021-10-01 20:00] VITALS: BP 123/63
[2021-10-01 20:14] LABS: CALCIUM, SERUM 8.6 mg/dL (8.5-10.1); CARBON DIOXIDE 25 mmol/L (21-32); CHLORIDE 101 mmol/L (98-107); CREATININE 0.9 mg/dL (0.6-1.3); GLUCOSE 248 mg/dL (74-106); POTASSIUM 3.7 mmol/L (3.5-5.1); SODIUM SERUM 135 mmol/L (136-145); UREA NITROGEN, BLOOD 12 mg/dL (7-18)
[2021-10-01 20:22] VITALS: BP 123/63
[2021-10-01] MEDS: HYDROCODONE/APAP 5/325MG TABLET PO PRN (20:31)
[2021-10-01 23:41] LABS: BILIRUBIN,URINE NEGATIVE (NEGATIVE); COLOR,URINE YELLOW (YELLOW); LEUKOCYTE ESTERASE ,URINE LARGE (NEGATIVE); NITRITE, URINE NEGATIVE (NEGATIVE); PH,URINE 5.5 (5.0-8.0); PROTEIN,URINE TRACE mg/dl (NEGATIVE); UGLUCOSE NEGATIVE (NEGATIVE); UROBILINOGEN,URINE 0.2 EU/dL (0.2)
[2021-10-02] VITALS: BP 118/58
[2021-10-02 01:43] LABS: BACTERIA,URINE Many /HPF (None Seen); RBC,URINE 21-50 /HPF (0-2); SQUAMOUS EPITHELIAL CELL,UR Few /HPF (None Seen); WBC,URINE TOO NUMEROUS TO COUN /HPF (0-3)
[2021-10-02 04:00] VITALS: BP_SYST 102; BP_SYST 112; BP_DIAS 54
[2021-10-02] MEDS: PIPERACILLIN /TAZOBACTAM 3.375 G in IV D5W 50 ML IV SCH ×4 (05:09→23:12)
--- NOTE | 2021-10-02 06:12 | NUR ---
ALERT/ORIENTED X3, STABLE ON ROOM AIR, GIVEN NORCO 1 TAB X1 FOR HEADACHE, PER PATIENT'S REQUEST. PERINEAL AND BUTTOCKS RASHES, LOTRIMINE AND ZGUARD APPLIED, JONES CATHETER DRAINING WELL, ACCUCHECK AND SLIDING SCALE, CONTINUE ZOSYN, IVF HELD FOR NOW.
[2021-10-02] MEDS: BLOOD SUGAR DIAGNOSTIC 1 EACH STRIP IN SCH ×4 (06:37→21:40)
[2021-10-02] MEDS: INSULIN REGULAR, HUMAN 100 UNIT/ML 3 ML VIAL SQ PRN ×4 (06:39→21:46)
[2021-10-02 06:54] LABS: BASOPHILS % (AUTO) 0.3 % (0.0-2.0); EOSINOPHILS % (AUTO) 3.2 % (0.0-6.0); HEMATOCRIT 34 % (33-45); HEMOGLOBIN 11.1 g/dL (11.5-14.8); LYMPHOCYTES # (AUTO) 2.2 K/uL (0.8-4.8); LYMPHOCYTES % (AUTO) 26.3 % (20.0-44.0); MEAN CORPUSCULAR HGB CONC 33 g/dl (31.0-36.0); MEAN CORPUSCULAR VOLUME 83 fL (82-100); MONOCYTES # (AUTO) 0.6 K/uL (0.1-1.30); MONOCYTES % (AUTO) 7.4 % (2.0-12.0); NEUTROPHILS # (AUTO) 5.3 K/uL (1.8-8.9); NEUTROPHILS % (AUTO) 62.8 % (43.0-81.0); PLATELET COUNT (AUTO) 233 K/uL (150-450); RED BLOOD CELL COUNT(AUTO) 4.12 MIL/uL (4.0-5.2); WHITE BLOOD COUNT (AUTO) 8.5 K/uL (4.3-11.0)
--- NOTE | 2021-10-02 07:12 | NUR ---
RN OPENING NOTE RECEIVED PATIENT IN AWAKE BED. A/O X3. STABLE ON ROOM AIR, NO SOB OR S/S OF RESPIRATORY DISTRESS. EXTERNAL CARDIAC MONITORING READING SR WITH PVC'S. IV ACCESS ON CARI MIDLINE, INTACT AND PATENT. SAFETY MEASURES MAINTAINED. BED IN LOWEST LOCKED POSTION, SIDE RAILS UP X2. CALL LIGHT AND TABLE WITHIN REACH. WILL CONTINUE PLAN OF CARE.
[2021-10-02 07:45] LABS: CALCIUM, SERUM 8.4 mg/dL (8.5-10.1); CREATININE 0.6 mg/dL (0.6-1.3); POTASSIUM 3.6 mmol/L (3.5-5.1)
[2021-10-02 08:00] VITALS: BP 105/60
[2021-10-02] MEDS: GLUCERNA SHAKE 237 ML CAN PO SCH ×2 (08:25→17:32)
[2021-10-02] MEDS: CARVEDILOL 3.125 MG TABLET PO SCH ×2 (08:26→17:31)
[2021-10-02] MEDS: CLOTRIMAZOLE/BETAMETASONE DIPROPIONATE 15 GM TUBE TP SCH ×2 (08:27→17:32)
[2021-10-02 12:00] VITALS: BP 105/57
[2021-10-02 16:00] VITALS: BP 119/51
--- NOTE | 2021-10-02 18:27 | NUR ---
CAN VACUUM TESTER CLOSING NOTE PATIENT IN AWAKE BED. A/O X3. STABLE ON ROOM AIR, NO SOB OR S/S OF RESPIRATORY DISTRESS. EXTERNAL CARDIAC MONITORING READING SR WITH PVC'S HR 83. IV ACCESS ON CARI MIDLINE, INTACT AND PATENT. ALL NEEDS MET AT THIS TIME. SAFETY MEASURES MAINTAINED AT ALL TIMES. BED IN LOWEST LOCKED POSITION, SIDE RAILS UP X2. CALL LIGHT AND TABLE WITHIN REACH. WILL ENDORSE TO ONCOMING NURSE FOR MELVI.
--- NOTE | 2021-10-02 19:38 | NUR ---
BUTTON TUFTING MACHINE OPERATOR OPENING NOTE RECEIVED PATIENT IN AWAKE BED. A/O X3. STABLE ON ROOM AIR, NO SOB OR S/S OF RESPIRATORY DISTRESS. EXTERNAL CARDIAC MONITORING READING NSR WITH HR 89. IV ACCESS ON CARI MIDLINE, INTACT AND PATENT. SAFETY MEASURES MAINTAINED AT ALL TIMES. BED IN LOWEST LOCKED POSITION, SIDE RAILS UP X2. CALL LIGHT AND TABLE WITHIN REACH. WILL MONITOR PATIENT ACCORDINGLY
[2021-10-02 20:23] VITALS: BP 99/60
[2021-10-03 00:17] VITALS: BP 123/64
[2021-10-03 04:53] VITALS: BP 120/60
[2021-10-03] MEDS: BLOOD SUGAR DIAGNOSTIC 1 EACH STRIP IN SCH ×3 (05:44→21:57)
[2021-10-03] MEDS: PIPERACILLIN /TAZOBACTAM 3.375 G in IV D5W 50 ML IV SCH ×3 (05:51→18:02)
[2021-10-03] MEDS: INSULIN REGULAR, HUMAN 100 UNIT/ML 3 ML VIAL SQ PRN ×4 (06:11→21:59)
[2021-10-03 06:36] LABS: BASOPHILS % (AUTO) 0.3 % (0.0-2.0); EOSINOPHILS % (AUTO) 2.3 % (0.0-6.0); HEMATOCRIT 36 % (33-45); HEMOGLOBIN 11.8 g/dL (11.5-14.8); LYMPHOCYTES # (AUTO) 2.8 K/uL (0.8-4.8); LYMPHOCYTES % (AUTO) 26.6 % (20.0-44.0); MEAN CORPUSCULAR HGB CONC 33 g/dl (31.0-36.0); MEAN CORPUSCULAR VOLUME 82 fL (82-100); MONOCYTES # (AUTO) 0.7 K/uL (0.1-1.30); MONOCYTES % (AUTO) 6.4 % (2.0-12.0); NEUTROPHILS # (AUTO) 6.7 K/uL (1.8-8.9); NEUTROPHILS % (AUTO) 64.4 % (43.0-81.0); PLATELET COUNT (AUTO) 274 K/uL (150-450); RED BLOOD CELL COUNT(AUTO) 4.42 MIL/uL (4.0-5.2); WHITE BLOOD COUNT (AUTO) 10.4 K/uL (4.3-11.0)
--- NOTE | 2021-10-03 06:48 | NUR ---
WORKFORCE DEVELOPMENT ASSISTANT CLOSING NOTE PATIENT IN BED ,AWAKE A/O X3. STABLE ON ROOM AIR, NO SOB OR S/S OF RESPIRATORY DISTRESS. EXTERNAL CARDIAC MONITORING READING NSR WITH HR 89. IV ACCESS ON CARI MIDLINE, INTACT AND PATENT. NO S/SX OF HYPOGLYCEMIA NO DIZZINESS/ HEADACHE. ALL NEEDS MET.SAFETY MEASURES MAINTAINED AT ALL TIMES. BED IN LOWEST LOCKED POSITION, SIDE RAILS UP X2. CALL LIGHT AND TABLE WITHIN REACH. WILL ENDORSED PT. TO DAY TIME NURSE FOR MELVI
[2021-10-03 07:18] LABS: CALCIUM, SERUM 8.8 mg/dL (8.5-10.1); CREATININE 0.6 mg/dL (0.6-1.3)
--- NOTE | 2021-10-03 07:30 | NUR ---
CONFORMAL PAD FORMER OPENING NOTES RECEIVED PATIENT RESTING ON BED AWAKE AND A/O X3. ON ROOM AIR SATURATING WELL AT 99% O2 SATURATION. NO SOB NOTED. NOT IN DISTRESS. ON TELE MONITOR CURRENTLY READING SINUS RHYTHM AT 90BPM. WITH IV ACCESS AT CARI MIDLINE, SALINE LOCKED, INTACT AND PATENT. SAFETY MEASURES IN PLACED. BED IN LOWEST LOCKED POSITION, SIDE RAILS UP X2. CALL LIGHT AND TABLE WITHIN REACH. WILL CONTINUE TO MONITOR.
[2021-10-03 08:00] VITALS: BP 125/73
[2021-10-03] MEDS: CLOTRIMAZOLE/BETAMETASONE DIPROPIONATE 15 GM TUBE TP SCH ×2 (08:29→18:01)
[2021-10-03] MEDS: CARVEDILOL 3.125 MG TABLET PO SCH ×2 (08:29→17:30)
[2021-10-03] MEDS: GLUCERNA SHAKE 237 ML CAN PO SCH ×2 (08:29→18:01)
[2021-10-03 12:00] VITALS: BP 104/61
[2021-10-03] MEDS: HYDROCODONE/APAP 5/325MG TABLET PO PRN (12:17)
[2021-10-03] MEDS: FLUCONAZOLE IN NS 200 MG in PREMIX 1 EA IV SCH (13:29)
[2021-10-03 16:00] VITALS: BP 114/70
--- NOTE | 2021-10-03 18:00 | NUR ---
RN NOTE PATIENT'S JONES CATHETER WAS DISLODGED AND PATIENT REFUSED FOR REINSERTION. NOTIFIED DR. ARTEAGA AND ORDERED TO DISCONTINUE JONES CATHETER AND CHECK BLADDER SCAN AFTER 4 HOURS. WILL ENDORSE TO NEXT SHIFT.
--- NOTE | 2021-10-03 19:30 | NUR ---
SOLE TACKER CLOSING NOTES PATIENT RESTING ON BED AWAKE AND A/O X3. ON ROOM AIR SATURATING WELL AT 98% O2 SATURATION. NO SOB NOTED. NOT IN DISTRESS. ON TELE MONITOR CURRENTLY READING SINUS RHYTHM AT 92BPM. WITH IV ACCESS AT CARI MIDLINE, SALINE LOCKED, INTACT AND PATENT. WOUND CARE AND WOUND DRESSING DONE. SAFETY MEASURES IN PLACED. BED IN LOWEST LOCKED POSITION, SIDE RAILS UP X2. CALL LIGHT AND TABLE WITHIN REACH. WILL ENDORSE TO NEXT SHIFT FOR MELVI.
--- NOTE | 2021-10-03 19:30 | NUR ---
HOME HEALTH AID NOTE PATIENT IN BED, A/OX3-4. NOT EXHIBITING S/S OF APPARENT DISTRESS ON ROOM AIR. DENIES PAIN VIA FLACC. NO FLUIDS RUNNING AT THIS TIME. TELE MONITOR READING ST WITH PVC AND BIGEMINY. PATIENT DO NOT HAVE JONES CATHETER IN PLACE -- ENDORSED TO ME THAT IT WAS DISLODGED -- WHEN ASKED, PER PATIENT SHE AGREES TO EVERY CARE EXCEPT THE JONES, WILL MONITOR URINE AND OUTPUT. WILL CONTINUE WITH CARE PLAN.
[2021-10-03 20:21] VITALS: BP 97/76
--- NOTE | 2021-10-03 23:35 | NUR ---
COAL EQUIPMENT OPERATOR NOTE BLADDER SCAN DONE AT THIS TIME. THE MOST I GOT IS 46 ML. WILL LET DOCTOR BON KNOW.
--- NOTE | 2021-10-03 23:48 | NUR ---
GEOTHERMAL HVAC TECHNICIAN NOTE MESSAGED DOCTOR BON ABOUT THE BLADDER SCAN RESULT AND ASKED IF HE WANTED TO DO A REPEAT IN THE AM. AWAITING FOR DOCTOR RESPONSE.
[2021-10-04] VITALS: BP 106/58
[2021-10-04] MEDS: PIPERACILLIN /TAZOBACTAM 3.375 G in IV D5W 50 ML IV SCH ×3 (00:18→12:35)
[2021-10-04 04:37] VITALS: BP 110/76
[2021-10-04] MEDS: BLOOD SUGAR DIAGNOSTIC 1 EACH STRIP IN SCH ×2 (06:57→12:35)
[2021-10-04] MEDS: INSULIN REGULAR, HUMAN 100 UNIT/ML 3 ML VIAL SQ PRN (06:59)
--- NOTE | 2021-10-04 07:22 | NUR ---
SAS DEVELOPER OPENING NOTES RECEIVED PATIENT ASLEEP. PATIENT IN BED A/O X4. ABLE TO MAKE NEEDS KNOWN. PATIENT ON ROOM AIR WITH EQUAL AND UNLABORED BREATHING. WITH RIGHT UPPER ARM MIDLINE ON SALINE LOCK. PATIENT ABLE TO VOID WITHOUT ANY PROBLEM. SAFETY MEASURES IN PLACE, HOB ELEVATED, CALL LIGHT WITHIN REACH, BED IN LOWEST POSITION AND LOCKED. WILL CONTINUE MONITORING PATIENT.
--- NOTE | 2021-10-04 07:38 | NUR ---
MOLDER PIPE COVERING NOTE REPORT GIVEN TO DOM FOR CONTINUITY OF CARE.
[2021-10-04 08:00] VITALS: BP 106/63
[2021-10-04] MEDS: CLOTRIMAZOLE/BETAMETASONE DIPROPIONATE 15 GM TUBE TP SCH (08:38)
[2021-10-04] MEDS: GLUCERNA SHAKE 237 ML CAN PO SCH (08:39)
[2021-10-04] MEDS: CARVEDILOL 3.125 MG TABLET PO SCH (08:39)
--- NOTE | 2021-10-04 11:30 | NUR ---
ACCOUNTS RECEIVABLE EXECUTIVE NOTE PATIETN SEEN BY DR. THOMAS WITH ORDER FOR DISCHARGE. HEALTH TEACHING DONE REGARDING DISCHARGE AND DISCHARGE INSTRUCTIONS. PATIETN VERBALIZED UNDERSTANDING AND APPRECIATION. WILL CONTINUE TO MONITOR PATIENT.
[2021-10-04 12:00] VITALS: BP 92/53
[2021-10-04] MEDS ORDERED: NITR100C6 PO (12:41)
[2021-10-04] MEDS ORDERED: FLUC200T8 PO (12:41)
[2021-10-04] MEDS: FLUCONAZOLE IN NS 200 MG in PREMIX 1 EA IV SCH (13:02)
[2021-10-04 16:00] VITALS: BP 139/63
--- NOTE | 2021-10-04 17:10 | NUR ---
RN NOTE PATIENT DISCHARGED ORDERED IN STABLE CONDITION. IV ACCESS REMOVED AND COVERED WITH DRESSING. PROCEDURE TOLERATED WELL. PATIENT PICKED UP BY 2 EMT PERSONNEL, IN STABLE CONDITION. ENDORSED ACCORDINGLY.
[2021-10-06] MEDS ORDERED: DOXY-326 PO (14:49)
== END 2021-10-04 17:15 | disposition home or self-care (01) | DRG 871 ==
LOC: ER 15:52 → TELE 20:45
PROVIDERS: ADMIT Family Medicine; ATTEND Internal Medicine
PROC: 05H533Z Insertion of Infusion Device into Right Subclavian Vein, Percutaneous Approach (ICD-10-PCS; principal; 2021-09-27)
PROC: B546ZZA Ultrasonography of Right Subclavian Vein, Guidance (ICD-10-PCS; 2021-09-27)
DX: A41.9 Sepsis, unspecified organism (principal); E43 Unspecified severe protein-calorie malnutrition; N13.6 Pyonephrosis; E87.1 Hypo-osmolality and hyponatremia; I50.32 Chronic diastolic (congestive) heart failure; B37.41 Candidal cystitis and urethritis; L97.419 Non-pressure chronic ulcer of right heel and midfoot with unspecified severity; L97.429 Non-pressure chronic ulcer of left heel and midfoot with unspecified severity; E11.65 Type 2 diabetes mellitus with hyperglycemia; I11.0 Hypertensive heart disease with heart failure; M06.9 Rheumatoid arthritis, unspecified; Z90.710 Acquired absence of both cervix and uterus; E11.40 Type 2 diabetes mellitus with diabetic neuropathy, unspecified; E78.5 Hyperlipidemia, unspecified; Z20.822 Contact with and (suspected) exposure to COVID-19; E88.09 Other disorders of plasma-protein metabolism, not elsewhere classified; R74.01 Elevation of levels of liver transaminase levels; E86.1 Hypovolemia; E11.621 Type 2 diabetes mellitus with foot ulcer; L97.519 Non-pressure chronic ulcer of other part of right foot with unspecified severity; L97.529 Non-pressure chronic ulcer of other part of left foot with unspecified severity; M79.672 Pain in left foot; M79.671 Pain in right foot; Z79.84 Long term (current) use of oral hypoglycemic drugs; Z68.22 Body mass index [BMI] 22.0-22.9, adult; Z87.440 Personal history of urinary (tract) infections; Z99.3 Dependence on wheelchair
CPT/HCPCS: 36415; 71045-TC; 80048-TC; 80053-TC; 81001; 82962-TC; 83605-TC; 83735-TC; 84100-TC; 84484-TC; 85025-TC; 87040-TC; 87081-TC; 87086-TC; A4216; A6253; C9803; G0378; J1450; J1815; J2543; J3475; J7030; J7050; J7060